=== PATIENT | female | born 1935 | race Caucasian/White ===

== ENCOUNTER 2016-12-19 17:47 | Inpatient (IN) | payer MEDICARE, OTHER, MEDICAID ==
[2016-12-19] MEDS ORDERED: Sodium Polystyrene Sulfonate 15 GM/60 ML Susp 60 ML Bot PO ONE (18:42)
--- NOTE | 2016-12-19 19:06 | EDM.PDOC ---
ED HPI GENERAL MEDICAL PROBLEM - General Chief Complaint: General Stated Complaint: Shortness of Breath Time Seen by Provider: 12/19/16 17:59 Source of Information: Reports: Patient, RN Notes Reviewed History Limitations: Reports: Other (questionable reliability) - History of Present Illness INITIAL COMMENTS - FREE TEXT/NARRATIVE: Patient sent here from [place] for evaluation of continuing cough that has been treated with Doxy since December 15. Patient denies any antibiotics during history and ROS. Today patient was complaining that she felt more SOB than usual. NH said that room air sats were around 93%, patient usually is around 95% . No fevers or other changes noted by NH. Patient has been doing fine and eating well otherwise. Patient's complaints during ROS included continued cough , SOB sensation when coughing (not when not coughing) and chest wall aches anteriorly when coughing. - Related Data Allergies Allergy/AdvReac Type Severity Reaction Status Date / Time codeine Allergy Hives Verified 11/18/15 14:18 morphine Allergy Cannot Verified 11/18/15 14:18 Remember Penicillins Allergy Hives Verified 11/18/15 14:18 Sulfa (Sulfonamide Allergy Hives Verified 11/18/15 14:18 Antibiotics) Home Meds: Home Meds Insulin Glarg,Human.Rec.Analog [Lantus] 35 unit SUBCUT BEDTIME 01/04/14 [History ] Aspirin 81 mg PO DAILY 11/18/15 [History] Lisinopril 10 mg PO DAILY 11/18/15 [History] Pregabalin [Lyrica] 100 mg PO DAILY 11/18/15 [History] ALPRAZolam [Xanax] 0.25 mg PO TID 12/19/16 [History] Acetaminophen 650 mg PO Q6HR PRN 12/19/16 [History] Acetaminophen [Acetaminophen Extra Strength] 500 mg PO DAILY 12/19/16 [History] Acetaminophen/HYDROcodone [[place] 325-5 MG] 1 tab PO DAILY PRN 12/19/16 [History] Acetaminophen/HYDROcodone [[place] 325-5 MG] 1 tab PO Q6H 12/19/16 [History] Acetylcysteine [Mucomyst 20%] 200 mg NEB TID 12/19/16 [History] Albuterol/Ipratropium [DuoNeb 3.0-0.5 MG/3 ML] 3 ml NEB Q6HRRT 12/19/16 [History ] Benzonatate [Tessalon Perles] 200 mg PO TID PRN 12/19/16 [History] Doxycycline Hyclate 100 mg PO BID 12/19/16 [History] Fexofenadine HCl [Allergy Relief] 180 mg PO Q12HR PRN 12/19/16 [History] Hydrocodone/Acetaminophen [[place] 5-325 Tablet] 1 each PO BEDTIME 12/19/16 [ History] Insulin Aspart [NovoLOG] 15 unit SUBCUT TIDAC 12/19/16 [History] Loperamide HCl [Imodium A-D] 4 mg PO ASDIRECTED PRN 12/19/16 [History] Magnesium Oxide 400 mg PO DAILY 12/19/16 [History] Multivitamin [Multi-Day Vitamins] 1 each PO DAILY 12/19/16 [History] Mupirocin Oint [Bactroban Oint] 22 gm TOP Q8HR PRN 12/19/16 [History] Polyethylene Glycol 3350 [MiraLAX] 17 gm PO DAILY 12/19/16 [History] Ranitidine HCl [Zantac 75] 75 mg PO BID 12/19/16 [History] Trolamine Salicylate/Aloe Vera [Analgesic Creme 10% Cream] 85 gm TP ASDIRECTED PRN 12/19/16 [History] amLODIPine [Norvasc] 5 mg PO DAILY 12/19/16 [History] busPIRone HCl [Buspirone HCl] 7.5 mg PO BEDTIME 12/19/16 [History] busPIRone HCl [Buspirone HCl] 15 mg PO DAILY 12/19/16 [History] guaiFENesin/Dextromethorphan [Guaifenesin Dm Syrup] 10 ml PO Q4HR PRN 12/19/16 [ History] Past Medical History HEENT History: Reports: Cataract, Hard of Hearing, Impaired Vision Cardiovascular History: Reports: Arrhythmia, Blood Clots/VTE/DVT, High Cholesterol, Hypertension, PVD Respiratory History: Reports: COPD Gastrointestinal History: Reports: Chronic Constipation, GERD Genitourinary History: Reports: Urinary Incontinence, UTI, Recurrent [facility] History: Reports: Dysfunctional Uterine Bleeding, Fibroids, Musculoskeletal History: Reports: Amputation, Back Pain, Chronic, Neck Pain, Chronic, Osteoarthritis, Osteoporosis, Other (See Below) Other Musculoskeletal History: osteomyelitis of the left heel by bone scan on with 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 Neurological History: Reports: Alzheimers Disease, Neuropathy, Diabetic Psychiatric History: Reports: Anxiety, Dementia, Depression Endocrine/Metabolic History: Reports: Diabetes, Type II, IDDM, Osteoporosis Hematologic History: Reports: None Immunologic History: Reports: None Oncologic (Cancer) History: Reports: None Dermatologic History: Reports: Other (See Below) Other Dermatologic History: chronic diabetic foot ulcers - Infectious Disease History Infectious Disease History: Reports: Chicken Pox - Past Surgical History Head Surgeries/Procedures: Reports: None HEENT Surgical History: Reports: Adenoidectomy, Oral Surgery, Tonsillectomy Respiratory Surgical History: Reports: None Female Surgical History: Reports: Hysterectomy, Salpingo-Oophorectomy Oncologic Surgical History: Reports: None - Past Imaging History Past Imaging History: Reports: Bone Scan Social & Family History - Family History : Reports: UTI, Recurrent - Tobacco Use Smoking Status *Q: Current Some Day Smoker Years of Tobacco use: 72 Packs/Tins Daily: 1 Used Tobacco, but Quit: No Month Tobacco Last Used: January Second Hand Smoke Exposure: No - Caffeine Use Caffeine Use: Reports: Coffee - Alcohol Use Days Per Week of Alcohol Use: 0 - Recreational Drug Use Recreational Drug Use: No Drug Use in Last 12 Months: No Recreational Drug Type: Reports: Vicodin, Other (see below) (Tramadol) Recreational Drug Use Frequency: Daily - Living Situation & Occupation Living situation: Reports: , Extended Care Facility Occupation: Retired ED ROS GENERAL - Review of Systems Review Of Systems: See Below (questionable reliability) Constitutional: Reports: No Symptoms. Denies: Fever, Chills, Weakness, Diaphoresis, Decreased Appetite HEENT: Reports: No Symptoms. Denies: Rhinitis, Sinus Problem, Throat Pain Respiratory: Reports: Shortness of Breath (with coughing), Cough, Other ( anterior chest discomfort bilaterally when coughing). Denies: Wheezing, Pleuritic Chest Pain, Sputum, Hemoptysis Cardiovascular: Reports: No Symptoms Endocrine: Reports: No Symptoms GI/Abdominal: Reports: No Symptoms : Reports: No Symptoms Musculoskeletal: Reports: No Symptoms (no acute changes otherwise) Skin: Reports: No Symptoms Neurological: Reports: No Symptoms Psychiatric: Reports: No Symptoms Hematologic/Lymphatic: Reports: No Symptoms ED EXAM, GENERAL - Physical Exam Exam: See Below Exam Limited By: No Limitations General Appearance: Alert, No Apparent Distress, Obese Eye Exam: Bilateral Eye: EOMI, PERRL Ears: Normal External Exam, Normal Canal, Hearing Grossly Normal, Normal TMs Nose: Normal Inspection, Normal Mucosa, No Blood Throat/Mouth: Normal Inspection, Normal Oropharynx, Normal Voice, No Airway Compromise Head: Atraumatic, Normocephalic Neck: Normal Inspection, Supple, Non-Tender, Full Range of Motion. No: Carotid Bruit, Lymphadenopathy (L), Lymphadenopathy (R) Respiratory/Chest: No Respiratory Distress, No Accessory Muscle Use, Chest Non- Tender, Rhonchi (throughout all leos). No: Crackles, Rales, Wheezing, Stridor , Accessory Muscle Use Cardiovascular: Normal Peripheral Pulses, Regular Rate, Rhythm, No Murmur Peripheral Pulses: 2+: Radial (L), Radial (R) GI/Abdominal: Normal Bowel Sounds, Soft, Non-Tender Back Exam: Normal Inspection. No: CVA Tenderness (L), CVA Tenderness (R), Muscle Spasm, Paraspinal Tenderness, Vertebral Tenderness Extremities: Normal Capillary Refill, Pedal Edema (right lower leg (left lower leg amputated) has mild edema). No: Leg Pain Neurological: Alert, Normal Reflexes, No Motor/Sensory Deficits Psychiatric: Normal Affect, Normal Mood Skin Exam: Warm, Dry, Other (has dry skin with some excoriations lower right leg. ) Course - Vital Signs Last Recorded V/S: Last Vital Signs Temp 36.8 C 12/19/16 17:58 Pulse 63 12/19/16 17:58 Resp 18 12/19/16 17:58 BP 106/63 12/19/16 17:58 Pulse Ox 98 12/19/16 17:58 - Orders/Labs/Meds Orders: Active Orders 24 hr Category Date Time Status CXR [Chest 2V] [CR] Stat Exams 12/19/16 17:52 Taken UA W/MICROSCOPIC [URIN] Stat Lab 12/19/16 17:53 Uncollected Labs: Laboratory Tests 12/19/16 12/19/16 Range/Units 18:05 18:05 WBC 7.4 (4.0-10.2) K/uL RBC 3.56 L (3.77-5.09) M/uL Hgb 10.5 L (11.7-15.5) g/dL Hct 34.2 (34.0-46.0) % MCV 96.1 (84.0-98.0) fL MCH 29.5 (28.2-33.3) pg MCHC 30.7 L (31.7-36.0) g/dL RDW 14.2 H (11.2-14.1) % Plt Count 347 (150-350) K/uL Neut % (Auto) 67.1 (45.0-80.0) % Lymph % (Auto) 23.6 (10.0-50.0) % Hitchcock % (Auto) 5.5 (2.0-14.0) % Eos % (Auto) 2.6 (0.0-5.0) % Baso % (Auto) 1.2 (0.0-2.0) % Neut # (Auto) 4.98 (1.40-7.00) K/uL Lymph # (Auto) 1.75 (0.50-3.50) K/uL Hitchcock # (Auto) 0.41 (0.00-1.00) K/uL Eos # (Auto) 0.19 (0.00-0.50) K/uL Baso # (Auto) 0.09 (0.00-0.20) K/uL Sodium 132 L (136-145) mmol/L Potassium 6.5 H* (3.5-5.1) mmol/L Chloride 100 (98-107) mmol/L Carbon Dioxide 22.4 (21.0-32.0) mmol/L BUN 58 H (7-18) mg/dL Creatinine 1.74 H (0.51-1.17) mg/dL Est Cr Clr Drug Dosing 23.74 mL/min Estimated GFR (MDRD) 28 mL/min Glucose 173 H (74-106) mg/dL Calcium 9.1 (8.5-10.1) mg/dL Total Bilirubin 0.2 (0.2-1.0) mg/dL AST 35 (15-37) U/L ALT 43 (12-78) U/L Alkaline Phosphatase 131 H (46-116) IU/L Wry-[id number]-Aiykywpmuvy Pept 1997 H (0-125) pg/mL Total Protein 8.9 H (6.4-8.2) g/dL Albumin 3.3 L (3.4-5.0) g/dL Meds: Medications Discontinued Medications Generic Name Dose Route Start Last Admin Trade Name Nadeem PRN Reason Stop Dose Admin Sodium Polystyrene Sulfonate 15 gm 12/19/16 18:42 12/19/16 18:56 Kayexalate PO 12/19/16 18:43 15 gm ONETIME ONE Administration - Radiology Interpretation Free Text/Narrative:: Chest xray performed, third one in the last few weeks. No overall acute change. May have small infiltrate left lower lung. COPD. Mild CHF. - Re-Assessments/Exams Free Text/Narrative Re-Assessment/Exam: 12/19/16 19:11 Vital signs stable. O2 sats 98% room air. WBC normal. Hgb 10.5 Chem showed K of 6.5. Na 132, Cr 1.74, Glu 173 BNP 1996 Patient admitted for treatment of hyperkalemia. Cough heard in ER was dry cough. Patient will be continued on Doxy. Has been afebrile. No elevation in WBC. May be viral in nature and may include COPD/ reactive airway disease component. Will treat with nebs and small amount of prednisone. Blood sugars will be monitored as they will likely elevate secondary to the treatment plan. Will also give smaller amount of lasix given elevated BNP and observe for further improvement. Anticipate 2-3 day stay inpatient. Departure - Departure Time of Disposition: 19:17 Disposition: Admitted As Inpatient 66 Condition: good Clinical Impression: Hyperkalemia, Hyponatremia, Renal insufficiency, IDDM (insulin dependent diabetes mellitus), Respiratory tract infection Clinical Impression: (Ruled Out): Cough - Discharge Information Forms: ED Department Discharge - Problem List & Annotations (1) IDDM (insulin dependent diabetes mellitus) SNOMED Code(s): 54947582 Code(s): E11.9 - TYPE 2 DIABETES MELLITUS WITHOUT COMPLICATIONS; Z79.4 - PENITENTIARY (CURRENT) USE OF INSULIN Status: Chronic Priority: Medium Current Visit: Yes Annotation/Comment:: Blood sugar of 170 today in the emergency room. Otherwise blood sugars apparently stable by limited history. (2) Dementia SNOMED Code(s): 86772528 Code(s): F03.90 - UNSPECIFIED DEMENTIA WITHOUT BEHAVIORAL DISTURBANCE Status: Chronic Priority: Low Current Visit: No Qualifiers: Dementia type: unspecified type Dementia behavioral disturbance: without behavioral disturbance Qualified Code(s): F03.90 - Unspecified dementia without behavioral disturbance (3) Hyperkalemia SNOMED Code(s): 69836507 Code(s): E87.5 - HYPERKALEMIA Status: Acute Priority: High Current Visit: Yes (4) Hyponatremia SNOMED Code(s): 91967061 Code(s): E87.1 - HYPO-OSMOLALITY AND HYPONATREMIA Status: Acute Priority : Medium Current Visit: Yes (5) Renal insufficiency SNOMED Code(s): 531793357, 077481851 Code(s): N28.9 - DISORDER OF KIDNEY AND URETER, UNSPECIFIED Status: Chronic Priority: Low Current Visit: Yes (6) Respiratory tract infection SNOMED Code(s): 457079534, 006262367, 504968429 Code(s): J98.8 - OTHER SPECIFIED RESPIRATORY DISORDERS Status: Acute Priority: Medium Current Visit: Yes - Problem List Review Problem List Initiated/Reviewed/Updated: Yes - My Orders Last 24 Hours: My Active Orders 12/19/16 17:52 CXR [Chest 2V] [CR] Stat 12/19/16 17:53 UA W/MICROSCOPIC [URIN] Stat - Assessment/Plan Admission H&P: Please use this note as an admission H&P Last 24 Hours: My Active Orders 12/19/16 17:52 CXR [Chest 2V] [CR] Stat 12/19/16 17:53 UA W/MICROSCOPIC [URIN] Stat Assessment:: Hyperkalemia, hyponatremia, respiratory tract infection/bronchitis. Plan: as above.
[2016-12-19] MEDS ORDERED: Sodium Chloride 0.9% 10 ML Syringe FLUSH PRN (19:27)
[2016-12-19] MEDS ORDERED: Sodium Chloride 0.9% 1,000 ML IV ONE (19:28)
[2016-12-19] MEDS ORDERED: LOPERAMIDE HCL 4 MG PO PRN (19:29)
[2016-12-19] MEDS ORDERED: Mupirocin Oint 22 GM Tube TOP PRN (19:29)
[2016-12-19] MEDS ORDERED: Acetaminophen/HYDROcodone 325-5 MG Tab PO PRN (19:29)
[2016-12-19] MEDS ORDERED: Acetaminophen 325 MG Tab PO PRN (19:29)
[2016-12-19] MEDS ORDERED: guaiFENesin/Dextromethorphan 100-10 MG/5 ML Soln 10 ML Cup PO PRN (19:29)
[2016-12-19] MEDS ORDERED: ALOE VERA TP PRN (19:29)
[2016-12-19] MEDS ORDERED: Benzonatate 100 MG Cap PO PRN (19:29)
[2016-12-19] MEDS ORDERED: TROLAMINE SALICYLATE TP PRN (19:29)
[2016-12-19] MEDS ORDERED: Doxycycline 100 MG Cap PO SCH (19:30)
[2016-12-19] MEDS ORDERED: Nicotine 21 MG/24 Hr Patch TRDERM SCH (19:30)
[2016-12-19] MEDS ORDERED: Sodium Polystyrene Sulfonate 15 GM/60 ML Susp 60 ML Bot PO SCH (19:30)
[2016-12-19] MEDS ORDERED: Acetaminophen/HYDROcodone 325-5 MG Tab PO SCH ×2 (19:30→20:00)
[2016-12-19] MEDS ORDERED: predniSONE 20 MG Tab PO ONE (19:38)
[2016-12-19] MEDS ORDERED: Furosemide 20 MG Tab PO ONE (19:42)
[2016-12-19] MEDS ORDERED: Azithromycin 500 MG in Sodium Chloride 0.9% 250 ML IV SCH (19:45)
[2016-12-19] MEDS ORDERED: [UNRECOGNIZED DRUG - OTHER] SUBCUT SCH (20:00)
[2016-12-19] MEDS ORDERED: INSULIN GLARGINE SUBCUT SCH (20:00)
[2016-12-19] MEDS ORDERED: Albuterol/Ipratropium 3.0-0.5 MG/3 ML Neb Soln NEB SCH (20:00)
[2016-12-19] MEDS ORDERED: BUSPIRONE HCL 7.5 MG PO SCH (20:00)
[2016-12-19] MEDS ORDERED: Loperamide 2 MG Tab PO PRN (20:09)
[2016-12-19 21:20] VITALS: BP 165/46
--- NOTE | 2016-12-19 23:06 | PCM.DCSUM1 ---
Discharge Summary - Hospital Course Brief History: Admitted for treatment of hyperkalemia and cough. Noted after admission to have intermittent worsening bradycardia with rate in 30s. At times appeared to have absence of P waves. BP remained stable. At times this appeared to correlate with patient's prolonged coughing spells. 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 Otherwise blood sugars apparently stable by limited history. (2) Dementia SNOMED Code(s): 76850393 ICD Code: F03.90 - UNSPECIFIED DEMENTIA WITHOUT BEHAVIORAL DISTURBANCE Status: Chronic Priority: Low Current Visit: No Qualifiers: Dementia type: unspecified type Dementia behavioral disturbance: without behavioral disturbance Qualified Code(s): F03.90 - Unspecified dementia without behavioral disturbance (3) Hyperkalemia SNOMED Code(s): 86553349 ICD Code: E87.5 - HYPERKALEMIA Status: Acute Priority: High Current Visit: Yes (4) Hyponatremia SNOMED Code(s): 70888489 ICD Code: E87.1 - HYPO-OSMOLALITY AND HYPONATREMIA Status: Acute Priority : Medium Current Visit: Yes (5) Renal insufficiency SNOMED Code(s): 103661126, 327423741 ICD Code: N28.9 - DISORDER OF KIDNEY AND URETER, UNSPECIFIED Status: Chronic Priority: Low Current Visit: Yes (6) Respiratory tract infection SNOMED Code(s): 334667547, 705188865, 987888830 ICD Code: J98.8 - OTHER SPECIFIED RESPIRATORY DISORDERS Status: Acute Priority: Medium Current Visit: Yes (7) Bradycardia SNOMED Code(s): 29319022 ICD Code: R00.1 - BRADYCARDIA, UNSPECIFIED Status: Acute Priority: High Current Visit: No Onset Date: 11/18/15 Problem Details: Bradycardia that at times was in mid 30s. O2 sats/BP stable. At times it appeared that P waves were intermittently absent on monitor. Patient was transferred last year to [facility] for Bradycardia. No pacemaker at that time. Patient wishes to be seen by Cardiology when her Bradycardia was discussed tonight. She is DNR, but would be willing to consider pacemaker if indicated. It is noted that the bradycardia at times appears to coincide with patient's prolonged coughing spells. Discussed patient with from [facility]. He accepted patient for transfer to [facility] for further monitoring and evaluation. - Patient Summary/Data Complications: none Hospital Course: Patient admitted for elevated potassium. Also continued treatment for respiratory tract infection and cough. Noted on monitor to have multiple episodes of bradycardia, and at times appeared to drop her p waves. After consult with Dr. Nesbitt, Hospitalist at [facility], it was decided to transfer patient there for continued monitoring and workup. Cardiology available for consult. - Discharge Plan Home Medications: Home Meds Insulin Glarg,Human.Rec.Analog [Lantus] 35 unit SUBCUT BEDTIME 01/04/14 [History ] Aspirin 81 mg PO DAILY 11/18/15 [History] Lisinopril 10 mg PO DAILY 11/18/15 [History] Pregabalin [Lyrica] 100 mg PO DAILY 11/18/15 [History] ALPRAZolam [Xanax] 0.25 mg PO TID 12/19/16 [History] Acetaminophen 650 mg PO Q6HR PRN 12/19/16 [History] Acetaminophen [Acetaminophen Extra Strength] 500 mg PO DAILY 12/19/16 [History] Acetaminophen/HYDROcodone [[place] 325-5 MG] 1 tab PO DAILY PRN 12/19/16 [History] Acetylcysteine [Mucomyst 20%] 200 mg NEB TID 12/19/16 [History] Albuterol/Ipratropium [DuoNeb 3.0-0.5 MG/3 ML] 3 ml NEB Q6HRRT 12/19/16 [History ] Benzonatate [Tessalon Perles] 200 mg PO TID PRN 12/19/16 [History] Doxycycline Hyclate 100 mg PO BID 12/19/16 [History] Fexofenadine HCl [Allergy Relief] 180 mg PO Q12HR PRN 12/19/16 [History] Hydrocodone/Acetaminophen [[place] 5-325 Tablet] 1 each PO BEDTIME 12/19/16 [ History] Insulin Aspart [NovoLOG] 15 unit SUBCUT TIDAC 12/19/16 [History] Loperamide HCl [Imodium A-D] 4 mg PO ASDIRECTED PRN 12/19/16 [History] Magnesium Oxide 400 mg PO DAILY 12/19/16 [History] Multivitamin [Multi-Day Vitamins] 1 each PO DAILY 12/19/16 [History] Mupirocin Oint [Bactroban Oint] 22 gm TOP Q8HR PRN 12/19/16 [History] Polyethylene Glycol 3350 [MiraLAX] 17 gm PO DAILY 12/19/16 [History] Ranitidine HCl [Zantac 75] 75 mg PO BID 12/19/16 [History] Trolamine Salicylate/Aloe Vera [Analgesic Creme 10% Cream] 85 gm TP ASDIRECTED PRN 12/19/16 [History] amLODIPine [Norvasc] 5 mg PO DAILY 12/19/16 [History] busPIRone HCl [Buspirone HCl] 7.5 mg PO BEDTIME 12/19/16 [History] busPIRone HCl [Buspirone HCl] 15 mg PO DAILY 12/19/16 [History] guaiFENesin/Dextromethorphan [Guaifenesin Dm Syrup] 10 ml PO Q4HR PRN 12/19/16 [ History] Forms: ED Department Discharge Referrals: Dario Mead MD [Primary Care Provider] - - Discharge Summary/Plan Comment DC Time >30 min.: No - Patient Data Vitals - Most Recent: Last Vital Signs Temp 37.1 C 12/19/16 19:10 Pulse 64 12/19/16 19:10 Resp 18 12/19/16 19:10 BP 165/46 H 12/19/16 19:10 Pulse Ox 98 12/19/16 19:24 Weight - Most Recent: 87.09 kg I&O - Last 24 hours: Intake & Output 12/19/16 12/19/16 12/19/16 06:59 14:59 22:59 Intake Total 250 Output Total 200 Balance 50 Med Orders - Current: Current Medications Acetaminophen (Tylenol) 650 mg PO Q6HR PRN PRN Reason: Pain Acetaminophen (Tylenol Extra Strength) 500 mg PO DAILY [facility] Hydrocodone Bitart/Acetaminophen ([place] 325-5 Mg) 1 tab PO DAILY PRN PRN Reason: Pain Hydrocodone Bitart/Acetaminophen ([place] 325-5 Mg) 1 tab PO BEDTIME [facility] Last Admin: 12/19/16 20:37 Dose: 1 tab Acetylcysteine (Mucomyst 20%) 200 mg NEB TID [facility] Albuterol/Ipratropium (Duoneb 3.0-0.5 Mg/3 Ml) 3 ml NEB Q6HRRT [facility] Last Admin: 12/19/16 20:38 Dose: 3 ml Alprazolam (Xanax) 0.25 mg PO TID [facility] Amlodipine Besylate (Norvasc) 5 mg PO DAILY [facility] Aspirin (Aspirin) 81 mg PO DAILY [facility] Benzonatate (Tessalon Perles) 200 mg PO TID PRN PRN Reason: Cough Last Admin: 12/19/16 21:43 Dose: 200 mg Buspirone HCl (Buspar) 15 mg PO DAILY [facility] Buspirone HCl (Buspar) 7.5 mg PO BEDTIME [facility] Fexofenadine HCl (Gracy) 180 mg PO Q12HR PRN PRN Reason: Cough Guaifenesin/Dextromethorphan (Robitussin Dm) 10 ml PO Q4HR PRN PRN Reason: Cough Sodium Chloride (Normal Saline) 1,000 mls @ 75 mls/hr IV .BOLUS ONE Stop: 12/20/16 08:47 Last Admin: 12/19/16 20:40 Dose: 75 mls/hr Azithromycin 500 mg/ Sodium (Chloride) 250 mls @ 250 mls/hr IV Q24H [facility] Last Admin: 12/19/16 20:38 Dose: 250 mls/hr Insulin Aspart (Novolog) 0 unit SUBCUT TIDAC [facility] PRN Reason: Protocol Insulin Detemir (Levemir) 35 unit SUBCUT BEDTIME [facility] Lisinopril (Prinivil) 10 mg PO DAILY [facility] Loperamide HCl (Imodium Ad) 4 mg PO ASDIRECTED PRN PRN Reason: Diarrhea Magnesium Oxide (Magnesium Oxide) 400 mg PO DAILY [facility] Multivitamins/Minerals/Vitamin C (Tab-A-Jessie) 1 tab PO DAILY [facility] Mupirocin (Bactroban Oint) 22 gm TOP Q8HR PRN PRN Reason: Rash Nicotine (Habitrol) 21 mg TRDERM DAILY [facility] Last Admin: 12/19/16 20:35 Dose: 21 mg Non-Formulary Medication (Ranitidine Hcl [Zantac 75]) 75 mg PO BID [facility] Non-Formulary Medication (Trolamine Salicylate/Aloe Vera) 85 gm TP ASDIRECTED PRN PRN Reason: Pain Polyethylene Glycol (Miralax) 17 gm PO DAILY [facility] Prednisone (Prednisone) 40 mg PO WITHBREAKFAST [facility] Pregabalin (Lyrica) 100 mg PO DAILY [facility] Sodium Chloride (Saline Flush) 10 ml FLUSH ASDIRECTED PRN PRN Reason: Keep Vein Open Sodium Polystyrene Sulfonate (Kayexalate) 15 gm PO Q6H [facility] Last Admin: 12/19/16 20:41 Dose: Not Given Discontinued Medications Hydrocodone Bitart/Acetaminophen ([place] 325-5 Mg) 1 tab PO Q6H [facility] Last Admin: 12/19/16 20:40 Dose: Not Given Doxycycline Hyclate (Vibramycin) 100 mg PO BID [facility] Last Admin: 12/19/16 21:33 Dose: Not Given Furosemide (Lasix) 20 mg PO ONETIME ONE Stop: 12/19/16 19:43 Last Admin: 12/19/16 20:40 Dose: 20 mg Insulin Aspart (Novolog) 15 unit SUBCUT TIDAC [facility] PRN Reason: Protocol Prednisone (Prednisone) 40 mg PO ONETIME ONE Stop: 12/19/16 19:39 Last Admin: 12/19/16 20:39 Dose: 40 mg Sodium Polystyrene Sulfonate (Kayexalate) 15 gm PO ONETIME ONE Stop: 12/19/16 18:43 Last Admin: 12/19/16 18:56 Dose: 15 gm *Q Meaningful Use (DIS) - VTE *Q VTE Criteria *Q: - Stroke *Q Stroke Criteria *Q: - AMI *Q AMI Criteria *Q:
--- NOTE | 2016-12-19 23:15 | PCM.SN ---
- Free Text/Narrative Note: EKG performed showed rate of 51, normal axis. Sinus Bradycardia. Normal P-R. No acute ST changes.
[2016-12-20] MEDS ORDERED: Insulin Aspart 100 Units/ML 3 ML Pen SUBCUT SCH ×2 (07:00)
[2016-12-20] MEDS ORDERED: Non-Formulary Medication 1 Each (Pregabalin [Lyrica] 100 MG) PO SCH (08:00)
[2016-12-20] MEDS ORDERED: Magnesium Oxide 400 MG Tab PO SCH (08:00)
[2016-12-20] MEDS ORDERED: Multivitamin Tab PO SCH (08:00)
[2016-12-20] MEDS ORDERED: Non-Formulary Medication 1 Each (Ranitidine Hcl [Zantac 75] 75 MG) PO SCH (08:00)
[2016-12-20] MEDS ORDERED: Polyethylene Glycol 3350 Powder 17 GM Packet PO SCH (08:00)
[2016-12-20] MEDS ORDERED: busPIRone 15 MG Tab PO SCH ×2 (08:00→20:00)
[2016-12-20] MEDS ORDERED: Acetylcysteine 20% 200 MG/ML 30 ML Nebulizer Soln SDV NEB SCH (08:00)
[2016-12-20] MEDS ORDERED: ALPRAZolam 0.25 MG Tab PO SCH (08:00)
[2016-12-20] MEDS ORDERED: Pregabalin 25 MG Cap PO SCH (08:00)
[2016-12-20] MEDS ORDERED: Aspirin 81 MG Tab.Chew PO SCH (08:00)
[2016-12-20] MEDS ORDERED: predniSONE 20 MG Tab PO SCH (08:00)
[2016-12-20] MEDS ORDERED: Lisinopril 10 MG Tab PO SCH (08:00)
[2016-12-20] MEDS ORDERED: Acetaminophen 500 MG Tab PO SCH (08:00)
[2016-12-20] MEDS ORDERED: amLODIPine 5 MG Tab PO SCH (08:00)
[2016-12-20] MEDS ORDERED: Insulin Detemir 100 Units/ML 3 ML Pen SUBCUT SCH (20:00)
== END 2016-12-19 23:37 | DRG 641 ==
LOC: LL.ED 17:47 → LL.MS 18:39 → UNDOADMIN 18:39 → LL.MS 19:29 → UNDODISIN 23:37
PROVIDERS: ADMIT Emergency Medicine; ATTEND Emergency Medicine
DX: E87.5 Hyperkalemia (principal); E87.1 Hypo-osmolality and hyponatremia; R00.1 Bradycardia, unspecified; J98.8 Other specified respiratory disorders; I12.9 Hypertensive chronic kidney disease with stage 1 through stage 4 chronic kidney disease, or unspecified chronic kidney disease; E11.22 Type 2 diabetes mellitus with diabetic chronic kidney disease; N18.9 Chronic kidney disease, unspecified; Z79.4 Long term (current) use of insulin; E11.40 Type 2 diabetes mellitus with diabetic neuropathy, unspecified; E78.00 Pure hypercholesterolemia, unspecified; I73.9 Peripheral vascular disease, unspecified; J44.9 Chronic obstructive pulmonary disease, unspecified; K21.9 Gastro-esophageal reflux disease without esophagitis; K59.09 Other constipation; L21.9 Seborrheic dermatitis, unspecified; R32 Unspecified urinary incontinence; M19.90 Unspecified osteoarthritis, unspecified site; M81.0 Age-related osteoporosis without current pathological fracture; Z89.512 Acquired absence of left leg below knee; G30.9 Alzheimer's disease, unspecified; F02.80 Dementia in other diseases classified elsewhere, unspecified severity, without behavioral disturbance, psychotic disturbance, mood disturbance, and anxiety; F32.9 Major depressive disorder, single episode, unspecified; F41.9 Anxiety disorder, unspecified; Z86.718 Personal history of other venous thrombosis and embolism; F17.200 Nicotine dependence, unspecified, uncomplicated; H91.90 Unspecified hearing loss, unspecified ear; Z79.82 Long term (current) use of aspirin; Z79.899 Other long term (current) drug therapy; Z88.0 Allergy status to penicillin; Z88.2 Allergy status to sulfonamides; Z88.6 Allergy status to analgesic agent
CPT/HCPCS: 36415; 71020; 80053; 81001; 83880; 85025; 93005; 99284; A9270-GY; J0456; J7030; J7050

== ENCOUNTER 2018-01-18 16:05 | Inpatient (IN) | payer MEDICARE, OTHER ==
--- NOTE | 2018-01-18 16:25 | EDM.PDOC ---
ED HPI GENERAL MEDICAL PROBLEM - General Chief Complaint: General Stated Complaint: SOB, flucuating sugars Time Seen by Provider: 01/18/18 16:09 Source of Information: Reports: Patient, Residential Records History Limitations: Reports: Altered Mental Status - History of Present Illness INITIAL COMMENTS - FREE TEXT/NARRATIVE: Patient is a 82-year-old female who is well known to myself seeing today lethargic confused hypoxic hypotensive with nausea and emesis 2 days brought in for evaluation and treatment. Daughter states that she went to the doctor last week coughing was placed on prednisone and sugar climbed. Onset: Gradual Duration: Day(s): (2 days), Getting Worse Location: Reports: Chest, Abdomen Quality: Reports: Other (No pain at present time) Severity: Moderate Improves with: Reports: None Worsens with: Reports: None Associated Symptoms: Reports: Cough, Diaphoresis, Nausea/Vomiting - Related Data Allergies Allergy/AdvReac Type Severity Reaction Status Date / Time codeine Allergy Hives Verified 01/18/18 16:12 morphine Allergy Cannot Verified 01/18/18 16:12 Remember Penicillins Allergy Hives Verified 01/18/18 16:12 Sulfa (Sulfonamide Allergy Hives Verified 01/18/18 16:12 Antibiotics) Home Meds: Home Meds Insulin Glarg,Human.Rec.Analog [Lantus] 35 unit SUBCUT BEDTIME 01/04/14 [History ] Aspirin 81 mg PO DAILY 11/18/15 [History] Lisinopril 10 mg PO DAILY 11/18/15 [History] Pregabalin [Lyrica] 100 mg PO DAILY 11/18/15 [History] ALPRAZolam [Xanax] 0.25 mg PO TID 12/19/16 [History] Acetaminophen 650 mg PO Q6HR PRN 12/19/16 [History] Acetaminophen [Acetaminophen Extra Strength] 500 mg PO DAILY 12/19/16 [History] Acetaminophen/HYDROcodone [[place] 325-5 MG] 1 tab PO DAILY PRN 12/19/16 [History] Acetylcysteine [Mucomyst 20%] 200 mg NEB TID 12/19/16 [History] Albuterol/Ipratropium [DuoNeb 3.0-0.5 MG/3 ML] 3 ml NEB Q6HRRT 12/19/16 [History ] Benzonatate [Tessalon Perles] 200 mg PO TID PRN 12/19/16 [History] Doxycycline Hyclate 100 mg PO BID 12/19/16 [History] Fexofenadine HCl [Allergy Relief] 180 mg PO Q12HR PRN 12/19/16 [History] Hydrocodone/Acetaminophen [[place] 5-325 Tablet] 1 each PO BEDTIME 12/19/16 [ History] Insulin Aspart [NovoLOG] 15 unit SUBCUT TIDAC 12/19/16 [History] Loperamide HCl [Imodium A-D] 4 mg PO ASDIRECTED PRN 12/19/16 [History] Magnesium Oxide 400 mg PO DAILY 12/19/16 [History] Multivitamin [Multi-Day Vitamins] 1 each PO DAILY 12/19/16 [History] Mupirocin Oint [Bactroban Oint] 22 gm TOP Q8HR PRN 12/19/16 [History] Polyethylene Glycol 3350 [MiraLAX] 17 gm PO DAILY 12/19/16 [History] Ranitidine HCl [Zantac 75] 75 mg PO BID 12/19/16 [History] Trolamine Salicylate/Aloe Vera [Analgesic Creme 10% Cream] 85 gm TP ASDIRECTED PRN 12/19/16 [History] amLODIPine [Norvasc] 5 mg PO DAILY 12/19/16 [History] busPIRone HCl [Buspirone HCl] 7.5 mg PO BEDTIME 12/19/16 [History] busPIRone HCl [Buspirone HCl] 15 mg PO DAILY 12/19/16 [History] guaiFENesin/Dextromethorphan [Guaifenesin Dm Syrup] 10 ml PO Q4HR PRN 12/19/16 [ History] Past Medical History HEENT History: Reports: Cataract, Hard of Hearing, Impaired Vision Cardiovascular History: Reports: Afib, Arrhythmia, Blood Clots/VTE/DVT, High Cholesterol, Hypertension, PVD Respiratory History: Reports: COPD Gastrointestinal History: Reports: Chronic Constipation, GERD Genitourinary History: Reports: Urinary Incontinence, UTI, Recurrent 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: Dysfunctional Uterine Bleeding, Fibroids, Musculoskeletal History: Reports: Amputation, Back Pain, Chronic, Neck Pain, Chronic, Osteoarthritis, Osteoporosis, Other (See Below) Other Musculoskeletal History: osteomyelitis of the left heel by bone scan on with 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 Neurological History: Reports: Alzheimers Disease, Neuropathy, Diabetic Psychiatric History: Reports: Anxiety, Dementia, Depression Endocrine/Metabolic History: Reports: Diabetes, Type II, IDDM, Osteoporosis Hematologic History: Reports: None Immunologic History: Reports: None Oncologic (Cancer) History: Reports: None Dermatologic History: Reports: Other (See Below) Other Dermatologic History: chronic diabetic foot ulcers - Infectious Disease History Infectious Disease History: Reports: Chicken Pox - Past Surgical History Head Surgeries/Procedures: Reports: None HEENT Surgical History: Reports: Adenoidectomy, Oral Surgery, Tonsillectomy Respiratory Surgical History: Reports: None Female Surgical History: Reports: Hysterectomy, Salpingo-Oophorectomy Oncologic Surgical History: Reports: None - Past Imaging History Past Imaging History: Reports: Bone Scan Social & Family History - Family History : Reports: UTI, Recurrent - Caffeine Use Caffeine Use: Reports: None - Living Situation & Occupation Living situation: Reports: , Extended Care Facility Occupation: Retired ED ROS GENERAL - Review of Systems Review Of Systems: See Below Constitutional: Reports: Diaphoresis, Decreased Appetite HEENT: Reports: No Symptoms Respiratory: Reports: Shortness of Breath, Cough, Other (Hypoxia) Cardiovascular: Reports: No Symptoms Endocrine: Reports: No Symptoms GI/Abdominal: Reports: Diarrhea, Nausea, Vomiting : Reports: No Symptoms Musculoskeletal: Reports: No Symptoms Skin: Reports: No Symptoms ED EXAM, GENERAL - Physical Exam Exam: See Below Exam Limited By: Altered Mental Status General Appearance: WD/WN, Moderate Distress Ears: Normal External Exam, Normal Canal, Hearing Grossly Normal, Normal TMs Nose: Normal Inspection, Normal Mucosa, No Blood Throat/Mouth: Normal Inspection, Normal Lips, Normal Teeth, Normal Gums, Normal Oropharynx, Normal Voice, No Airway Compromise Head: Atraumatic, Normocephalic Neck: Normal Inspection, Supple, Non-Tender, Full Range of Motion Respiratory/Chest: Respiratory Distress, Decreased Breath Sounds, Rales (Right side) Cardiovascular: Normal Peripheral Pulses, Regular Rate, Rhythm, No Edema, No Gallop, No JVD, No Murmur, No Rub GI/Abdominal: Abnormal Bowel Sounds, Other (Female) Exam: Deferred Rectal (Female) Exam: Deferred Back Exam: Normal Inspection, Decreased Range of Motion Extremities: Normal Inspection, Normal Capillary Refill Neurological: Confused Skin Exam: Warm, Dry, Intact Lymphatic: No Adenopathy Course - Vital Signs Last Recorded V/S: Last Vital Signs Temp Pulse 69 01/18/18 16:43 Resp 17 01/18/18 16:43 BP 102/34 L 01/18/18 16:43 Pulse Ox 94 L 01/18/18 16:43 - Orders/Labs/Meds Orders: Active Orders 24 hr Category Date Time Status EKG Documentation Completion [RC] ASDIRECTED Care 01/18/18 16:12 Active Oxygen Therapy [RC] PRN Care 01/18/18 16:10 Active Pulse Oximetry [RC] PRN Care 01/18/18 16:10 Active RT Aerosol Therapy [RC] ASDIRECTED Care 01/18/18 17:18 Active Chest 1V Frontal [CR] Stat Exams 01/18/18 16:09 Taken C DIFFICILE TOXIN BY PCR [MREF] Stat Lab 01/18/18 17:07 Received CULTURE BLOOD [BC] Stat Lab 01/18/18 16:28 Received UA W/MICROSCOPIC [URIN] Stat Lab 01/18/18 16:44 Ordered Sodium Chloride 0.9% [Saline Flush] Med 01/18/18 16:09 Active 10 ml FLUSH ASDIRECTED PRN Saline Lock Insert [OM.PC] Stat Oth 01/18/18 16:11 Ordered Medication Orders Acetaminophen (Tylenol) 650 mg PO Q4H PRN PRN Reason: Pain (Mild 1-3)/fever Acetaminophen (Tylenol) 650 mg PO Q6HR PRN PRN Reason: Pain Hydrocodone Bitart/Acetaminophen ([place] 325-5 Mg) 1 tab PO Q6H PRN PRN Reason: Pain (moderate 4-6) Acetylcysteine (Mucomyst 20%) 200 mg NEB TID EVANGELINA Albuterol/Ipratropium (Duoneb 3.0-0.5 Mg/3 Ml) 3 ml NEB Q4H PRN PRN Reason: Dyspnea Albuterol/Ipratropium (Duoneb 3.0-0.5 Mg/3 Ml) 3 ml NEB Q6HRRT EVANGELINA Alprazolam (Xanax) 0.25 mg PO TID [facility]ANGELINA Amlodipine Besylate (Norvasc) 5 mg PO DAILY [facility] Aspirin (Aspirin) 81 mg PO DAILY [facility]ANGELINA Benzonatate (Tessalon Perles) 200 mg PO TID PRN PRN Reason: Cough Buspirone HCl (Buspar) 15 mg PO DAILY [facility] Fexofenadine HCl (Gracy) 180 mg PO Q12HR PRN PRN Reason: Cough Guaifenesin/Dextromethorphan (Robitussin Dm) 10 ml PO Q4HR PRN PRN Reason: Cough Piperacillin Sod/Tazobactam (Sod 3.375 gm/ Sodium Chloride) 100 mls @ 200 mls/ hr IV Q6H [facility] Insulin Aspart (Novolog) 15 unit SUBCUT TIDAC [facility] Insulin Detemir (Levemir) 0 unit SUBCUT BID EVANGELINA; Protocol Magnesium Oxide (Magnesium Oxide) 400 mg PO DAILY [facility] Metronidazole (Flagyl) 500 mg PO Q8H [facility] Mupirocin (Bactroban Oint) 22 gm TOP Q8HR PRN PRN Reason: Rash Non-Formulary Medication (Buspirone Hcl [Buspirone Hcl]) 7.5 mg PO BEDTIME EVANGELINA Non-Formulary Medication (Insulin Glarg,Human.Rec.Analog) 35 unit SUBCUT BEDTIME [facility]ANGELINA Non-Formulary Medication (Loperamide Hcl [Imodium A-D]) 4 mg PO ASDIRECTED PRN PRN Reason: Diarrhea Non-Formulary Medication (Pregabalin [Lyrica]) 100 mg PO DAILY [facility] Non-Formulary Medication (Ranitidine Hcl [Zantac 75]) 75 mg PO BID EVANGELINA Non-Formulary Medication (Trolamine Salicylate/Aloe Vera) 85 gm TP ASDIRECTED PRN PRN Reason: Pain Ondansetron HCl (Zofran) 4 mg IVPUSH Q6H PRN PRN Reason: Nausea/Vomiting Sodium Chloride (Saline Flush) 10 ml FLUSH ASDIRECTED PRN PRN Reason: Keep Vein Open Labs: Laboratory Tests 01/18/18 01/18/18 01/18/18 Range/Units 16:28 16:28 16:28 WBC 18.7 H (4.0-10.2) K/uL RBC 4.35 (3.77-5.09) M/uL Hgb 13.8 D (11.7-15.5) g/dL Hct 41.8 (34.0-46.0) % MCV 96.1 D (84.0-98.0) fL MCH 31.7 (28.2-33.3) pg MCHC 33.0 (31.7-36.0) g/dL RDW 13.4 (11.2-14.1) % Plt Count 238 (150-350) K/uL Neut % (Auto) 80.0 (45.0-80.0) % Lymph % (Auto) 10.4 (10.0-50.0) % [place] % (Auto) 8.9 (2.0-14.0) % Eos % (Auto) 0.4 (0.0-5.0) % Baso % (Auto) 0.3 (0.0-2.0) % Neut # (Auto) 14.94 H (1.40-7.00) K/uL Lymph # (Auto) 1.94 (0.50-3.50) K/uL [place] # (Auto) 1.66 H (0.00-1.00) K/uL Eos # (Auto) 0.08 (0.00-0.50) K/uL Baso # (Auto) 0.05 (0.00-0.20) K/uL ABG pH (7.35-7.45) ABG pCO2 (35-45) mmHG ABG pO2 (80-105) mmHG ABG HCO3 (22-26) mmol/L ABG Total CO2 (23-27) mmol/L ABG O2 Saturation (95-98) % ABG Base Excess (-2-3) mmol/L O2 Delivery Device Sodium 132 L (136-145) mmol/L Potassium 4.9 (3.5-5.1) mmol/L Chloride 97 L (98-107) mmol/L Carbon Dioxide 23.3 (21.0-32.0) mmol/L BUN 75 H D (7-18) mg/dL Creatinine 2.90 H D (0.51-1.17) mg/dL Est Cr Clr Drug Dosing 14.54 mL/min Estimated GFR (MDRD) 16 mL/min Glucose 95 (74-106) mg/dL Lactic Acid 2.1 H (0.4-2.0) mmol/L Calcium 9.3 (8.5-10.1) mg/dL Total Bilirubin 0.3 (0.2-1.0) mg/dL AST 110 H (15-37) U/L ALT 41 (12-78) U/L Alkaline Phosphatase 90 (46-116) IU/L Troponin I 0.000 (0.000-0.056) ng/mL NT-Pro-B Natriuret Pep 248 H (0-125) pg/mL Total Protein 8.3 H (6.4-8.2) g/dL Albumin 3.0 L (3.4-5.0) g/dL 01/18/18 Range/Units 16:50 WBC (4.0-10.2) K/uL RBC (3.77-5.09) M/uL Hgb (11.7-15.5) g/dL Hct (34.0-46.0) % MCV (84.0-98.0) fL MCH (28.2-33.3) pg MCHC (31.7-36.0) g/dL RDW (11.2-14.1) % Plt Count (150-350) K/uL Neut % (Auto) (45.0-80.0) % Lymph % (Auto) (10.0-50.0) % [place] % (Auto) (2.0-14.0) % Eos % (Auto) (0.0-5.0) % Baso % (Auto) (0.0-2.0) % Neut # (Auto) (1.40-7.00) K/uL Lymph # (Auto) (0.50-3.50) K/uL [place] # (Auto) (0.00-1.00) K/uL Eos # (Auto) (0.00-0.50) K/uL Baso # (Auto) (0.00-0.20) K/uL ABG pH 7.33 L (7.35-7.45) ABG pCO2 36 (35-45) mmHG ABG pO2 89 (80-105) mmHG ABG HCO3 18.9 L (22-26) mmol/L ABG Total CO2 20 L (23-27) mmol/L ABG O2 Saturation 96 (95-98) % ABG Base Excess -7 L (-2-3) mmol/L O2 Delivery Device Nasal cannula Sodium (136-145) mmol/L Potassium (3.5-5.1) mmol/L Chloride (98-107) mmol/L Carbon Dioxide (21.0-32.0) mmol/L BUN (7-18) mg/dL Creatinine (0.51-1.17) mg/dL Est Cr Clr Drug Dosing mL/min Estimated GFR (MDRD) mL/min Glucose (74-106) mg/dL Lactic Acid (0.4-2.0) mmol/L Calcium (8.5-10.1) mg/dL Total Bilirubin (0.2-1.0) mg/dL AST (15-37) U/L ALT (12-78) U/L Alkaline Phosphatase (46-116) IU/L Troponin I (0.000-0.056) ng/mL NT-Pro-B Natriuret Pep (0-125) pg/mL Total Protein (6.4-8.2) g/dL Albumin (3.4-5.0) g/dL Meds: Medications Generic Name Dose Route Start Last Admin Trade Name Freq PRN Reason Stop Dose Admin Acetaminophen 650 mg 01/18/18 17:34 Tylenol PO Q4H PRN Pain (Mild 1-3)/fever Acetaminophen 650 mg 01/18/18 17:45 Tylenol PO Q6HR PRN Pain Hydrocodone Bitart/Acetaminophen 1 tab 01/18/18 17:34 [place] 325-5 Mg PO Q6H PRN Pain (moderate 4-6) Acetylcysteine 200 mg 01/18/18 18:00 Mucomyst 20% NEB TID EVANGELINA Albuterol/Ipratropium 3 ml 01/18/18 17:34 Duoneb 3.0-0.5 Mg/3 Ml NEB Q4H PRN Dyspnea Albuterol/Ipratropium 3 ml 01/18/18 20:00 Duoneb 3.0-0.5 Mg/3 Ml NEB Q6HRRT EVANGELINA Alprazolam 0.25 mg 01/18/18 18:00 Xanax PO TID EVANGELINA Amlodipine Besylate 5 mg 01/19/18 08:00 Norvasc PO DAILY [facility]ANGELINA Aspirin 81 mg 01/19/18 08:00 Aspirin PO DAILY [facility]ANGELINA Benzonatate 200 mg 01/18/18 17:45 Tessalon Perles PO TID PRN Cough Buspirone HCl 15 mg 01/19/18 08:00 Buspar PO DAILY [facility] Fexofenadine HCl 180 mg 01/18/18 17:45 Gracy PO Q12HR PRN Cough Guaifenesin/Dextromethorphan 10 ml 01/18/18 17:45 Robitussin Dm PO Q4HR PRN Cough Piperacillin Sod/Tazobactam 100 mls @ 200 mls/hr 01/18/18 18:00 Sod 3.375 gm/ Sodium Chloride IV Q6H [facility] Insulin Aspart 15 unit 01/19/18 07:00 Novolog SUBCUT TIDAC [facility] Insulin Detemir 0 unit 01/18/18 18:00 Levemir SUBCUT BID [facility] Protocol Magnesium Oxide 400 mg 01/19/18 08:00 Magnesium Oxide PO DAILY [facility] Metronidazole 500 mg 01/18/18 18:00 Flagyl PO Q8H [facility] Mupirocin 22 gm 01/18/18 17:45 Bactroban Oint TOP Q8HR PRN Rash Non-Formulary Medication 7.5 mg 01/18/18 20:00 Buspirone Hcl [Buspirone Hcl] PO BEDTIME EVANGELINA Non-Formulary Medication 35 unit 01/18/18 20:00 Insulin Glarg,Human.Rec.Analog SUBCUT BEDTIME [facility] Non-Formulary Medication 4 mg 01/18/18 17:45 Loperamide Hcl [Imodium A-D] PO ASDIRECTED PRN Diarrhea Non-Formulary Medication 100 mg 01/19/18 08:00 Pregabalin [Lyrica] PO DAILY [facility] Non-Formulary Medication 75 mg 01/18/18 18:00 Ranitidine Hcl [Zantac 75] PO BID [facility] Non-Formulary Medication 85 gm 01/18/18 17:45 Trolamine Salicylate/Aloe Vera TP ASDIRECTED PRN Pain Ondansetron HCl 4 mg 01/18/18 17:34 Zofran IVPUSH Q6H PRN Nausea/Vomiting Sodium Chloride 10 ml 01/18/18 16:09 Saline Flush FLUSH ASDIRECTED PRN Keep Vein Open Discontinued Medications Generic Name Dose Route Start Last Admin Trade Name Freq PRN Reason Stop Dose Admin Albuterol/Ipratropium 3 ml 01/18/18 17:18 06/19/18 17:26 Duoneb 3.0-0.5 Mg/3 Ml NEB 01/18/18 17:19 3 ml ONETIME ONE Administration Departure - Departure Time of Disposition: 18:01 Disposition: Admitted As Inpatient 66 Clinical Impression: C. difficile diarrhea, Renal insufficiency, Dehydration - Discharge Information - Problem List & Annotations (1) Dehydration SNOMED Code(s): 43327518 Code(s): E86.0 - DEHYDRATION Status: Acute Current Visit: No Annotation /Comment:: C. difficile negative IV fluids given for rehydration (2) Sepsis SNOMED Code(s): 45081945 Code(s): A41.9 - SEPSIS, UNSPECIFIED ORGANISM Status: Acute Current Visit : Yes Annotation/Comment:: White count elevated lactic acid elevated were will do blood cultures and treat for the gastroenteritis (3) C. difficile diarrhea SNOMED Code(s): 0482331336212 Code(s): A04.72 - ENTEROCOLITIS D/T CLOSTRIDIUM DIFFICILE, NOT SPCF RECUR Status: Acute Current Visit: Yes Annotation/Comment:: Prior to admission patient was on antibiotics now has diarrhea foul-smelling will do C. difficile cultures (4) Renal failure (ARF), acute on chronic SNOMED Code(s): 989049625 Code(s): N17.9 - ACUTE KIDNEY FAILURE, UNSPECIFIED; N18.9 - CHRONIC KIDNEY DISEASE, UNSPECIFIED Status: Acute Current Visit: Yes Annotation/Comment: : Acute tubular necrosis secondary to dehydration we will rehydrate check labs in the morning - Problem List Review Problem List Initiated/Reviewed/Updated: Yes - My Orders Last 24 Hours: My Active Orders 01/18/18 16:09 Chest 1V Frontal [CR] Stat Sodium Chloride 0.9% [Saline Flush] 10 ml FLUSH ASDIRECTED PRN 01/18/18 16:10 Oxygen Therapy [RC] PRN Pulse Oximetry [RC] PRN 01/18/18 16:11 Saline Lock Insert [OM.PC] Stat 01/18/18 16:12 EKG Documentation Completion [RC] ASDIRECTED 01/18/18 16:28 CULTURE BLOOD [BC] Stat 01/18/18 16:44 UA W/MICROSCOPIC [URIN] Stat 01/18/18 17:07 C DIFFICILE TOXIN BY PCR [MREF] Stat 01/18/18 17:18 RT Aerosol Therapy [RC] ASDIRECTED - Assessment/Plan Admission H&P: Please use this note as an admission H&P Last 24 Hours: My Active Orders 01/18/18 16:09 Chest 1V Frontal [CR] Stat Sodium Chloride 0.9% [Saline Flush] 10 ml FLUSH ASDIRECTED PRN 01/18/18 16:10 Oxygen Therapy [RC] PRN Pulse Oximetry [RC] PRN 01/18/18 16:11 Saline Lock Insert [OM.PC] Stat 01/18/18 16:12 EKG Documentation Completion [RC] ASDIRECTED 01/18/18 16:28 CULTURE BLOOD [BC] Stat 01/18/18 16:44 UA W/MICROSCOPIC [URIN] Stat 01/18/18 17:07 C DIFFICILE TOXIN BY PCR [MREF] Stat 01/18/18 17:18 RT Aerosol Therapy [RC] ASDIRECTED Plan: Patient will be admitted hydrated to try to reverse renal function we will do appropriate lab work to prove C. difficile in the meantime see orders
[2018-01-18 16:57] LABS: O2 DELIVERY DEVICE NASAL CANNULA
[2018-01-18 16:58] LABS: BASE EXCESS ARTERIAL -7 mmol/L (-2-3); BICARBONATE,ARTERIAL 18.9 mmol/L (22-26); O2 SATURATION ARTERIAL 96 % (95-98); PCO2 ARTERIAL 36 mmHG (35-45); PO2 ARTERIAL 89 mmHG (80-105)
[2018-01-18] MEDS ORDERED: Albuterol/Ipratropium 3.0-0.5 MG/3 ML Neb Soln NEB ONE (17:18)
[2018-01-18] MEDS ORDERED: Sodium Chloride 0.9% 1,000 ML IV ONE (17:25)
[2018-01-18] MEDS ORDERED: Albuterol/Ipratropium 3.0-0.5 MG/3 ML Neb Soln NEB PRN (17:34)
[2018-01-18] MEDS ORDERED: Ondansetron 4 MG/2 ML SDV IVPUSH PRN (17:34)
[2018-01-18] MEDS ORDERED: Acetaminophen/HYDROcodone 325-5 MG Tab PO PRN (17:34)
[2018-01-18] MEDS ORDERED: Acetaminophen 325 MG Tab PO PRN ×2 (17:34→17:45)
[2018-01-18] MEDS ORDERED: LOPERAMIDE HCL 4 MG PO PRN (17:45)
[2018-01-18] MEDS ORDERED: Mupirocin Oint 22 GM Tube TOP PRN (17:45)
[2018-01-18] MEDS ORDERED: guaiFENesin/Dextromethorphan 100-10 MG/5 ML Soln 10 ML Cup PO PRN (17:45)
[2018-01-18] MEDS ORDERED: Trolamine Salicylate/Aloe Vera 10% Crm 85 GM Tube TOP PRN (17:45)
[2018-01-18] MEDS ORDERED: Benzonatate 100 MG Cap PO PRN (17:45)
[2018-01-18] MEDS ORDERED: Non-Formulary Medication 1 Each (Ranitidine Hcl [Zantac 75] 75 MG) PO SCH (18:00)
[2018-01-18] MEDS ORDERED: Piperacillin/Tazobactam 3.375 GM in Sodium Chloride 0.9% 100 ML IV SCH (18:00)
[2018-01-18] MEDS ORDERED: Insulin Detemir 100 Units/ML 3 ML Pen SUBCUT SCH ×2 (18:00→20:00)
[2018-01-18] MEDS ORDERED: Insulin Aspart 100 Units/ML 3 ML Pen SUBCUT SCH (19:45)
[2018-01-18] MEDS ORDERED: Acetylcysteine 20% 200 MG/ML 30 ML Nebulizer Soln SDV NEB SCH (20:00)
[2018-01-18] MEDS ORDERED: busPIRone 15 MG Tab PO SCH (20:00)
[2018-01-18] MEDS: Piperacillin/Tazobactam 2.25 GM in Sodium Chloride 0.9% 100 ML IV SCH (20:13)
[2018-01-18] MEDS: metroNIDAZOLE 500 MG Tab PO SCH (20:13)
[2018-01-18] MEDS ORDERED: Acetaminophen/HYDROcodone 325-5 MG Tab PO ONE (20:38)
[2018-01-18] MEDS ORDERED: Insulin Detemir 100 Units/ML 3 ML Pen SUBCUT ONE ×2 (20:52→21:19)
[2018-01-18] MEDS: Pregabalin 25 MG Cap PO SCH (21:39)
[2018-01-18] MEDS: ALPRAZolam 0.25 MG Tab PO SCH (21:39)
[2018-01-18] MEDS: Albuterol/Ipratropium 3.0-0.5 MG/3 ML Neb Soln NEB SCH (21:40)
[2018-01-19] MEDS: Sodium Chloride 0.9% 1,000 ML IV SCH ×3 (02:04→17:19)
[2018-01-19] MEDS: Piperacillin/Tazobactam 2.25 GM in Sodium Chloride 0.9% 100 ML IV SCH ×3 (02:04→17:19)
[2018-01-19] MEDS: metroNIDAZOLE 500 MG Tab PO SCH ×3 (02:04→17:22)
[2018-01-19] MEDS: Albuterol/Ipratropium 3.0-0.5 MG/3 ML Neb Soln NEB SCH ×4 (02:06→19:51)
[2018-01-19] MEDS: Insulin Aspart 100 Units/ML 3 ML Pen SUBCUT SCH ×6 (07:32→19:52)
[2018-01-19] MEDS ORDERED: amLODIPine 5 MG Tab PO SCH (08:00)
[2018-01-19] MEDS ORDERED: busPIRone 15 MG Tab PO SCH (08:00)
[2018-01-19] MEDS ORDERED: Magnesium Oxide 400 MG Tab PO SCH (08:00)
[2018-01-19] MEDS: Formoterol/Mometasone 200-5 MCG 8.8 GM Inhaler IH SCH ×2 (09:16→19:53)
[2018-01-19] MEDS: Sodium Chloride 0.9% 10 ML Syringe FLUSH PRN (09:19)
[2018-01-19] MEDS: ALPRAZolam 0.25 MG Tab PO SCH ×3 (09:22→17:22)
[2018-01-19] MEDS: Aspirin 81 MG Tab.Chew PO SCH (09:22)
[2018-01-19] MEDS: busPIRone 15 MG Tab PO SCH ×3 (09:22→19:51)
[2018-01-19] MEDS: Pregabalin 25 MG Cap PO SCH ×2 (09:23→19:50)
[2018-01-19] MEDS: hydrOXYzine HCl 25 MG Tab PO SCH ×2 (09:23→19:50)
[2018-01-19] MEDS: Famotidine 10 MG Tab PO SCH ×2 (09:27→17:22)
--- NOTE | 2018-01-19 10:39 | PCM.PN ---
- General Info Date of Service: 01/19/18 Admission Dx/Problem (Free Text): Acute renal failure, dehydration, sepsis Functional Status: Reports: Pain Controlled, Tolerating Diet (Tolerating clear liquid diet) - Review of Systems General: Reports: No Symptoms HEENT: Reports: No Symptoms Pulmonary: Reports: No Symptoms Cardiovascular: Reports: No Symptoms Gastrointestinal: Reports: No Symptoms Genitourinary: Reports: No Symptoms Musculoskeletal: Reports: No Symptoms Skin: Reports: No Symptoms Neurological: Reports: No Symptoms Psychiatric: Reports: No Symptoms - Patient Data Vitals - Most Recent: Last Vital Signs Temp 97.3 F 01/19/18 07:26 Pulse 80 01/19/18 07:26 Resp 16 01/19/18 07:26 BP 135/43 L 01/19/18 07:26 Pulse Ox 100 01/19/18 07:26 Weight - Most Recent: 235 lb I&O - Last 24 Hours: Intake & Output 01/18/18 01/19/18 01/19/18 22:59 06:59 14:59 Intake Total 1890 Balance 1890 Lab Results Last 24 Hours: Laboratory Results - last 24 hr 01/18/18 01/18/18 01/18/18 Range/Units 16:28 16:28 16:28 WBC 18.7 H (4.0-10.2) K/uL RBC 4.35 (3.77-5.09) M/uL Hgb 13.8 D (11.7-15.5) g/dL Hct 41.8 (34.0-46.0) % MCV 96.1 D (84.0-98.0) fL MCH 31.7 (28.2-33.3) pg MCHC 33.0 (31.7-36.0) g/dL RDW 13.4 (11.2-14.1) % Plt Count 238 (150-350) K/uL Neut % (Auto) 80.0 (45.0-80.0) % Lymph % (Auto) 10.4 (10.0-50.0) % [place] % (Auto) 8.9 (2.0-14.0) % Eos % (Auto) 0.4 (0.0-5.0) % Baso % (Auto) 0.3 (0.0-2.0) % Neut # (Auto) 14.94 H (1.40-7.00) K/uL Lymph # (Auto) 1.94 (0.50-3.50) K/uL [place] # (Auto) 1.66 H (0.00-1.00) K/uL Eos # (Auto) 0.08 (0.00-0.50) K/uL Baso # (Auto) 0.05 (0.00-0.20) K/uL ABG pH (7.35-7.45) ABG pCO2 (35-45) mmHG ABG pO2 (80-105) mmHG ABG HCO3 (22-26) mmol/L ABG Total CO2 (23-27) mmol/L ABG O2 Saturation (95-98) % ABG Base Excess (-2-3) mmol/L O2 Delivery Device Sodium 132 L (136-145) mmol/L Potassium 4.9 (3.5-5.1) mmol/L Chloride 97 L (98-107) mmol/L Carbon Dioxide 23.3 (21.0-32.0) mmol/L BUN 75 H D (7-18) mg/dL Creatinine 2.90 H D (0.51-1.17) mg/dL Est Cr Clr Drug Dosing 14.54 mL/min Estimated GFR (MDRD) 16 mL/min Glucose 95 (74-106) mg/dL POC Glucose (65-110) mg/dl Lactic Acid 2.1 H (0.4-2.0) mmol/L Calcium 9.3 (8.5-10.1) mg/dL Magnesium (1.8-2.4) mg/dL Total Bilirubin 0.3 (0.2-1.0) mg/dL AST 110 H (15-37) U/L ALT 41 (12-78) U/L Alkaline Phosphatase 90 (46-116) IU/L Troponin I 0.000 (0.000-0.056) ng/mL NT-Pro-B Natriuret Pep 248 H (0-125) pg/mL Total Protein 8.3 H (6.4-8.2) g/dL Albumin 3.0 L (3.4-5.0) g/dL Specimen Type Urine Color Urine Appearance Urine pH (5.0-9.0) Ur Specific [place] (1.005-1.030) Urine Protein (NEGATIVE) mg/dL Urine Glucose (UA) (NEGATIVE) mg/dL Urine Ketones (NEGATIVE) mg/dL Urine Occult Blood (NEGATIVE) Urine Nitrite (NEGATIVE) Urine Bilirubin (NEGATIVE) Urine Urobilinogen (0.2-1.0) E.U./dL Ur Leukocyte Esterase (NEGATIVE) Urine RBC /HPF Urine WBC /HPF Ur Epithelial Cells /LPF Urine Bacteria (NONE TO FEW) /HPF Urine Other 01/18/18 01/18/18 01/19/18 Range/Units 16:50 20:11 06:25 WBC (4.0-10.2) K/uL RBC (3.77-5.09) M/uL Hgb (11.7-15.5) g/dL Hct (34.0-46.0) % MCV (84.0-98.0) fL MCH (28.2-33.3) pg MCHC (31.7-36.0) g/dL RDW (11.2-14.1) % Plt Count (150-350) K/uL Neut % (Auto) (45.0-80.0) % Lymph % (Auto) (10.0-50.0) % [place] % (Auto) (2.0-14.0) % Eos % (Auto) (0.0-5.0) % Baso % (Auto) (0.0-2.0) % Neut # (Auto) (1.40-7.00) K/uL Lymph # (Auto) (0.50-3.50) K/uL [place] # (Auto) (0.00-1.00) K/uL Eos # (Auto) (0.00-0.50) K/uL Baso # (Auto) (0.00-0.20) K/uL ABG pH 7.33 L (7.35-7.45) ABG pCO2 36 (35-45) mmHG ABG pO2 89 (80-105) mmHG ABG HCO3 18.9 L (22-26) mmol/L ABG Total CO2 20 L (23-27) mmol/L ABG O2 Saturation 96 (95-98) % ABG Base Excess -7 L (-2-3) mmol/L O2 Delivery Device Nasal cannula Sodium (136-145) mmol/L Potassium (3.5-5.1) mmol/L Chloride (98-107) mmol/L Carbon Dioxide (21.0-32.0) mmol/L BUN (7-18) mg/dL Creatinine (0.51-1.17) mg/dL Est Cr Clr Drug Dosing mL/min Estimated GFR (MDRD) mL/min Glucose (74-106) mg/dL POC Glucose 130 H (65-110) mg/dl Lactic Acid (0.4-2.0) mmol/L Calcium (8.5-10.1) mg/dL Magnesium 2.4 (1.8-2.4) mg/dL Total Bilirubin (0.2-1.0) mg/dL AST (15-37) U/L ALT (12-78) U/L Alkaline Phosphatase (46-116) IU/L Troponin I (0.000-0.056) ng/mL NT-Pro-B Natriuret Pep (0-125) pg/mL Total Protein (6.4-8.2) g/dL Albumin (3.4-5.0) g/dL Specimen Type Urine Color Urine Appearance Urine pH (5.0-9.0) Ur Specific [place] (1.005-1.030) Urine Protein (NEGATIVE) mg/dL Urine Glucose (UA) (NEGATIVE) mg/dL Urine Ketones (NEGATIVE) mg/dL Urine Occult Blood (NEGATIVE) Urine Nitrite (NEGATIVE) Urine Bilirubin (NEGATIVE) Urine Urobilinogen (0.2-1.0) E.U./dL Ur Leukocyte Esterase (NEGATIVE) Urine RBC /HPF Urine WBC /HPF Ur Epithelial Cells /LPF Urine Bacteria (NONE TO FEW) /HPF Urine Other 01/19/18 01/19/18 01/19/18 Range/Units 06:25 06:25 07:19 WBC 11.1 H (4.0-10.2) K/uL RBC 4.03 (3.77-5.09) M/uL Hgb 12.7 (11.7-15.5) g/dL Hct 39.4 (34.0-46.0) % MCV 97.8 (84.0-98.0) fL MCH 31.5 (28.2-33.3) pg MCHC 32.2 (31.7-36.0) g/dL RDW 13.2 (11.2-14.1) % Plt Count 217 (150-350) K/uL Neut % (Auto) 75.8 (45.0-80.0) % Lymph % (Auto) 14.0 (10.0-50.0) % [place] % (Auto) 9.3 (2.0-14.0) % Eos % (Auto) 0.8 (0.0-5.0) % Baso % (Auto) 0.1 (0.0-2.0) % Neut # (Auto) 8.43 H (1.40-7.00) K/uL Lymph # (Auto) 1.55 (0.50-3.50) K/uL [place] # (Auto) 1.03 H (0.00-1.00) K/uL Eos # (Auto) 0.09 (0.00-0.50) K/uL Baso # (Auto) 0.01 (0.00-0.20) K/uL ABG pH (7.35-7.45) ABG pCO2 (35-45) mmHG ABG pO2 (80-105) mmHG ABG HCO3 (22-26) mmol/L ABG Total CO2 (23-27) mmol/L ABG O2 Saturation (95-98) % ABG Base Excess (-2-3) mmol/L O2 Delivery Device Sodium 134 L (136-145) mmol/L Potassium 4.7 (3.5-5.1) mmol/L Chloride 104 (98-107) mmol/L Carbon Dioxide 19.7 L (21.0-32.0) mmol/L BUN 67 H (7-18) mg/dL Creatinine 2.11 H (0.51-1.17) mg/dL Est Cr Clr Drug Dosing 19.99 mL/min Estimated GFR (MDRD) 22 mL/min Glucose 259 H (74-106) mg/dL POC Glucose 241 H (65-110) mg/dl Lactic Acid (0.4-2.0) mmol/L Calcium 8.2 L (8.5-10.1) mg/dL Magnesium (1.8-2.4) mg/dL Total Bilirubin (0.2-1.0) mg/dL AST (15-37) U/L ALT (12-78) U/L Alkaline Phosphatase (46-116) IU/L Troponin I (0.000-0.056) ng/mL NT-Pro-B Natriuret Pep (0-125) pg/mL Total Protein (6.4-8.2) g/dL Albumin (3.4-5.0) g/dL Specimen Type Urine Color Urine Appearance Urine pH (5.0-9.0) Ur Specific [place] (1.005-1.030) Urine Protein (NEGATIVE) mg/dL Urine Glucose (UA) (NEGATIVE) mg/dL Urine Ketones (NEGATIVE) mg/dL Urine Occult Blood (NEGATIVE) Urine Nitrite (NEGATIVE) Urine Bilirubin (NEGATIVE) Urine Urobilinogen (0.2-1.0) E.U./dL Ur Leukocyte Esterase (NEGATIVE) Urine RBC /HPF Urine WBC /HPF Ur Epithelial Cells /LPF Urine Bacteria (NONE TO FEW) /HPF Urine Other 01/19/18 01/19/18 Range/Units 09:13 10:00 WBC (4.0-10.2) K/uL RBC (3.77-5.09) M/uL Hgb (11.7-15.5) g/dL Hct (34.0-46.0) % MCV (84.0-98.0) fL MCH (28.2-33.3) pg MCHC (31.7-36.0) g/dL RDW (11.2-14.1) % Plt Count (150-350) K/uL Neut % (Auto) (45.0-80.0) % Lymph % (Auto) (10.0-50.0) % [place] % (Auto) (2.0-14.0) % Eos % (Auto) (0.0-5.0) % Baso % (Auto) (0.0-2.0) % Neut # (Auto) (1.40-7.00) K/uL Lymph # (Auto) (0.50-3.50) K/uL [place] # (Auto) (0.00-1.00) K/uL Eos # (Auto) (0.00-0.50) K/uL Baso # (Auto) (0.00-0.20) K/uL ABG pH (7.35-7.45) ABG pCO2 (35-45) mmHG ABG pO2 (80-105) mmHG ABG HCO3 (22-26) mmol/L ABG Total CO2 (23-27) mmol/L ABG O2 Saturation (95-98) % ABG Base Excess (-2-3) mmol/L O2 Delivery Device Sodium (136-145) mmol/L Potassium (3.5-5.1) mmol/L Chloride (98-107) mmol/L Carbon Dioxide (21.0-32.0) mmol/L BUN (7-18) mg/dL Creatinine (0.51-1.17) mg/dL Est Cr Clr Drug Dosing mL/min Estimated GFR (MDRD) mL/min Glucose (74-106) mg/dL POC Glucose 253 H* (65-110) mg/dl Lactic Acid (0.4-2.0) mmol/L Calcium (8.5-10.1) mg/dL Magnesium (1.8-2.4) mg/dL Total Bilirubin (0.2-1.0) mg/dL AST (15-37) U/L ALT (12-78) U/L Alkaline Phosphatase (46-116) IU/L Troponin I (0.000-0.056) ng/mL NT-Pro-B Natriuret Pep (0-125) pg/mL Total Protein (6.4-8.2) g/dL Albumin (3.4-5.0) g/dL Specimen Type Urinvoid Urine Color Light yellow Urine Appearance Cloudy Urine pH 5.0 (5.0-9.0) Ur Specific [place] 1.015 (1.005-1.030) Urine Protein Negative (NEGATIVE) mg/dL Urine Glucose (UA) Negative (NEGATIVE) mg/dL Urine Ketones Negative (NEGATIVE) mg/dL Urine Occult Blood Negative (NEGATIVE) Urine Nitrite Negative (NEGATIVE) Urine Bilirubin Negative (NEGATIVE) Urine Urobilinogen 0.2 (0.2-1.0) E.U./dL Ur Leukocyte Esterase Small H (NEGATIVE) Urine RBC 0-5 /HPF Urine WBC See note /HPF Ur Epithelial Cells Many H /LPF Urine Bacteria Moderate H (NONE TO FEW) /HPF Urine Other See note H Med Orders - Current: Current Medications Acetaminophen (Tylenol) 650 mg PO Q4H PRN PRN Reason: Pain (Mild 1-3)/fever Hydrocodone Bitart/Acetaminophen ([place] 325-5 Mg) 1 tab PO BID PRN PRN Reason: Pain Albuterol/Ipratropium (Duoneb 3.0-0.5 Mg/3 Ml) 3 ml NEB Q4H PRN PRN Reason: Dyspnea Albuterol/Ipratropium (Duoneb 3.0-0.5 Mg/3 Ml) 3 ml NEB Q6HRRT [facility] Last Admin: 01/19/18 09:21 Dose: 3 ml Alprazolam (Xanax) 0.25 mg PO TID [facility] Last Admin: 01/19/18 09:22 Dose: 0.25 mg Aspirin (Aspirin) 81 mg PO DAILY [facility] Last Admin: 01/19/18 09:22 Dose: 81 mg Buspirone HCl (Buspar) 7.5 mg PO TID@0800,1400,2000 [facility] Last Admin: 01/19/18 09:22 Dose: 7.5 mg Famotidine (Pepcid) 10 mg PO BID [facility] Last Admin: 01/19/18 09:27 Dose: 10 mg Guaifenesin/Dextromethorphan (Robitussin Dm) 10 ml PO Q4HR PRN PRN Reason: Cough Hydroxyzine HCl (Atarax) 25 mg PO Q12HR [facility] Last Admin: 01/19/18 09:23 Dose: 25 mg Piperacillin Sod/Tazobactam (Sod 2.25 gm/ Sodium Chloride) 100 mls @ 200 mls/ hr IV Q8H [facility] Last Admin: 01/19/18 09:18 Dose: 200 mls/hr Sodium Chloride (Normal Saline) 1,000 mls @ 150 mls/hr IV ASDIRECTED [facility] Last Admin: 01/19/18 09:16 Dose: 150 mls/hr Insulin Aspart (Novolog) 22 unit SUBCUT TIDAC [facility] Last Admin: 01/19/18 07:32 Dose: 22 units Insulin Aspart (Novolog) 0 unit SUBCUT TID@1000,1400,1900 [facility]; Protocol Last Admin: 01/19/18 09:14 Dose: 3 units Metronidazole (Flagyl) 500 mg PO Q8H [facility] Last Admin: 01/19/18 09:24 Dose: 500 mg Mometasone Furoate/Formoterol Fumar (Dulera 200-5 Mcg) 2 puff IH BIDRT [facility] Last Admin: 01/19/18 09:16 Dose: 2 puff Ondansetron HCl (Zofran) 4 mg IVPUSH Q6H PRN PRN Reason: Nausea/Vomiting Last Admin: 01/19/18 09:19 Dose: 4 mg Pregabalin (Lyrica) 50 mg PO BID@0800,2000 [facility] Last Admin: 01/19/18 09:23 Dose: 50 mg Sodium Chloride (Saline Flush) 10 ml FLUSH ASDIRECTED PRN PRN Reason: Keep Vein Open Last Admin: 01/19/18 09:19 Dose: 10 ml Discontinued Medications Acetaminophen (Tylenol) 650 mg PO Q6HR PRN PRN Reason: Pain Hydrocodone Bitart/Acetaminophen ([place] 325-5 Mg) 1 tab PO Q6H PRN PRN Reason: Pain (moderate 4-6) Hydrocodone Bitart/Acetaminophen ([place] 325-5 Mg) 1 tab PO BID ONE Stop: 01/18/18 20:39 Last Admin: 01/18/18 21:48 Dose: Not Given Acetylcysteine (Mucomyst 20%) 200 mg NEB TIDRT [facility] Last Admin: 01/18/18 21:24 Dose: Not Given Albuterol/Ipratropium (Duoneb 3.0-0.5 Mg/3 Ml) 3 ml NEB ONETIME ONE Stop: 01/18/18 17:19 Last Admin: 01/18/18 17:26 Dose: 3 ml Amlodipine Besylate (Norvasc) 5 mg PO DAILY [facility] Benzonatate (Tessalon Perles) 200 mg PO TID PRN PRN Reason: Cough Buspirone HCl (Buspar) 15 mg PO DAILY [facility] Buspirone HCl (Buspar) 7.5 mg PO BEDTIME [facility] Last Admin: 01/18/18 21:25 Dose: Not Given Fexofenadine HCl (Gracy) 180 mg PO Q12HR PRN PRN Reason: Cough Piperacillin Sod/Tazobactam (Sod 3.375 gm/ Sodium Chloride) 100 mls @ 200 mls/ hr IV Q6H [facility] Last Admin: 01/18/18 19:31 Dose: Not Given Insulin Aspart (Novolog) 15 unit SUBCUT TIDAC [facility] Last Admin: 01/18/18 21:25 Dose: Not Given Insulin Detemir (Levemir) 0 unit SUBCUT BID [facility]; Protocol Last Admin: 01/18/18 21:26 Dose: Not Given Insulin Detemir (Levemir) 35 unit SUBCUT BEDTIME [facility] Last Admin: 01/18/18 21:25 Dose: Not Given Insulin Detemir (Levemir) 60 unit SUBCUT BEDTIME ONE Stop: 01/18/18 20:53 Last Admin: 01/18/18 21:22 Dose: Not Given Insulin Detemir (Levemir) 25 unit SUBCUT ONETIME ONE Stop: 01/18/18 21:20 Last Admin: 01/18/18 21:40 Dose: 25 units Magnesium Oxide (Magnesium Oxide) 400 mg PO DAILY [facility] Mupirocin (Bactroban Oint) 0 gm TOP Q8HR PRN PRN Reason: Rash Non-Formulary Medication (Loperamide Hcl [Imodium A-D]) 4 mg PO ASDIRECTED PRN PRN Reason: Diarrhea Non-Formulary Medication (Ranitidine Hcl [Zantac 75]) 75 mg PO BID [facility] Last Admin: 01/18/18 21:25 Dose: Not Given Trolamine Salicylate (Aspercreme 10%) 85 gm TOP ASDIRECTED PRN PRN Reason: Pain - Exam Quality Assessment: Supplemental Oxygen General: Alert, Oriented HEENT: Pupils Equal, Pupils Reactive, EOMI, Mucous Membr. Moist/[place] Neck: Supple Lungs: Decreased Breath Sounds (On the right versus the left) Cardiovascular: Regular Rate, Regular Rhythm GI/Abdominal Exam: Normal Bowel Sounds, Soft, Non-Tender, No Organomegaly, No Distention, No Abnormal Bruit, No Mass, Pelvis Stable (Female) Exam: Normal External Exam, Normal Speculum Exam, Normal Bimanual Exam Back Exam: Decreased Range of Motion, Other (Chronic back pain) Extremities: Normal Inspection, Normal Range of Motion, Non-Tender, No Pedal Edema, Normal Capillary Refill Skin: Warm, Dry, Intact Neurological: No New Focal Deficit Psy/Mental Status: Alert, Normal Affect, Normal Mood - Problem List & Annotations (1) Dehydration SNOMED Code(s): 51301315 Code(s): E86.0 - DEHYDRATION Status: Acute Current Visit: Yes Annotation/Comment:: C. difficile negative IV fluids given for rehydration (2) Sepsis SNOMED Code(s): 88758763 Code(s): A41.9 - SEPSIS, UNSPECIFIED ORGANISM Status: Acute Current Visit : Yes Annotation/Comment:: White count improving will continue IV antibiotics UA showed leukocytes esterase and bacteria's patient had been treated as an outpatient for UTI (3) C. difficile diarrhea SNOMED Code(s): 6777904014412 Code(s): A04.72 - ENTEROCOLITIS D/T CLOSTRIDIUM DIFFICILE, NOT SPCF RECUR Status: Acute Current Visit: Yes Annotation/Comment:: Prior to admission patient was on antibiotics now has diarrhea foul-smelling will do C. difficile cultures (4) Renal failure (ARF), acute on chronic SNOMED Code(s): 521756861 Code(s): N17.9 - ACUTE KIDNEY FAILURE, UNSPECIFIED; N18.9 - CHRONIC KIDNEY DISEASE, UNSPECIFIED Status: Acute Current Visit: Yes Annotation/Comment: : Creatinine improving 2.1 today BUNs improving (5) Urinary tract infection SNOMED Code(s): 50184302 Code(s): N39.0 - URINARY TRACT INFECTION, SITE NOT SPECIFIED Status: Acute Current Visit: Yes Qualifiers: Urinary tract infection type: acute cystitis Hematuria presence: without hematuria Qualified Code(s): N30.00 - Acute cystitis without hematuria Annotation/Comment:: Patient on antibiotics will continue cultures pending - Problem List Review Problem List Initiated/Reviewed/Updated: Yes - My Orders Last 24 Hours: My Active Orders 01/18/18 16:09 Chest 1V Frontal [CR] Stat Sodium Chloride 0.9% [Saline Flush] 10 ml FLUSH ASDIRECTED PRN 01/18/18 16:10 Oxygen Therapy [RC] PRN Pulse Oximetry [RC] PRN 01/18/18 16:11 Saline Lock Insert [OM.PC] Stat 01/18/18 16:12 EKG Documentation Completion [RC] ASDIRECTED 01/18/18 16:28 CULTURE BLOOD [BC] Stat 01/18/18 17:07 C DIFFICILE TOXIN BY PCR [MREF] Stat 01/18/18 17:18 RT Aerosol Therapy [RC] ASDIRECTED 01/18/18 17:34 Patient Status [ADT] Routine Bedrest Bedside Commode [RC] ASDIRECTED Blood Glucose Check, Bedside [RC] QIDACANDBED Oxygen Therapy [RC] 2300 Urinary Catheter Assessment [RC] ASDIRECTED VTE/DVT Education [RC] PER UNIT ROUTINE Vital Signs [RC] Q4HR Acetaminophen [Tylenol] 650 mg PO Q4H PRN Albuterol/Ipratropium [DuoNeb 3.0-0.5 MG/3 ML] 3 ml NEB Q4H PRN Ondansetron [Zofran] 4 mg IVPUSH Q6H PRN Glucose Management Sub Q Reflex [OM.PC] Click To Edit Resuscitation Status Routine 01/18/18 17:38 Cardiac Monitoring [RC] CONTINUOUS 01/18/18 17:39 Diabetes Education [RC] .PRN 01/18/18 17:45 RT Aerosol Therapy [RC] 02,08,14,20 Dextromethorphan/guaiFENesin [Robitussin DM] 10 ml PO Q4HR PRN 01/18/18 18:00 ALPRAZolam [Xanax] 0.25 mg PO TID Piperacillin/Tazobactam [Zosyn] 2.25 gm Sodium Chloride 0.9% [Normal Saline] 100 ml IV Q8H metroNIDAZOLE [Flagyl] 500 mg PO Q8H 01/18/18 20:00 Albuterol/Ipratropium [DuoNeb 3.0-0.5 MG/3 ML] 3 ml NEB Q6HRRT 01/18/18 20:30 Pregabalin [Lyrica] 50 mg PO BID@0800,2000 01/18/18 21:06 Acetaminophen/HYDROcodone [[place] 325-5 MG] 1 tab PO BID PRN 01/19/18 01:30 Sodium Chloride 0.9% [Normal Saline] 1,000 ml IV ASDIRECTED 01/19/18 07:00 Insulin Aspart [NovoLOG] 22 unit SUBCUT TIDAC 01/19/18 08:00 Communication Order [RC] DAILY Aspirin 81 mg PO DAILY Famotidine [Pepcid] 10 mg PO BID Mometasone/Formoterol [Dulera 200-5 MCG] 2 puff IH BIDRT busPIRone [Buspar] 7.5 mg PO TID@0800,1400,1999 hydrOXYzine HCl [Atarax] 25 mg PO Q12HR 01/19/18 10:00 UA W/MICROSCOPIC [URIN] Stat Insulin Aspart [NovoLOG] See Protocol SUBCUT TID@1000,1400,1900 01/19/18 Breakfast Clear Liquid Diet [DIET] - Plan Plan:: Continue care
[2018-01-19] MEDS: Acetaminophen/HYDROcodone 325-5 MG Tab PO PRN (17:27)
[2018-01-19] MEDS ORDERED: Insulin Detemir 100 Units/ML 3 ML Pen SUBCUT SCH (20:00)
[2018-01-20] MEDS: Acetaminophen/HYDROcodone 325-5 MG Tab PO PRN ×2 (00:13→08:20)
[2018-01-20] MEDS: Sodium Chloride 0.9% 1,000 ML IV SCH (00:39)
[2018-01-20] MEDS: metroNIDAZOLE 500 MG Tab PO SCH ×2 (02:46→10:37)
[2018-01-20] MEDS: Piperacillin/Tazobactam 2.25 GM in Sodium Chloride 0.9% 100 ML IV SCH ×2 (02:46→10:37)
[2018-01-20] MEDS: Albuterol/Ipratropium 3.0-0.5 MG/3 ML Neb Soln NEB SCH ×3 (02:52→14:23)
[2018-01-20] MEDS: Insulin Aspart 100 Units/ML 3 ML Pen SUBCUT SCH ×4 (08:18→14:23)
[2018-01-20] MEDS: Aspirin 81 MG Tab.Chew PO SCH (08:18)
[2018-01-20] MEDS: Pregabalin 25 MG Cap PO SCH (08:19)
[2018-01-20] MEDS: hydrOXYzine HCl 25 MG Tab PO SCH (08:19)
[2018-01-20] MEDS: busPIRone 15 MG Tab PO SCH ×2 (08:19→14:23)
[2018-01-20] MEDS: Formoterol/Mometasone 200-5 MCG 8.8 GM Inhaler IH SCH (08:19)
[2018-01-20] MEDS: ALPRAZolam 0.25 MG Tab PO SCH ×2 (08:20→12:14)
[2018-01-20] MEDS: Famotidine 10 MG Tab PO SCH (08:20)
[2018-01-20] MEDS: Sodium Chloride 0.9% 10 ML Syringe FLUSH PRN (10:38)
--- NOTE | 2018-01-20 11:27 | PCM.DCSUM1 ---
Discharge Summary - Hospital Course Free Text/Narrative:: Ariella is an 82 year old female that was admitted with dehydration, renal failure , diarrhea, and possible sepsis. patient was admitted to the hospital for hydration and antibiotic therapy. Responded well with white count going back to normal on the 2nd day of antibiotics. Renal functions improved. Will DC patient back to shelter. Diagnosis: Stroke: No - Discharge Data Discharge Date: 01/20/18 Discharge Disposition: DC/Tfer to Electrical Assistant [facility], [place] 63 Condition: Good - Discharge Diagnosis/Problem(s) (1) Dehydration SNOMED Code(s): 93843559 ICD Code: E86.0 - DEHYDRATION Status: Acute Current Visit: Yes Problem Details: pending C diff results. IV fluids given for rehydration- patient responded well. Will send patient home on oral Flagyl. (2) Sepsis SNOMED Code(s): 02023409 ICD Code: A41.9 - SEPSIS, UNSPECIFIED ORGANISM Status: Acute Current Visit: Yes Problem Details: White count improving ; will send home on oral antibiotics Qualifiers: Sepsis type: sepsis due to unspecified organism Qualified Code(s): A41.9 - Sepsis, unspecified organism (3) C. difficile diarrhea SNOMED Code(s): 3178778808407 ICD Code: A04.72 - ENTEROCOLITIS D/T CLOSTRIDIUM DIFFICILE, NOT SPCF RECUR Status: Acute Current Visit: Yes Problem Details: Cultures pending on c diff, will send patient on oral flagyl. (4) Renal failure (ARF), acute on chronic SNOMED Code(s): 395843841 ICD Code: N17.9 - ACUTE KIDNEY FAILURE, UNSPECIFIED; N18.9 - CHRONIC KIDNEY DISEASE, UNSPECIFIED Status: Resolved Current Visit: Yes Problem Details: labs improved. Qualifiers: Acute renal failure type: unspecified Chronic kidney disease stage: unspecified stage Qualified Code(s): N17.9 - Acute kidney failure, unspecified ; N18.9 - Chronic kidney disease, unspecified (5) Urinary tract infection SNOMED Code(s): 48894816 ICD Code: N39.0 - URINARY TRACT INFECTION, SITE NOT SPECIFIED Status: Acute Current Visit: Yes Problem Details: Patient on antibiotics will continue cultures pending Qualifiers: Urinary tract infection type: acute cystitis Hematuria presence: without hematuria Qualified Code(s): N30.00 - Acute cystitis without hematuria - Patient Instructions Diet: Usual Diet as Tolerated Diet, Other: Patient to drink 2L at minimum of water a day due to kidney failure. Activity: As Tolerated Showering/Bathing: May Shower Notify Provider of: Fever Other/Special Instructions: Call if any questions or concerns. Follow up with PCP in 7-10 days for post hospitalization follow up. - Discharge Plan Prescriptions/Med Rec: Amoxicillin/Clavulanate K [Augmentin 875-125 MG] 1 tab PO BID #16 tablet metroNIDAZOLE [Flagyl] 500 mg PO Q8H #24 tablet Home Medications: Home Meds Aspirin 81 mg PO DAILY 11/18/15 [History] Lisinopril 10 mg PO DAILY 11/18/15 [History] Pregabalin [Lyrica] 50 mg PO ,11/18/15 [History] ALPRAZolam [Xanax] 0.25 mg PO 08,12,12/19/16 [History] Acetaminophen 650 mg PO Q6HR PRN 12/19/16 [History] Acetaminophen/HYDROcodone [Warriors Mark 325-5 MG] 1 tab PO BID PRN 12/19/16 [History] Albuterol/Ipratropium [DuoNeb 3.0-0.5 MG/3 ML] 3 ml NEB Q6HRRT PRN 12/19/16 [ History] Insulin Aspart [NovoLOG] 22 unit SUBCUT TIDAC 12/19/16 [History] Loperamide HCl [Imodium A-D] 2 mg PO QID PRN 12/19/16 [History] Magnesium Oxide 400 mg PO DAILY 12/19/16 [History] Multivitamin [Multi-Day Vitamins] 1 each PO DAILY 12/19/16 [History] Polyethylene Glycol 3350 [MiraLAX] 17 gm PO DAILY PRN 12/19/16 [History] Ranitidine HCl [Zantac 75] 75 mg PO 08,16 12/19/16 [History] busPIRone HCl [Buspirone HCl] 7.5 mg PO 08,14,12/19/16 [History] guaiFENesin/Dextromethorphan [Guaifenesin Dm Syrup] 10 ml PO Q4HR PRN 12/19/16 [ History] Acetaminophen [Tylenol] 325 mg PO DAILY 01/18/18 [History] Albuterol/Ipratropium [DuoNeb 3.0-0.5 MG/3 ML] 3 ml INH 02,08,14,20 01/18/18 [ History] Budesonide/Formoterol Fumarate [Symbicort 160-4.5 Mcg Inhaler] 2 puff IH ,01/18/18 [History] Insulin Detemir [Levemir] 60 unit SUBCUT BEDTIME 01/18/18 [History] hydrOXYzine HCl [hydrOXYzine] 25 mg PO 01/18/18 [History] Amoxicillin/Clavulanate K [Augmentin 875-125 MG] 1 tab PO BID #16 tablet [Rx] metroNIDAZOLE [Flagyl] 500 mg PO Q8H #24 tablet 01/20/18 [Rx] Patient Handouts: Clostridium Difficile Infection, [id number], Dehydration, Adult, [id number], Urinary Tract Infection, Adult Forms: ED Department Discharge Referrals: PCP,Unknown [Primary Care Provider] - - Discharge Summary/Plan Comment DC Time >30 min.: No - General Info Date of Service: 01/20/18 - Review of Systems General: Reports: No Symptoms HEENT: Reports: No Symptoms Pulmonary: Reports: No Symptoms Cardiovascular: Reports: No Symptoms Gastrointestinal: Reports: Diarrhea Genitourinary: Reports: No Symptoms Musculoskeletal: Reports: No Symptoms Skin: Reports: No Symptoms Neurological: Reports: No Symptoms Psychiatric: Reports: No Symptoms - Patient Data Vitals - Most Recent: Last Vital Signs Temp 99.2 F 01/19/18 19:15 Pulse 93 01/19/18 19:15 Resp 16 01/19/18 19:15 BP 122/37 L 01/19/18 19:15 Pulse Ox 93 L 01/19/18 19:15 Weight - Most Recent: 234 lb 15.992 oz I&O - Last 24 hours: Intake & Output 01/19/18 01/20/18 01/20/18 22:59 06:59 14:59 Intake Total 1540 1663 Balance 1540 1663 Lab Results - Last 24 hrs: Laboratory Results - last 24 hr 01/19/18 01/19/18 01/19/18 Range/Units 11:22 14:41 17:17 WBC (4.0-10.2) K/uL RBC (3.77-5.09) M/uL Hgb (11.7-15.5) g/dL Hct (34.0-46.0) % MCV (84.0-98.0) fL MCH (28.2-33.3) pg MCHC (31.7-36.0) g/dL RDW (11.2-14.1) % Plt Count (150-350) K/uL Neut % (Auto) (45.0-80.0) % Lymph % (Auto) (10.0-50.0) % [place] % (Auto) (2.0-14.0) % Eos % (Auto) (0.0-5.0) % Baso % (Auto) (0.0-2.0) % Neut # (Auto) (1.40-7.00) K/uL Lymph # (Auto) (0.50-3.50) K/uL [place] # (Auto) (0.00-1.00) K/uL Eos # (Auto) (0.00-0.50) K/uL Baso # (Auto) (0.00-0.20) K/uL Sodium (136-145) mmol/L Potassium (3.5-5.1) mmol/L Chloride (98-107) mmol/L Carbon Dioxide (21.0-32.0) mmol/L BUN (7-18) mg/dL Creatinine (0.51-1.17) mg/dL Est Cr Clr Drug Dosing mL/min Estimated GFR (MDRD) mL/min Glucose (74-106) mg/dL POC Glucose 215 H 238 H 104 (65-110) mg/dl Calcium (8.5-10.1) mg/dL 01/19/18 01/19/18 01/20/18 Range/Units 19:19 21:34 07:27 WBC 9.2 (4.0-10.2) K/uL RBC 3.54 L (3.77-5.09) M/uL Hgb 11.2 L D (11.7-15.5) g/dL Hct 35.2 (34.0-46.0) % MCV 99.4 H (84.0-98.0) fL MCH 31.6 (28.2-33.3) pg MCHC 31.8 (31.7-36.0) g/dL RDW 13.3 (11.2-14.1) % Plt Count 188 (150-350) K/uL Neut % (Auto) 77.9 (45.0-80.0) % Lymph % (Auto) 10.9 (10.0-50.0) % [place] % (Auto) 10.1 (2.0-14.0) % Eos % (Auto) 1.0 (0.0-5.0) % Baso % (Auto) 0.1 (0.0-2.0) % Neut # (Auto) 7.17 H (1.40-7.00) K/uL Lymph # (Auto) 1.00 (0.50-3.50) K/uL [place] # (Auto) 0.93 (0.00-1.00) K/uL Eos # (Auto) 0.09 (0.00-0.50) K/uL Baso # (Auto) 0.01 (0.00-0.20) K/uL Sodium (136-145) mmol/L Potassium (3.5-5.1) mmol/L Chloride (98-107) mmol/L Carbon Dioxide (21.0-32.0) mmol/L BUN (7-18) mg/dL Creatinine (0.51-1.17) mg/dL Est Cr Clr Drug Dosing mL/min Estimated GFR (MDRD) mL/min Glucose (74-106) mg/dL POC Glucose 192 H 171 H (65-110) mg/dl Calcium (8.5-10.1) mg/dL 01/20/18 01/20/18 Range/Units 07:27 09:46 WBC (4.0-10.2) K/uL RBC (3.77-5.09) M/uL Hgb (11.7-15.5) g/dL Hct (34.0-46.0) % MCV (84.0-98.0) fL MCH (28.2-33.3) pg MCHC (31.7-36.0) g/dL RDW (11.2-14.1) % Plt Count (150-350) K/uL Neut % (Auto) (45.0-80.0) % Lymph % (Auto) (10.0-50.0) % [place] % (Auto) (2.0-14.0) % Eos % (Auto) (0.0-5.0) % Baso % (Auto) (0.0-2.0) % Neut # (Auto) (1.40-7.00) K/uL Lymph # (Auto) (0.50-3.50) K/uL [place] # (Auto) (0.00-1.00) K/uL Eos # (Auto) (0.00-0.50) K/uL Baso # (Auto) (0.00-0.20) K/uL Sodium 137 (136-145) mmol/L Potassium 4.2 (3.5-5.1) mmol/L Chloride 108 H (98-107) mmol/L Carbon Dioxide 18.1 L (21.0-32.0) mmol/L BUN 31 H D (7-18) mg/dL Creatinine 1.11 (0.51-1.17) mg/dL Est Cr Clr Drug Dosing 37.90 mL/min Estimated GFR (MDRD) 47 mL/min Glucose 208 H (74-106) mg/dL POC Glucose 192 H (65-110) mg/dl Calcium 7.7 L (8.5-10.1) mg/dL JESÚS Results - Last 24 hrs: Microbiology 01/18/18 16:28 Aerobic Blood Culture - Preliminary Blood NO GROWTH AFTER 1 DAY Anaerobic Blood Culture - Preliminary NO GROWTH AFTER 1 DAY Med Orders - Current: Current Medications Acetaminophen (Tylenol) 650 mg PO Q4H PRN PRN Reason: Pain (Mild 1-3)/fever Hydrocodone Bitart/Acetaminophen (Warriors [place] 325-5 Mg) 1 tab PO BID PRN PRN Reason: Pain Last Admin: 01/20/18 08:20 Dose: 1 tab Albuterol/Ipratropium (Duoneb 3.0-0.5 Mg/3 Ml) 3 ml NEB Q4H PRN PRN Reason: Dyspnea Albuterol/Ipratropium (Duoneb 3.0-0.5 Mg/3 Ml) 3 ml NEB Q6HRRT EVANGELINA Last Admin: 01/20/18 08:19 Dose: 3 ml Alprazolam (Xanax) 0.25 mg PO TID EVANGELINA Last Admin: 01/20/18 08:20 Dose: 0.25 mg Aspirin (Aspirin) 81 mg PO DAILY [facility] Last Admin: 01/20/18 08:18 Dose: 81 mg Buspirone HCl (Buspar) 7.5 mg PO TID@0800,1400,2000 [facility] Last Admin: 01/20/18 08:19 Dose: 7.5 mg Famotidine (Pepcid) 10 mg PO BID [facility] Last Admin: 01/20/18 08:20 Dose: 10 mg Guaifenesin/Dextromethorphan (Robitussin Dm) 10 ml PO Q4HR PRN PRN Reason: Cough Hydroxyzine HCl (Atarax) 25 mg PO Q12HR [facility] Last Admin: 01/20/18 08:19 Dose: 25 mg Piperacillin Sod/Tazobactam (Sod 2.25 gm/ Sodium Chloride) 100 mls @ 200 mls/ hr IV Q8H [facility] Last Admin: 01/20/18 10:37 Dose: 200 mls/hr Insulin Aspart (Novolog) 22 unit SUBCUT TIDAC [facility] Last Admin: 01/20/18 08:18 Dose: 22 units Insulin Aspart (Novolog) 0 unit SUBCUT TID@1000,1400,1900 [facility]; Protocol Last Admin: 01/20/18 10:36 Dose: 1 units Insulin Detemir (Levemir) 30 unit SUBCUT DAILY@1999 [facility] Last Admin: 01/19/18 19:55 Dose: 30 unit Metronidazole (Flagyl) 500 mg PO Q8H [facility] Last Admin: 01/20/18 10:37 Dose: 500 mg Mometasone Furoate/Formoterol Fumar (Dulera 200-5 Mcg) 2 puff IH BIDRT [facility] Last Admin: 01/20/18 08:19 Dose: 2 puff Ondansetron HCl (Zofran) 4 mg IVPUSH Q6H PRN PRN Reason: Nausea/Vomiting Last Admin: 01/19/18 09:19 Dose: 4 mg Pregabalin (Lyrica) 50 mg PO BID@0800,1999 [facility] Last Admin: 01/20/18 08:19 Dose: 50 mg Sodium Chloride (Saline Flush) 10 ml FLUSH ASDIRECTED PRN PRN Reason: Keep Vein Open Last Admin: 01/20/18 10:38 Dose: 10 ml Discontinued Medications Acetaminophen (Tylenol) 650 mg PO Q6HR PRN PRN Reason: Pain Hydrocodone Bitart/Acetaminophen (Warriors Mark 325-5 Mg) 1 tab PO Q6H PRN PRN Reason: Pain (moderate 4-6) Hydrocodone Bitart/Acetaminophen (Warriors Mark 325-5 Mg) 1 tab PO BID ONE Stop: 01/18/18 20:39 Last Admin: 01/18/18 21:48 Dose: Not Given Acetylcysteine (Mucomyst 20%) 200 mg NEB TIDRT [facility] Last Admin: 01/18/18 21:24 Dose: Not Given Albuterol/Ipratropium (Duoneb 3.0-0.5 Mg/3 Ml) 3 ml NEB ONETIME ONE Stop: 01/18/18 17:19 Last Admin: 01/18/18 17:26 Dose: 3 ml Amlodipine Besylate (Norvasc) 5 mg PO DAILY [facility] Benzonatate (Tessalon Perles) 200 mg PO TID PRN PRN Reason: Cough Buspirone HCl (Buspar) 15 mg PO DAILY [facility] Buspirone HCl (Buspar) 7.5 mg PO BEDTIME [facility] Last Admin: 01/18/18 21:25 Dose: Not Given Fexofenadine HCl (Gracy) 180 mg PO Q12HR PRN PRN Reason: Cough Piperacillin Sod/Tazobactam (Sod 3.375 gm/ Sodium Chloride) 100 mls @ 200 mls/ hr IV Q6H [facility] Last Admin: 01/18/18 19:31 Dose: Not Given Sodium Chloride (Normal Saline) 1,000 mls @ 150 mls/hr IV ASDIRECTED [facility] Last Admin: 01/20/18 00:39 Dose: 150 mls/hr Sodium Chloride (Normal Saline) 1,000 mls @ 150 mls/hr IV ONETIME ONE Stop: 01/19/18 00:04 Last Admin: 01/18/18 18:10 Dose: 150 mls/hr Insulin Aspart (Novolog) 15 unit SUBCUT TIDAC [facility] Last Admin: 01/18/18 21:25 Dose: Not Given Insulin Detemir (Levemir) 0 unit SUBCUT BID [facility]; Protocol Last Admin: 01/18/18 21:26 Dose: Not Given Insulin Detemir (Levemir) 35 unit SUBCUT BEDTIME [facility] Last Admin: 01/18/18 21:25 Dose: Not Given Insulin Detemir (Levemir) 60 unit SUBCUT BEDTIME ONE Stop: 01/18/18 20:53 Last Admin: 01/18/18 21:22 Dose: Not Given Insulin Detemir (Levemir) 25 unit SUBCUT ONETIME ONE Stop: 01/18/18 21:20 Last Admin: 01/18/18 21:40 Dose: 25 units Magnesium Oxide (Magnesium Oxide) 400 mg PO DAILY [facility] Mupirocin (Bactroban Oint) 0 gm TOP Q8HR PRN PRN Reason: Rash Non-Formulary Medication (Loperamide Hcl [Imodium A-D]) 4 mg PO ASDIRECTED PRN PRN Reason: Diarrhea Non-Formulary Medication (Ranitidine Hcl [Zantac 75]) 75 mg PO BID [facility] Last Admin: 01/18/18 21:25 Dose: Not Given Trolamine Salicylate (Aspercreme 10%) 85 gm TOP ASDIRECTED PRN PRN Reason: Pain - Exam General: Reports: Alert, Oriented HEENT: Reports: Pupils Equal, Pupils Reactive, EOMI, Mucous Membr. Moist/[place] Neck: Reports: Supple Lungs: Reports: Clear to Auscultation, Normal Respiratory Effort Cardiovascular: Reports: Regular Rate, Regular Rhythm GI/Abdominal Exam: Normal Bowel Sounds, Soft, Non-Tender, No Organomegaly, No Distention, No Abnormal Bruit, No Mass, Pelvis Stable (Female) Exam: Deferred Rectal (Female) Exam: Deferred Back Exam: Reports: Normal Inspection, Full Range of Motion Extremities: Normal Inspection, Normal Range of Motion, Non-Tender, No Pedal Edema, Normal Capillary Refill Skin: Reports: Warm, Dry, Intact Neurological: Reports: No New Focal Deficit Psy/Mental Status: Reports: Alert, Normal Affect, Normal Mood
[2018-01-20 12:23] VITALS: BP 123/42
== END 2018-01-20 15:00 | DRG 872 ==
LOC: LL.ED 16:05 → LL.MS 17:24
PROVIDERS: ADMIT Family Medicine; ATTEND Family Medicine
DX: A41.9 Sepsis, unspecified organism (principal); A04.72 Enterocolitis due to Clostridium difficile, not specified as recurrent; N28.9 Disorder of kidney and ureter, unspecified; N39.0 Urinary tract infection, site not specified; N17.9 Acute kidney failure, unspecified; I10 Essential (primary) hypertension; I48.91 Unspecified atrial fibrillation; I73.9 Peripheral vascular disease, unspecified; K21.9 Gastro-esophageal reflux disease without esophagitis; K59.09 Other constipation; Z88.0 Allergy status to penicillin; Z88.2 Allergy status to sulfonamides; R65.20 Severe sepsis without septic shock; E11.40 Type 2 diabetes mellitus with diabetic neuropathy, unspecified; E86.0 Dehydration; N19 Unspecified kidney failure; E11.22 Type 2 diabetes mellitus with diabetic chronic kidney disease; I12.9 Hypertensive chronic kidney disease with stage 1 through stage 4 chronic kidney disease, or unspecified chronic kidney disease; N18.9 Chronic kidney disease, unspecified; G89.29 Other chronic pain; M54.9 Dorsalgia, unspecified; Z79.4 Long term (current) use of insulin; Z79.82 Long term (current) use of aspirin; Z79.899 Other long term (current) drug therapy
CPT/HCPCS: 36415; 51701; 71045; 80048; 80053; 81001; 82803; 82962; 83605; 83735; 83880; 84484; 85025; 87040; 87493; 93005; 94640; 94761; 99285; A9270-GY; J1815-GY; J2405; J2543; J7030; J7050

== ENCOUNTER 2018-12-30 18:33 | Inpatient (IN) | payer MEDICARE, OTHER, MEDICAID ==
[2018-12-30] MEDS ORDERED: Budesonide 0.5 MG/2 ML Neb Susp NEB ONE (18:40)
[2018-12-30] MEDS ORDERED: Albuterol/Ipratropium 3.0-0.5 MG/3 ML Neb Soln NEB ONE (18:40)
--- NOTE | 2018-12-30 18:40 | EDM.PDOC ---
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 KIDNEY AND URETER, UNSPECIFIED Status: Chronic Priority: Medium Current Visit: No Annotation/Comment:: Observe her Diabetic nephropathy closely especially in light of IV Lasix therapy. (12) Cellulitis SNOMED Code(s): 365360654 Code(s): L03.90 - CELLULITIS, UNSPECIFIED Status: Acute Priority: High Current Visit: Yes Onset Date: ~12/30/18 Annotation/Comment:: IV antibiotic therapy as above. No drainage for collection of specimen for culture and sensitivity. Qualifiers: Site of cellulitis: extremity Site of cellulitis of extremity: lower extremity Laterality: left Qualified Code(s): L03.116 - Cellulitis of left lower limb (13) Hypoalbuminemia SNOMED Code(s): 610630261 Code(s): E88.09 - OTH DISORDERS OF PLASMA-PROTEIN METABOLISM, NEC Status: Acute Priority: Medium Current Visit: Yes Annotation/Comment:: Consider high-protein Glucerna supplements as snacks (14) Need for comfort care SNOMED Code(s): 217696222, 806199254 Code(s): API1400 - Status: Acute Priority: High Current Visit: Yes Annotation/Comment:: Prognosis Guarded. Continue comfort care. (15) Hypomagnesemia SNOMED Code(s): 420733763 Code(s): E83.42 - HYPOMAGNESEMIA Status: Chronic Priority: Medium Current Visit: Yes Annotation/Comment:: Magnesium oxide supplementation will be increased. - Problem List Review Problem List Initiated/Reviewed/Updated: Yes - My Orders Last 24 Hours: My Active Orders 12/30/18 18:40 Cardiac Monitoring [RC] CONTINUOUS Communication Order [RC] ROUTINE Oxygen Therapy, ED [RC] CONTINUOUS Pulse Oximetry [RC] CONTINUOUS Up With Assistance [RC] ASDIRECTED Chest 1V Frontal [CR] Stat CULTURE SPUTUM + SMEAR [RM] Urgent CULTURE URINE [RM] Routine UA W/MICROSCOPIC [URIN] Stat Sodium Chloride 0.9% [Saline Flush] 10 ml FLUSH ASDIRECTED PRN Blood Culture x2 Reflex Set [OM.PC] Stat Obtain Past Medical Record [OM.PC] Stat Peripheral IV Insertion Adult [OM.PC] Stat Resuscitation Status Routine 12/30/18 18:41 EKG Documentation Completion [RC] ASDIRECTED Peripheral IV Care [RC] . DIRECTED 12/30/18 19:10 CULTURE BLOOD [BC] Stat 12/30/18 19:20 CULTURE BLOOD [BC] Stat 12/30/18 20:08 Chest PE [Ang Chest] [CT] Stat 12/30/18 Breakfast Nothing Per Oral Diet [DIET] - Assessment/Plan Admission H&P: Please use this note as an admission H&P Last 24 Hours: My Active Orders 12/30/18 18:40 Cardiac Monitoring [RC] CONTINUOUS Communication Order [RC] ROUTINE Oxygen Therapy, ED [RC] CONTINUOUS Pulse Oximetry [RC] CONTINUOUS Up With Assistance [RC] ASDIRECTED Chest 1V Frontal [CR] Stat CULTURE SPUTUM + SMEAR [RM] Urgent CULTURE URINE [RM] Routine UA W/MICROSCOPIC [URIN] Stat Sodium Chloride 0.9% [Saline Flush] 10 ml FLUSH ASDIRECTED PRN Blood Culture x2 Reflex Set [OM.PC] Stat Obtain Past Medical Record [OM.PC] Stat Peripheral IV Insertion Adult [OM.PC] Stat Resuscitation Status Routine 12/30/18 18:41 EKG Documentation Completion [RC] ASDIRECTED Peripheral IV Care [RC] . DIRECTED 12/30/18 19:10 CULTURE BLOOD [BC] Stat 12/30/18 19:20 CULTURE BLOOD [BC] Stat 12/30/18 20:08 Chest PE [Ang Chest] [CT] Stat 12/30/18 Breakfast Nothing Per Oral Diet [DIET] Assessment:: As above Plan: As above. Extensive precautions were given to the patient, who is in agreement with the treatment plan. The patient will require about 3-4 days of inpatient/ acute care secondary to multiple health problems as above. Tiffanie holden physician assumes care in the a.m.
[2018-12-30 19:51] LABS: CHLORIDE,CL 101 mmol/L (98-107); SODIUM,NA 136 mmol/L (136-145)
[2018-12-30] MEDS ORDERED: cefTRIAXone 1 GM in Sodium Chloride 0.9% 100 ML IV ONE (19:51)
[2018-12-30] MEDS: Sodium Chloride 0.9% 10 ML Syringe FLUSH PRN (20:03)
[2018-12-30] MEDS ORDERED: Iopamidol 755 Mg/ML 100 ML Bottle IVPUSH ONE (20:09)
[2018-12-30] MEDS ORDERED: METHYL SALICYLATE TP PRN (21:17)
[2018-12-30] MEDS ORDERED: MENTHOL TP PRN (21:17)
[2018-12-30] MEDS ORDERED: Aluminum Hydroxide/Magnesium Hydroxide/Simethicone Susp 30 ML Cup PO PRN (21:17)
[2018-12-30] MEDS ORDERED: Polyethylene Glycol 3350 Powder 17 GM Packet PO PRN (21:17)
[2018-12-30] MEDS ORDERED: Loperamide 2 MG Tab PO PRN (21:17)
[2018-12-30] MEDS ORDERED: Albuterol 0.083% 2.5 MG/3 ML Neb Soln NEB PRN (21:18)
[2018-12-30] MEDS ORDERED: Albuterol/Ipratropium 3.0-0.5 MG/3 ML Neb Soln NEB PRN (21:18)
[2018-12-30] MEDS: Dextromethorphan/guaiFENesin 600-30 MG Tab.ER PO SCH (22:35)
[2018-12-30] MEDS: Magnesium Oxide 400 MG Tab PO SCH (22:35)
[2018-12-30] MEDS: Insulin Glarg,Human.Rec.Analog 100 UNIT/ML ML SUBCUT SCH (22:36)
[2018-12-30] MEDS: Levofloxacin/Dextrose 5%-Water 500 MG in Premix Bag 1 BAG IV SCH (22:36)
[2018-12-30] MEDS: Sodium Chloride 0.9% 10 ML Syringe FLUSH SCH (22:38)
[2018-12-30] MEDS ORDERED: Enoxaparin 100 MG/1 ML Syringe SUBCUT SCH (23:30)
[2018-12-31] MEDS: Potassium Chloride 20 MEQ Tab.ER PO SCH ×3 (00:04→17:44)
[2018-12-31] MEDS: Furosemide 40 MG/4 ML VIAL IVPUSH SCH ×2 (00:05→11:49)
[2018-12-31] MEDS: Acetaminophen 325 MG Tab PO PRN ×3 (00:18→19:38)
[2018-12-31] MEDS: Albuterol/Ipratropium 3.0-0.5 MG/3 ML Neb Soln NEB SCH ×4 (01:32→19:15)
[2018-12-31 07:40] LABS: HEMOGLOBIN A1C 7.2 % (4.3-5.7)
[2018-12-31] MEDS: Insulin Lispro 100 Units/ML 3 ML Vial SUBCUT SCH ×7 (08:01→20:47)
[2018-12-31] MEDS: cefTRIAXone 1 GM in Sodium Chloride 0.9% 100 ML IV SCH ×2 (08:06→19:14)
[2018-12-31] MEDS: Sodium Chloride 0.9% 10 ML Syringe FLUSH PRN ×2 (08:08→19:14)
[2018-12-31] MEDS: Omeprazole 20 MG Cap.CR PO SCH (08:16)
[2018-12-31] MEDS: busPIRone 15 MG Tab PO SCH ×3 (08:16→19:15)
[2018-12-31] MEDS: Mirabegron 25 MG Tab Extended Release PO SCH (08:17)
[2018-12-31] MEDS: ALPRAZolam 0.25 MG Tab PO SCH ×3 (08:17→16:16)
[2018-12-31] MEDS: Ascorbic Acid 500 MG Tab PO SCH (08:17)
[2018-12-31] MEDS: Lisinopril 10 MG Tab PO SCH (08:18)
[2018-12-31] MEDS: Magnesium Oxide 400 MG Tab PO SCH ×2 (08:18→17:42)
[2018-12-31] MEDS: Multivitamin Tab PO SCH (08:18)
[2018-12-31] MEDS: Ferrous Sulfate 325 MG Tab PO SCH (08:18)
[2018-12-31] MEDS: Pregabalin 25 MG Cap PO SCH ×2 (08:20→19:15)
[2018-12-31] MEDS: Dextromethorphan/guaiFENesin 600-30 MG Tab.ER PO SCH ×2 (08:20→17:42)
[2018-12-31] MEDS: Budesonide 0.5 MG/2 ML Neb Susp NEB SCH ×2 (08:29→19:16)
[2018-12-31] MEDS: Sodium Chloride 0.9% 10 ML Syringe FLUSH SCH ×2 (09:29→21:30)
[2018-12-31] MEDS: Amitriptyline 25 MG Tab PO SCH (19:15)
[2018-12-31] MEDS: hydrOXYzine HCl 25 MG Tab PO SCH (19:15)
[2018-12-31] MEDS: Insulin Glarg,Human.Rec.Analog 100 UNIT/ML ML SUBCUT SCH (20:14)
[2018-12-31] MEDS: Levofloxacin/Dextrose 5%-Water 500 MG in Premix Bag 1 BAG IV SCH (21:30)
[2018-12-31] MEDS: Enoxaparin 100 MG/1 ML Syringe SUBCUT SCH (22:36)
[2019-01-01] MEDS: Acetaminophen 325 MG Tab PO PRN (00:45)
[2019-01-01] MEDS: Insulin Lispro 100 Units/ML 3 ML Vial SUBCUT SCH ×7 (08:39→20:53)
[2019-01-01] MEDS: Sodium Chloride 0.9% 10 ML Syringe FLUSH PRN ×2 (08:42→14:35)
[2019-01-01] MEDS: cefTRIAXone 1 GM in Sodium Chloride 0.9% 100 ML IV SCH ×2 (08:42→19:16)
[2019-01-01] MEDS: Ferrous Sulfate 325 MG Tab PO SCH (08:51)
[2019-01-01] MEDS: Magnesium Oxide 400 MG Tab PO SCH ×2 (08:51→17:12)
[2019-01-01] MEDS: Omeprazole 20 MG Cap.CR PO SCH (08:51)
[2019-01-01] MEDS: Mirabegron 25 MG Tab Extended Release PO SCH (08:51)
[2019-01-01] MEDS: Lisinopril 10 MG Tab PO SCH (08:52)
[2019-01-01] MEDS: Ascorbic Acid 500 MG Tab PO SCH (08:52)
[2019-01-01] MEDS: Multivitamin Tab PO SCH (08:53)
[2019-01-01] MEDS: Budesonide 0.5 MG/2 ML Neb Susp NEB SCH ×2 (08:53→19:14)
[2019-01-01] MEDS: busPIRone 15 MG Tab PO SCH ×3 (08:54→19:14)
[2019-01-01] MEDS: Pregabalin 25 MG Cap PO SCH ×2 (08:54→19:15)
[2019-01-01] MEDS: ALPRAZolam 0.25 MG Tab PO SCH ×3 (08:55→16:01)
[2019-01-01] MEDS: Dextromethorphan/guaiFENesin 600-30 MG Tab.ER PO SCH ×2 (08:55→17:12)
[2019-01-01] MEDS: Albuterol/Ipratropium 3.0-0.5 MG/3 ML Neb Soln NEB SCH ×4 (08:55→19:14)
[2019-01-01] MEDS: Furosemide 40 MG/4 ML VIAL IVPUSH SCH ×2 (08:56→14:35)
[2019-01-01] MEDS: Sodium Chloride 0.9% 10 ML Syringe FLUSH SCH ×3 (09:12→20:56)
--- NOTE | 2019-01-01 09:53 | PCM.SN ---
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
--- NOTE | 2019-01-01 10:12 | PCM.PN ---
- General Info Date of Service: 01/01/19 Admission Dx/Problem (Free Text): Patient is 83-year-old was admitted with hypoxemia hypotension diagnosed with pneumonia has been treated for 2 days now shows white count dropping. . Functional Status: Reports: Pain Controlled - Review of Systems General: Reports: No Symptoms HEENT: Reports: No Symptoms Pulmonary: Reports: No Symptoms Cardiovascular: Reports: No Symptoms Gastrointestinal: Reports: No Symptoms Genitourinary: Reports: No Symptoms Musculoskeletal: Reports: No Symptoms Skin: Reports: No Symptoms Neurological: Reports: No Symptoms Psychiatric: Reports: No Symptoms - Patient Data Vitals - Most Recent: Last Vital Signs Temp 98.6 F 01/01/19 08:00 Pulse 88 01/01/19 08:00 Resp 20 01/01/19 08:00 BP 119/31 L 01/01/19 08:52 Pulse Ox 94 L 01/01/19 08:00 Weight - Most Recent: 215 lb 8 oz I&O - Last 24 Hours: Intake & Output 12/31/18 01/01/19 01/01/19 22:59 06:59 14:59 Intake Total 2390 420 Balance 2390 420 Lab Results Last 24 Hours: Laboratory Results - last 24 hr 12/30/18 12/31/18 12/31/18 Range/Units 21:00 11:34 17:21 WBC (4.0-10.2) K/uL RBC (3.77-5.09) M/uL Hgb (11.7-15.5) g/dL Hct (34.0-46.0) % MCV (84.0-98.0) fL MCH (28.2-33.3) pg MCHC (31.7-36.0) g/dL RDW (11.2-14.1) % Plt Count (150-350) K/uL Neut % (Auto) (45.0-80.0) % Lymph % (Auto) (10.0-50.0) % [place] % (Auto) (2.0-14.0) % Eos % (Auto) (0.0-5.0) % Baso % (Auto) (0.0-2.0) % Neut # (Auto) (1.40-7.00) K/uL Lymph # (Auto) (0.50-3.50) K/uL [place] # (Auto) (0.00-1.00) K/uL Eos # (Auto) (0.00-0.50) K/uL Baso # (Auto) (0.00-0.20) K/uL Sodium (136-145) mmol/L Potassium (3.5-5.1) mmol/L Chloride (98-107) mmol/L Carbon Dioxide (21.0-32.0) mmol/L BUN (7-18) mg/dL Creatinine (0.51-1.17) mg/dL Est Cr Clr Drug Dosing mL/min Estimated GFR (MDRD) mL/min Glucose (74-106) mg/dL POC Glucose 188 H 80 (65-110) mg/dl Calcium (8.5-10.1) mg/dL Total Bilirubin (0.2-1.0) mg/dL AST (15-37) U/L ALT (12-78) U/L Alkaline Phosphatase (46-116) IU/L Creatine Kinase (26-308) U/L Creatine Kinase Index (0.0-2.5) % CK-MB (CK-2) (0.00-3.60) ng/mL NT-Pro-B Natriuret Pep (0-125) pg/mL Total Protein (6.4-8.2) g/dL Albumin (3.4-5.0) g/dL Specimen Type [place] Urine Color Light yellow Urine Appearance Slightly cloudy Urine pH 7.5 (5.0-9.0) Ur Specific [place] 1.015 (1.005-1.030) Urine Protein 30 H (NEGATIVE) mg/dL Urine Glucose (UA) Negative (NEGATIVE) mg/dL Urine Ketones Negative (NEGATIVE) mg/dL Urine Occult Blood Small H (NEGATIVE) Urine Nitrite Negative (NEGATIVE) Urine Bilirubin Negative (NEGATIVE) Urine Urobilinogen 0.2 (0.2-1.0) E.U./dL Ur Leukocyte Esterase Small H (NEGATIVE) Urine RBC Toll Transmission Worker Urine WBC Toll Transmission Worker Ur Epithelial Cells Toll Transmission Worker Urine Bacteria Toll Transmission Worker 12/31/18 01/01/19 01/01/19 Range/Units 20:12 08:21 09:05 WBC 8.6 (4.0-10.2) K/uL RBC 3.57 L (3.77-5.09) M/uL Hgb 12.0 (11.7-15.5) g/dL Hct 37.0 (34.0-46.0) % MCV 103.6 H (84.0-98.0) fL MCH 33.6 H (28.2-33.3) pg MCHC 32.4 (31.7-36.0) g/dL RDW 13.3 (11.2-14.1) % Plt Count 132 L (150-350) K/uL Neut % (Auto) 71.8 (45.0-80.0) % Lymph % (Auto) 12.9 (10.0-50.0) % [place] % (Auto) 13.8 (2.0-14.0) % Eos % (Auto) 1.3 (0.0-5.0) % Baso % (Auto) 0.2 (0.0-2.0) % Neut # (Auto) 6.16 (1.40-7.00) K/uL Lymph # (Auto) 1.11 (0.50-3.50) K/uL [place] # (Auto) 1.18 H (0.00-1.00) K/uL Eos # (Auto) 0.11 (0.00-0.50) K/uL Baso # (Auto) 0.02 (0.00-0.20) K/uL Sodium (136-145) mmol/L Potassium (3.5-5.1) mmol/L Chloride (98-107) mmol/L Carbon Dioxide (21.0-32.0) mmol/L BUN (7-18) mg/dL Creatinine (0.51-1.17) mg/dL Est Cr Clr Drug Dosing mL/min Estimated GFR (MDRD) mL/min Glucose (74-106) mg/dL POC Glucose 118 H 189 H (65-110) mg/dl Calcium (8.5-10.1) mg/dL Total Bilirubin (0.2-1.0) mg/dL AST (15-37) U/L ALT (12-78) U/L Alkaline Phosphatase (46-116) IU/L Creatine Kinase (26-308) U/L Creatine Kinase Index (0.0-2.5) % CK-MB (CK-2) (0.00-3.60) ng/mL NT-Pro-B Natriuret Pep (0-125) pg/mL Total Protein (6.4-8.2) g/dL Albumin (3.4-5.0) g/dL Specimen Type Urine Color Urine Appearance Urine pH (5.0-9.0) Ur Specific [place] (1.005-1.030) Urine Protein (NEGATIVE) mg/dL Urine Glucose (UA) (NEGATIVE) mg/dL Urine Ketones (NEGATIVE) mg/dL Urine Occult Blood (NEGATIVE) Urine Nitrite (NEGATIVE) Urine Bilirubin (NEGATIVE) Urine Urobilinogen (0.2-1.0) E.U./dL Ur Leukocyte Esterase (NEGATIVE) Urine RBC Urine WBC Ur Epithelial Cells Urine Bacteria 01/01/19 Range/Units 09:35 WBC (4.0-10.2) K/uL RBC (3.77-5.09) M/uL Hgb (11.7-15.5) g/dL Hct (34.0-46.0) % MCV (84.0-98.0) fL MCH (28.2-33.3) pg MCHC (31.7-36.0) g/dL RDW (11.2-14.1) % Plt Count (150-350) K/uL Neut % (Auto) (45.0-80.0) % Lymph % (Auto) (10.0-50.0) % [place] % (Auto) (2.0-14.0) % Eos % (Auto) (0.0-5.0) % Baso % (Auto) (0.0-2.0) % Neut # (Auto) (1.40-7.00) K/uL Lymph # (Auto) (0.50-3.50) K/uL [place] # (Auto) (0.00-1.00) K/uL Eos # (Auto) (0.00-0.50) K/uL Baso # (Auto) (0.00-0.20) K/uL Sodium 131 L (136-145) mmol/L Potassium 4.9 (3.5-5.1) mmol/L Chloride 96 L (98-107) mmol/L Carbon Dioxide 21.3 (21.0-32.0) mmol/L BUN 35 H (7-18) mg/dL Creatinine 2.41 H (0.51-1.17) mg/dL Est Cr Clr Drug Dosing 17.20 mL/min Estimated GFR (MDRD) 19 mL/min Glucose 191 H (74-106) mg/dL POC Glucose (65-110) mg/dl Calcium 8.4 L (8.5-10.1) mg/dL Total Bilirubin 0.3 (0.2-1.0) mg/dL AST 23 (15-37) U/L ALT 19 (12-78) U/L Alkaline Phosphatase 94 (46-116) IU/L Creatine Kinase 164 (26-308) U/L Creatine Kinase Index 0.4 (0.0-2.5) % CK-MB (CK-2) 0.60 (0.00-3.60) ng/mL NT-Pro-B Natriuret Pep 513 H (0-125) pg/mL Total Protein 7.8 (6.4-8.2) g/dL Albumin 2.5 L (3.4-5.0) g/dL Specimen Type Urine Color Urine Appearance Urine pH (5.0-9.0) Ur Specific [place] (1.005-1.030) Urine Protein (NEGATIVE) mg/dL Urine Glucose (UA) (NEGATIVE) mg/dL Urine Ketones (NEGATIVE) mg/dL Urine Occult Blood (NEGATIVE) Urine Nitrite (NEGATIVE) Urine Bilirubin (NEGATIVE) Urine Urobilinogen (0.2-1.0) E.U./dL Ur Leukocyte Esterase (NEGATIVE) Urine RBC Urine WBC Ur Epithelial Cells Urine Bacteria [place] Results Last 24 Hours: Microbiology 12/30/18 21:00 Urine Culture - Final Urine, Quick Cath (In-Out) Escherichia Coli 12/30/18 19:20 Aerobic Blood Culture - Preliminary Blood - Venous - Lab Draw NO GROWTH AFTER 1 DAY Anaerobic Blood Culture - Preliminary NO GROWTH AFTER 1 DAY 12/30/18 19:10 Aerobic Blood Culture - Preliminary Blood - Venous NO GROWTH AFTER 1 DAY Anaerobic Blood Culture - Preliminary NO GROWTH AFTER 1 DAY Med Orders - Current: Current Medications Acetaminophen (Tylenol) 650 mg PO Q4H PRN PRN Reason: Pain/Fever Last Admin: 01/01/19 00:45 Dose: 650 mg Al Hydroxide/Mg Hydroxide (Mag-Al Plus) 5 ml PO Q4H PRN PRN Reason: gi distress Albuterol (Proventil Neb Soln) 2.5 mg NEB Q2H PRN PRN Reason: Dyspnea Albuterol/Ipratropium (Duoneb 3.0-0.5 Mg/3 Ml) 3 ml NEB Q4HRRT PRN PRN Reason: Dyspnea Last Admin: 12/31/18 00:19 Dose: 3 ml Albuterol/Ipratropium (Duoneb 3.0-0.5 Mg/3 Ml) 3 ml NEB QID [facility] Last Admin: 01/01/19 08:55 Dose: 3 ml Alprazolam (Xanax) 0.5 mg PO TID@08,12,16 [facility] Last Admin: 01/01/19 08:55 Dose: 0.5 mg Amitriptyline HCl (Elavil) 25 mg PO BEDTIME [facility] Last Admin: 12/31/18 19:15 Dose: 25 mg Ascorbic Acid (Vitamin C) 500 mg PO DAILY [facility] Last Admin: 01/01/19 08:52 Dose: 500 mg Budesonide (Pulmicort) 0.5 mg NEB BIDRT [facility] Last Admin: 01/01/19 08:53 Dose: 0.5 mg Buspirone HCl (Buspar) 7.5 mg PO TID@08,14,20 [facility] Last Admin: 01/01/19 08:54 Dose: 7.5 mg Enoxaparin Sodium (Lovenox) 100 mg SUBCUT BEDTIME [facility] Last Admin: 12/31/18 22:36 Dose: 100 mg Ferrous Sulfate (Ferrous Sulfate) 325 mg PO DAILY [facility] Last Admin: 01/01/19 08:51 Dose: 325 mg Furosemide (Lasix) 40 mg IVPUSH BID@08,14 [facility] Last Admin: 01/01/19 08:56 Dose: Not Given Guaifenesin/Dextromethorphan (Mucinex Dm Er 600-30 Mg) 1 tab PO BID [facility] Last Admin: 01/01/19 08:55 Dose: 1 tab Hydroxyzine HCl (Atarax) 25 mg PO BEDTIME [facility] Last Admin: 12/31/18 19:15 Dose: 25 mg Ceftriaxone Sodium 1 gm/ (Sodium Chloride) 100 mls @ 200 mls/hr IV Q12H [facility] Last Admin: 01/01/19 08:42 Dose: 200 mls/hr Levofloxacin/Dextrose 500 mg/ (Premix) 100 mls @ 100 mls/hr IV Q24H [facility] Last Admin: 12/31/18 21:30 Dose: 100 mls/hr Insulin Glargine (Lantus) 55 unit SUBCUT BEDTIME [facility] Last Admin: 12/31/18 20:14 Dose: 55 units Insulin Human Lispro (Humalog) 25 unit SUBCUT TID@08,12,17 [facility] Last Admin: 01/01/19 08:39 Dose: 25 units Insulin Human Lispro (Humalog) 0 unit SUBCUT QIDACANDBED [facility]; Protocol Last Admin: 01/01/19 08:41 Dose: 2 units Lisinopril (Prinivil) 10 mg PO DAILY [facility] Last Admin: 01/01/19 08:52 Dose: 10 mg Loperamide HCl (Imodium Ad) 2 mg PO QID PRN PRN Reason: Diarrhea Magnesium Oxide (Magnesium Oxide) 400 mg PO BID [facility] Last Admin: 01/01/19 08:51 Dose: 400 mg Mirabegron (Myrbetriq) 25 mg PO DAILY [facility] Last Admin: 01/01/19 08:51 Dose: 25 mg Multivitamins/Minerals/Vitamin C (Tab-A-Jessie) 1 tab PO DAILY [facility] Last Admin: 01/01/19 08:53 Dose: 1 tab Non-Formulary Medication (Methyl Salicylate/Menthol [Salonpas Patch]) 1 each TP BID PRN PRN Reason: Pain Omeprazole (Omeprazole) 20 mg PO DAILY [facility] Last Admin: 01/01/19 08:51 Dose: 20 mg Polyethylene Glycol (Miralax) 17 gm PO DAILY PRN PRN Reason: Constipation Potassium Chloride (Klor-Con M20) 20 meq PO BID [facility] Last Admin: 12/31/18 17:44 Dose: Not Given Pregabalin (Lyrica) 100 mg PO BID@08,20 [facility] Last Admin: 01/01/19 08:54 Dose: 100 mg Sodium Chloride (Saline Flush) 10 ml FLUSH ASDIRECTED PRN PRN Reason: Keep Vein Open Last Admin: 01/01/19 08:42 Dose: 10 ml Sodium Chloride (Saline Flush) 10 ml FLUSH Q12H [facility] Last Admin: 01/01/19 09:12 Dose: 10 ml Discontinued Medications Albuterol/Ipratropium (Duoneb 3.0-0.5 Mg/3 Ml) 3 ml NEB ONETIME ONE Stop: 12/30/18 18:41 Last Admin: 12/30/18 19:06 Dose: 3 ml Albuterol/Ipratropium (Duoneb 3.0-0.5 Mg/3 Ml) 3 ml NEB Q6HRRT [facility] Last Admin: 12/31/18 19:15 Dose: 3 ml Budesonide (Pulmicort) 0.5 mg NEB ONETIME ONE Stop: 12/30/18 18:41 Last Admin: 12/30/18 19:06 Dose: 0.5 mg Enoxaparin Sodium (Lovenox) 100 mg SUBCUT Q24H [facility] Last Admin: 12/31/18 00:05 Dose: 100 mg Furosemide (Lasix) 40 mg IVPUSH Q12H [facility] Last Admin: 12/31/18 11:49 Dose: Not Given Ceftriaxone Sodium 1 gm/ (Sodium Chloride) 100 mls @ 200 mls/hr IV ONETIME ONE Stop: 12/30/18 20:20 Last Admin: 12/30/18 20:03 Dose: 200 mls/hr Iopamidol (Isovue-370 (76%)) 100 ml IVPUSH ONETIME ONE Stop: 12/30/18 20:10 Last Admin: 12/30/18 20:59 Dose: 100 ml - Exam General: Alert, Oriented HEENT: Pupils Equal, Pupils Reactive, EOMI, Mucous Membr. Moist/Miguel Barrera Neck: Supple Lungs: Rales (In basis) Cardiovascular: Regular Rate, Regular Rhythm GI/Abdominal Exam: Normal Bowel Sounds, Soft, Non-Tender, No Organomegaly, No Distention, No Abnormal Bruit, No Mass, Pelvis Stable (Female) Exam: Deferred Back Exam: Normal Inspection Extremities: Other (Status post) Skin: Warm, Dry, Intact Wound/Incisions: Healing Well Neurological: No New Focal Deficit Psy/Mental Status: Alert, Normal Affect, Normal Mood - Problem List Review Problem List Initiated/Reviewed/Updated: Yes - My Orders Last 24 Hours: My Active Orders 12/31/18 21:45 Enoxaparin [Lovenox] 100 mg SUBCUT BEDTIME 01/01/19 08:00 Albuterol/Ipratropium [DuoNeb 3.0-0.5 MG/3 ML] 3 ml NEB QID Furosemide [Lasix] 40 mg IVPUSH BID@08,14 01/01/19 Breakfast ADA Diabetic [[place] [employer] Diet] [DIET] - Plan Plan:: Continue antibiotics continue monitoring electrolytes
[2019-01-01] MEDS: Potassium Chloride 20 MEQ Tab.ER PO SCH ×2 (10:23→17:12)
[2019-01-01] MEDS: Amitriptyline 25 MG Tab PO SCH (19:14)
[2019-01-01] MEDS: hydrOXYzine HCl 25 MG Tab PO SCH (19:14)
[2019-01-01] MEDS: Enoxaparin 100 MG/1 ML Syringe SUBCUT SCH (19:15)
[2019-01-01] MEDS: Insulin Glarg,Human.Rec.Analog 100 UNIT/ML ML SUBCUT SCH (20:52)
[2019-01-01] MEDS: Levofloxacin/Dextrose 5%-Water 500 MG in Premix Bag 1 BAG IV SCH (20:55)
[2019-01-02] MEDS: Albuterol/Ipratropium 3.0-0.5 MG/3 ML Neb Soln NEB SCH ×4 (07:25→20:23)
[2019-01-02] MEDS: cefTRIAXone 1 GM in Sodium Chloride 0.9% 100 ML IV SCH ×2 (07:30→20:26)
[2019-01-02] MEDS: Sodium Chloride 0.9% 10 ML Syringe FLUSH PRN ×3 (07:30→13:27)
[2019-01-02] MEDS: Insulin Lispro 100 Units/ML 3 ML Vial SUBCUT SCH ×5 (07:34→17:29)
[2019-01-02] MEDS: Budesonide 0.5 MG/2 ML Neb Susp NEB SCH ×2 (07:36→20:26)
[2019-01-02] MEDS: Dextromethorphan/guaiFENesin 600-30 MG Tab.ER PO SCH ×2 (07:44→17:33)
[2019-01-02] MEDS: Magnesium Oxide 400 MG Tab PO SCH ×2 (07:44→17:27)
[2019-01-02] MEDS: Mirabegron 25 MG Tab Extended Release PO SCH (07:45)
[2019-01-02] MEDS: Pregabalin 25 MG Cap PO SCH ×2 (07:45→20:25)
[2019-01-02] MEDS: Lisinopril 10 MG Tab PO SCH (07:45)
[2019-01-02] MEDS: busPIRone 15 MG Tab PO SCH ×3 (07:46→20:24)
[2019-01-02] MEDS: Omeprazole 20 MG Cap.CR PO SCH ×2 (07:47→17:27)
[2019-01-02] MEDS: Multivitamin Tab PO SCH (07:47)
[2019-01-02] MEDS: Potassium Chloride 20 MEQ Tab.ER PO SCH (07:47)
[2019-01-02] MEDS: Ferrous Sulfate 325 MG Tab PO SCH (07:47)
[2019-01-02] MEDS: Ascorbic Acid 500 MG Tab PO SCH (07:47)
[2019-01-02] MEDS: ALPRAZolam 0.25 MG Tab PO SCH ×3 (07:47→17:27)
[2019-01-02] MEDS: Furosemide 40 MG/4 ML VIAL IVPUSH SCH ×2 (08:25→13:20)
[2019-01-02] MEDS: Sodium Chloride 0.9% 10 ML Syringe FLUSH SCH ×2 (08:31→20:32)
--- NOTE | 2019-01-02 08:53 | PCM.PN ---
- General Info Date of Service: 01/02/19 Admission Dx/Problem (Free Text): 1. CHF 2. Pneumonia 3. 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 Functional Status: Reports: Pain Controlled, Tolerating Diet, Urinating, Incentive Spirometry. Denies: Ambulating, New Symptoms Pain Score: 0 - Review of Systems General: Reports: Fever, Weakness (Improving). Denies: Fatigue, Malaise, Chills , Night Sweats, Appetite (Adequate) HEENT: Reports: Glasses (Not wearing). Denies: Dysphasia, Sinus Congestion, Sore Throat, Rhinitis Pulmonary: Reports: Cough. Denies: Shortness of Breath, Sputum, Wheezing Cardiovascular: Reports: No Symptoms. Denies: Chest Pain, Edema Gastrointestinal: Reports: Constipation, Other (Bowel movement this morning?). Denies: Abdominal Pain, Decreased Appetite Genitourinary: Reports: No Symptoms Musculoskeletal: Reports: No Symptoms Skin: Reports: Other (Cellulitis of the stump on left leg improving) Neurological: Reports: Confusion (Stable with patient somewhat more alert), Difficulty Walking (Below the knee left leg amputation), Weakness (Stable) - Patient Data Vitals - Most Recent: Last Vital Signs Temp 37.2 C 01/02/19 00:00 Pulse 86 01/01/19 20:00 Resp 20 01/01/19 20:00 BP 123/59 L 01/02/19 07:45 Pulse Ox 93 L 01/01/19 20:00 Vital Signs - 24 hr 01/01/19 01/01/19 01/01/19 08:52 12:18 14:42 Temperature [ Oral] Temperature [ 37.1 C Temporal] Pulse, 62 Peripheral [ Pulse Oximetry] Respiratory 20 Rate Blood Pressure 119/31 L Blood Pressure 148/41 H [Left Lower Arm ] Blood Pressure [Left Upper Arm ] Blood Pressure 145/42 H [Right Upper Arm] O2 Sat by Pulse 99 Oximetry 01/01/19 01/01/19 01/02/19 16:00 20:00 00:00 Temperature [ 37.1 C Oral] Temperature [ 37.9 C 37.2 C Temporal] Pulse, 71 86 Peripheral [ Pulse Oximetry] Respiratory 20 20 Rate Blood Pressure Blood Pressure [Left Lower Arm ] Blood Pressure 145/76 H 81/48 L [Left Upper Arm ] Blood Pressure 102/52 L [Right Upper Arm] O2 Sat by Pulse 95 93 L Oximetry 01/02/19 07:45 Temperature [ Oral] Temperature [ Temporal] Pulse, Peripheral [ Pulse Oximetry] Respiratory Rate Blood Pressure 123/59 L Blood Pressure [Left Lower Arm ] Blood Pressure [Left Upper Arm ] Blood Pressure [Right Upper Arm] O2 Sat by Pulse Oximetry Weight - Most Recent: 97.749 kg I&O - Last 24 Hours: Intake & Output 01/01/19 01/02/19 01/02/19 22:59 06:59 14:59 Intake Total 600 500 Balance 600 500 Imaging Impressions - Last 24 Hours: None with previous normal sinus rhythm with heart rate in the 60s to 80s Lab Results Last 24 Hours: Laboratory Results - last 24 hr 01/01/19 01/01/19 01/01/19 Range/Units 09:05 09:35 12:03 WBC 8.6 (4.0-10.2) K/uL RBC 3.57 L (3.77-5.09) M/uL Hgb 12.0 (11.7-15.5) g/dL Hct 37.0 (34.0-46.0) % MCV 103.6 H (84.0-98.0) fL MCH 33.6 H (28.2-33.3) pg MCHC 32.4 (31.7-36.0) g/dL RDW 13.3 (11.2-14.1) % Plt Count 132 L (150-350) K/uL Neut % (Auto) 71.8 (45.0-80.0) % Lymph % (Auto) 12.9 (10.0-50.0) % [place] % (Auto) 13.8 (2.0-14.0) % Eos % (Auto) 1.3 (0.0-5.0) % Baso % (Auto) 0.2 (0.0-2.0) % Neut # (Auto) 6.16 (1.40-7.00) K/uL Lymph # (Auto) 1.11 (0.50-3.50) K/uL [place] # (Auto) 1.18 H (0.00-1.00) K/uL Eos # (Auto) 0.11 (0.00-0.50) K/uL Baso # (Auto) 0.02 (0.00-0.20) K/uL Sodium 131 L (136-145) mmol/L Potassium 4.9 (3.5-5.1) mmol/L Chloride 96 L (98-107) mmol/L Carbon Dioxide 21.3 (21.0-32.0) mmol/L BUN 35 H (7-18) mg/dL Creatinine 2.41 H (0.51-1.17) mg/dL Est Cr Clr Drug Dosing 17.20 mL/min Estimated GFR (MDRD) 19 mL/min Glucose 191 H (74-106) mg/dL POC Glucose 162 H (65-110) mg/dl Calcium 8.4 L (8.5-10.1) mg/dL Total Bilirubin 0.3 (0.2-1.0) mg/dL AST 23 (15-37) U/L ALT 19 (12-78) U/L Alkaline Phosphatase 94 (46-116) IU/L Creatine Kinase 164 (26-308) U/L Creatine Kinase Index 0.4 (0.0-2.5) % CK-MB (CK-2) 0.60 (0.00-3.60) ng/mL NT-Pro-B Natriuret Pep 513 H (0-125) pg/mL Total Protein 7.8 (6.4-8.2) g/dL Albumin 2.5 L (3.4-5.0) g/dL 01/01/19 01/01/19 01/02/19 Range/Units 17:08 20:51 06:55 WBC 8.8 (4.0-10.2) K/uL RBC 3.22 L (3.77-5.09) M/uL Hgb 10.9 L (11.7-15.5) g/dL Hct 33.3 L (34.0-46.0) % MCV 103.4 H (84.0-98.0) fL MCH 33.9 H (28.2-33.3) pg MCHC 32.7 (31.7-36.0) g/dL RDW 13.1 (11.2-14.1) % Plt Count 181 (150-350) K/uL Neut % (Auto) 66.0 (45.0-80.0) % Lymph % (Auto) 18.0 (10.0-50.0) % [place] % (Auto) 14.8 H (2.0-14.0) % Eos % (Auto) 1.0 (0.0-5.0) % Baso % (Auto) 0.2 (0.0-2.0) % Neut # (Auto) 5.78 (1.40-7.00) K/uL Lymph # (Auto) 1.58 (0.50-3.50) K/uL [place] # (Auto) 1.30 H (0.00-1.00) K/uL Eos # (Auto) 0.09 (0.00-0.50) K/uL Baso # (Auto) 0.02 (0.00-0.20) K/uL Sodium (136-145) mmol/L Potassium (3.5-5.1) mmol/L Chloride (98-107) mmol/L Carbon Dioxide (21.0-32.0) mmol/L BUN (7-18) mg/dL Creatinine (0.51-1.17) mg/dL Est Cr Clr Drug Dosing mL/min Estimated GFR (MDRD) mL/min Glucose (74-106) mg/dL POC Glucose 160 H 155 H (65-110) mg/dl Calcium (8.5-10.1) mg/dL Total Bilirubin (0.2-1.0) mg/dL AST (15-37) U/L ALT (12-78) U/L Alkaline Phosphatase (46-116) IU/L Creatine Kinase (26-308) U/L Creatine Kinase Index (0.0-2.5) % CK-MB (CK-2) (0.00-3.60) ng/mL NT-Pro-B Natriuret Pep (0-125) pg/mL Total Protein (6.4-8.2) g/dL Albumin (3.4-5.0) g/dL 01/02/19 01/02/19 Range/Units 06:55 07:22 WBC (4.0-10.2) K/uL RBC (3.77-5.09) M/uL Hgb (11.7-15.5) g/dL Hct (34.0-46.0) % MCV (84.0-98.0) fL MCH (28.2-33.3) pg MCHC (31.7-36.0) g/dL RDW (11.2-14.1) % Plt Count (150-350) K/uL Neut % (Auto) (45.0-80.0) % Lymph % (Auto) (10.0-50.0) % [place] % (Auto) (2.0-14.0) % Eos % (Auto) (0.0-5.0) % Baso % (Auto) (0.0-2.0) % Neut # (Auto) (1.40-7.00) K/uL Lymph # (Auto) (0.50-3.50) K/uL [place] # (Auto) (0.00-1.00) K/uL Eos # (Auto) (0.00-0.50) K/uL Baso # (Auto) (0.00-0.20) K/uL Sodium 130 L (136-145) mmol/L Potassium 6.0 H* (3.5-5.1) mmol/L Chloride 98 (98-107) mmol/L Carbon Dioxide 20.5 L (21.0-32.0) mmol/L BUN 42 H (7-18) mg/dL Creatinine 2.66 H (0.51-1.17) mg/dL Est Cr Clr Drug Dosing 15.58 mL/min Estimated GFR (MDRD) 17 mL/min Glucose 137 H (74-106) mg/dL POC Glucose 153 H (65-110) mg/dl Calcium 8.4 L (8.5-10.1) mg/dL Total Bilirubin 0.4 (0.2-1.0) mg/dL AST 25 (15-37) U/L ALT 22 (12-78) U/L Alkaline Phosphatase 92 (46-116) IU/L Creatine Kinase (26-308) U/L Creatine Kinase Index (0.0-2.5) % CK-MB (CK-2) (0.00-3.60) ng/mL NT-Pro-B Natriuret Pep 2539 H (0-125) pg/mL Total Protein 7.6 (6.4-8.2) g/dL Albumin 2.4 L (3.4-5.0) g/dL Arnol Results Last 24 Hours: Microbiology 12/30/18 19:20 Aerobic Blood Culture - Preliminary Blood - Venous - Lab Draw NO GROWTH AFTER 2 DAYS Anaerobic Blood Culture - Preliminary NO GROWTH AFTER 2 DAYS 12/30/18 19:10 Aerobic Blood Culture - Preliminary Blood - Venous NO GROWTH AFTER 2 DAYS Anaerobic Blood Culture - Preliminary NO GROWTH AFTER 2 DAYS 12/30/18 21:00 Urine Culture - Final Urine, Quick Cath (In-Out) Escherichia Coli Med Orders - Current: Current Medications Acetaminophen (Tylenol) 650 mg PO Q4H PRN PRN Reason: Pain/Fever Last Admin: 01/01/19 00:45 Dose: 650 mg Al Hydroxide/Mg Hydroxide (Mag-Al Plus) 5 ml PO Q4H PRN PRN Reason: gi distress Albuterol (Proventil Neb Soln) 2.5 mg NEB Q2H PRN PRN Reason: Dyspnea Albuterol/Ipratropium (Duoneb 3.0-0.5 Mg/3 Ml) 3 ml NEB Q4HRRT PRN PRN Reason: Dyspnea Last Admin: 12/31/18 00:19 Dose: 3 ml Albuterol/Ipratropium (Duoneb 3.0-0.5 Mg/3 Ml) 3 ml NEB QID ON LICENSE OF [facility] Last Admin: 01/02/19 07:25 Dose: 3 ml Alprazolam (Xanax) 0.5 mg PO TID@08,12,16 ON LICENSE OF [facility] Last Admin: 01/02/19 07:47 Dose: 0.5 mg Amitriptyline HCl (Elavil) 25 mg PO BEDTIME ON LICENSE OF [facility] Last Admin: 01/01/19 19:14 Dose: 25 mg Ascorbic Acid (Vitamin C) 500 mg PO DAILY ON LICENSE OF [facility] Last Admin: 01/02/19 07:47 Dose: 500 mg Budesonide (Pulmicort) 0.5 mg NEB BIDRT ON LICENSE OF [facility] Last Admin: 01/02/19 07:36 Dose: 0.5 mg Buspirone HCl (Buspar) 7.5 mg PO TID@,14,20 ON LICENSE OF [facility] Last Admin: 01/02/19 07:46 Dose: 7.5 mg Ferrous Sulfate (Ferrous Sulfate) 325 mg PO DAILY ON LICENSE OF [facility] Last Admin: 01/02/19 07:47 Dose: 325 mg Furosemide (Lasix) 40 mg IVPUSH BID@, ON LICENSE OF [facility] Last Admin: 01/02/19 08:25 Dose: 40 mg Guaifenesin/Dextromethorphan (Mucinex Dm Er 600-30 Mg) 1 tab PO BID ON LICENSE OF [facility] Last Admin: 01/02/19 07:44 Dose: 1 tab Hydroxyzine HCl (Atarax) 25 mg PO BEDTIME ON LICENSE OF [facility] Last Admin: 01/01/19 19:14 Dose: 25 mg Ceftriaxone Sodium 1 gm/ (Sodium Chloride) 100 mls @ 200 mls/hr IV Q12H ON LICENSE OF [facility] Last Admin: 01/02/19 07:30 Dose: 200 mls/hr Insulin Glargine (Lantus) 55 unit SUBCUT BEDTIME ON LICENSE OF [facility] Last Admin: 01/01/19 20:52 Dose: 55 units Insulin Human Lispro (Humalog) 25 unit SUBCUT TID@,,17 ON LICENSE OF [facility] Last Admin: 01/02/19 07:34 Dose: 25 units Insulin Human Lispro (Humalog) 0 unit SUBCUT BIDAC ON LICENSE OF [facility]; Protocol Lisinopril (Prinivil) 10 mg PO DAILY ON LICENSE OF [facility] Last Admin: 01/02/19 07:45 Dose: 10 mg Loperamide HCl (Imodium Ad) 2 mg PO QID PRN PRN Reason: Diarrhea Magnesium Oxide (Magnesium Oxide) 400 mg PO BID ON LICENSE OF [facility] Last Admin: 01/02/19 07:44 Dose: 400 mg Mirabegron (Myrbetriq) 25 mg PO DAILY ON LICENSE OF [facility] Last Admin: 01/02/19 07:45 Dose: 25 mg Multivitamins/Minerals/Vitamin C (Tab-A-Jessie) 1 tab PO DAILY ON LICENSE OF [facility] Last Admin: 01/02/19 07:47 Dose: 1 tab Non-Formulary Medication (Methyl Salicylate/Menthol [Salonpas Patch]) 1 each TP BID PRN PRN Reason: Pain Omeprazole (Omeprazole) 20 mg PO BIDAC ON LICENSE OF [facility] Polyethylene Glycol (Miralax) 17 gm PO DAILY PRN PRN Reason: Constipation Last Admin: 01/02/19 07:44 Dose: 17 gm Pregabalin (Lyrica) 100 mg PO BID@08,20 ON LICENSE OF [facility] Last Admin: 01/02/19 07:45 Dose: 100 mg Sodium Chloride (Saline Flush) 10 ml FLUSH ASDIRECTED PRN PRN Reason: Keep Vein Open Last Admin: 01/02/19 08:25 Dose: 10 ml Sodium Chloride (Saline Flush) 10 ml FLUSH Q12H ON LICENSE OF [facility] Last Admin: 01/02/19 08:31 Dose: Not Given Sodium Polystyrene Sulfonate (Kayexalate) 15 gm PO BID ON LICENSE OF [facility] Discontinued Medications Albuterol/Ipratropium (Duoneb 3.0-0.5 Mg/3 Ml) 3 ml NEB ONETIME ONE Stop: 12/30/18 18:41 Last Admin: 12/30/18 19:06 Dose: 3 ml Albuterol/Ipratropium (Duoneb 3.0-0.5 Mg/3 Ml) 3 ml NEB Q6HRRT ON LICENSE OF [facility] Last Admin: 12/31/18 19:15 Dose: 3 ml Budesonide (Pulmicort) 0.5 mg NEB ONETIME ONE Stop: 12/30/18 18:41 Last Admin: 12/30/18 19:06 Dose: 0.5 mg Enoxaparin Sodium (Lovenox) 100 mg SUBCUT Q24H ON LICENSE OF [facility] Last Admin: 12/31/18 00:05 Dose: 100 mg Enoxaparin Sodium (Lovenox) 100 mg SUBCUT BEDTIME ON LICENSE OF [facility] Last Admin: 01/01/19 19:15 Dose: 100 mg Furosemide (Lasix) 40 mg IVPUSH Q12H ON LICENSE OF [facility] Last Admin: 12/31/18 11:49 Dose: Not Given Ceftriaxone Sodium 1 gm/ (Sodium Chloride) 100 mls @ 200 mls/hr IV ONETIME ONE Stop: 12/30/18 20:20 Last Admin: 12/30/18 20:03 Dose: 200 mls/hr Levofloxacin/Dextrose 500 mg/ (Premix) 100 mls @ 100 mls/hr IV Q24H ON LICENSE OF [facility] Last Admin: 01/01/19 20:55 Dose: 100 mls/hr Insulin Human Lispro (Humalog) 0 unit SUBCUT QIDACANDBED ON LICENSE OF [facility]; Protocol Last Admin: 01/02/19 07:34 Dose: 2 units Iopamidol (Isovue-370 (76%)) 100 ml IVPUSH ONETIME ONE Stop: 12/30/18 20:10 Last Admin: 12/30/18 20:59 Dose: 100 ml Omeprazole (Omeprazole) 20 mg PO DAILY ON LICENSE OF [facility] Last Admin: 01/02/19 07:47 Dose: 20 mg Potassium Chloride (Klor-Con M20) 20 meq PO BID ON LICENSE OF [facility] Last Admin: 01/02/19 07:47 Dose: 20 meq - Exam Quality Assessment: DVT Prophylaxis (Lovenox). No: Supplemental Oxygen, Central Line/PICC, Urine Catheter, Skin Breakdown, Restraints General: Alert, Cooperative. No: Oriented (Stable moderate to severe organic brain syndrome although the patient is more alert today) HEENT: Pupils Equal, Pupils Reactive, EOMI, Mucous Membr. Moist/[place], Other ( Not wearing her glasses, stable mild presbycusis) Neck: Supple, Trachea Midline, No JVD, No Thyromegaly, Carotid Bruit (Stable mild bilateral carotid bruits). No: Lymphadenopathy, Thyromegaly Lungs: Normal Respiratory Effort, Rales (Mild mostly bilateral basilar rales improved). No: Rhonchi, Rub, Wheezing Cardiovascular: Regular Rate, Regular Rhythm, No Murmurs. No: Gallops, Rubs GI/Abdominal Exam: Normal Bowel Sounds, Soft, Non-Tender, No Organomegaly, No Distention, No Abnormal Bruit, No Mass, Pelvis Stable, Other (Obese). No: Guarding (Female) Exam: Deferred Back Exam: Other (Moderate kyphosis). No: CVA Tenderness (L), CVA Tenderness (R ), Muscle Spasm, Paraspinal Tenderness, Vertebral Tenderness Extremities: Non-Tender, No Pedal Edema, Redness (Improved area of cellulitis at the stump of her leg with only trace erythema at this time and no drainage), Other (Left below the knee amputation). No: Roberto's Sign, Increased Warmth Peripheral Pulses: 0: Dorsalis Pedis (L) ([id number] amputation), 2+: Radial (L), Radial (R), Dorsalis Pedis (R) Skin: Ecchymosis (Mild ecchymosis at subcutaneous insulin and Lovenox sites) Wound/Incisions: Healing Well, No Drainage, Erythema Improving (As above) Neurological: No New Focal Deficit Psy/Mental Status: Alert. No: Normal Affect, Anxious, Depressed, Hallucinations , Withdrawal Symptoms - Problem List & Annotations (1) Pneumonia SNOMED Code(s): 249391479 Code(s): J18.9 - PNEUMONIA, UNSPECIFIED ORGANISM Status: Acute Priority: High Current Visit: Yes Onset Date: ~05/30/19 Qualifiers: Pneumonia type: due to unspecified organism Laterality: right Lung location: upper lobe of lung Qualified Code(s): J18.1 - Lobar pneumonia, unspecified organism Annotation/Comment:: IV Rocephin therapy initiated in the emergency room. Blood cultures 2 were collected. Additional IV Levaquin therapy also initiated soon after admission, however this will be discontinued at this time secondary to patient's normal WBCs and culture and sensitivity results of her urine. Attempt to obtain sputum for culture and sensitivity, which still needs to be obtained. Continue current nebulizer therapy. (2) COPD (chronic obstructive pulmonary disease) SNOMED Code(s): 74902419 Code(s): J44.9 - CHRONIC OBSTRUCTIVE PULMONARY DISEASE, UNSPECIFIED Status : Chronic Priority: High Current Visit: Yes Qualifiers: COPD type: COPD with acute lower respiratory infection Qualified Code(s): J44.0 - Chronic obstructive pulmonary disease with acute lower respiratory infection Annotation/Comment:: Continue rest of nebulizer therapy. Otherwise as above. Triple nebulizer treatment performed shortly after patient's arrival to this facility. Symptoms and clinical findings improved prior to admission. (3) CHF (congestive heart failure) SNOMED Code(s): 47282799 Code(s): I50.9 - HEART FAILURE, UNSPECIFIED Status: Chronic Priority: High Current Visit: Yes Onset Date: 11/18/15 Qualifiers: Heart failure type: unspecified Heart failure chronicity: acute on chronic Qualified Code(s): I50.9 - Heart failure, unspecified Annotation/Comment:: BNP significantly increased possibly secondary to progression of her renal insufficiency. Note that her morning IV Lasix was held yesterday with significant hyperkalemia this morning. Initiate Kayexalate therapy. Continue IV Lasix and lisinopril for now with potassium supplementation to be discontinued. Likely extended stay required secondary to multiple complications including refractory CHF, progressive renal insufficiency , etc. No apparent chest pain or anginal complaints, although the patient is somewhat poor historian. Cardiology consultation and further workup depending on her clinical course, however note NO CODE STATUS. Prognosis extremely guarded. (4) D-dimer, elevated SNOMED Code(s): 355985262 Code(s): R79.89 - OTHER SPECIFIED ABNORMAL FINDINGS OF BLOOD CHEMISTRY Status: Acute Priority: High Current Visit: No Onset Date: 12/30/18 Annotation/Comment:: CTA of the chest results on admission was at suboptimal secondary to respiratory motion artifacts. Possible right upper lobe pulmonary infarction versus pneumonia. High-dose subcutaneous Lovenox therapy initiated on admission, however this will be discontinued today secondary to patient's progressive anemia. Venous Doppler studies of the lower extremities were conducted this morning with no evidence of DVT.indicate possible not yet available at time of dictation. Repeat d-dimer in the a.m. (5) Dementia SNOMED Code(s): 55976254 Code(s): F03.90 - UNSPECIFIED DEMENTIA WITHOUT BEHAVIORAL DISTURBANCE Status: Chronic Priority: Medium Current Visit: Yes Qualifiers: Dementia type: unspecified type Dementia behavioral disturbance: without behavioral disturbance Qualified Code(s): F03.90 - Unspecified dementia without behavioral disturbance Annotation/Comment:: Stable by history and during this hospitalization, although the patient did become more alert during later phases of this hospitalization. (6) Hypertension SNOMED Code(s): 59933494 Code(s): I10 - ESSENTIAL (PRIMARY) HYPERTENSION Status: Chronic Priority : Medium Current Visit: Yes Qualifiers: Hypertension type: essential hypertension Qualified Code(s): I10 - Essential (primary) hypertension Annotation/Comment:: Somewhat decreased blood pressures yesterday despite holding her a.m. dose of her Lasix therapy with lowest blood pressure of 81/48. Blood pressure much improved this morning. Patient somewhat hypotensive prior to arrival with systolic blood pressures in the 90s. Improved blood pressures with respiratory treatment in the emergency room. Continue to observe closely especially in light of IV Lasix therapy, etc. (7) IDDM (insulin dependent diabetes mellitus) SNOMED Code(s): 70417401 Code(s): E11.9 - TYPE 2 DIABETES MELLITUS WITHOUT COMPLICATIONS; Z79.4 - BIT TRIPOLER (CURRENT) USE OF INSULIN Status: Chronic Priority: Medium Current Visit: No Annotation/Comment:: Initiated 4 times a day Accu-Cheks and sliding scale on admission with this to be decreased to a twice a day, before meals, regimen secondary to sugars under good control at this time. No hypoglycemic episodes. (8) Mixed anxiety and depressive disorder SNOMED Code(s): 017388430 Code(s): F41.8 - OTHER SPECIFIED ANXIETY DISORDERS Status: Chronic Priority: Medium Current Visit: No Annotation/Comment:: Stable by history and during this hospitalization with significant multiple medications at this time, which were previously ordered by her regular provider, however no sedation was sequelae. Continue to observe closely secondary to her progressive renal insufficiency. (9) Osteoarthritis SNOMED Code(s): 617891743 Code(s): M19.90 - UNSPECIFIED OSTEOARTHRITIS, UNSPECIFIED SITE Status: Chronic Priority: Medium Current Visit: Yes Qualifiers: Osteoarthritis location: multiple joints Osteoarthritis type: primary Qualified Code(s): M15.0 - Primary generalized (osteo)arthritis Annotation/Comment:: Stable by history and during this hospitalization. (10) Peptic reflux disease SNOMED Code(s): 277934621 Code(s): K21.9 - GASTRO-ESOPHAGEAL REFLUX DISEASE WITHOUT ESOPHAGITIS Status: Chronic Priority: Medium Current Visit: No Annotation/Comment:: Note progressive anemia with hemoglobin of 10.9 in comparison to 12.0 earlier in this hospitalization. Her Prilosec will be increased to twice a day regimen with discontinuation of Lovenox as above. No abdominal pain or evidence of GI bleed. Attempt to obtain Hemoccult with no bowel movement to this point during this hospitalization. Continue to observe closely and stable by history and currently nonsymptomatic with progressive anemia possibly secondary to her worsening renal function. (11) Renal insufficiency SNOMED Code(s): 716107540, 159713767 Code(s): N28.9 - DISORDER OF KIDNEY AND URETER, UNSPECIFIED Status: Chronic Priority: Medium Current Visit: No Annotation/Comment:: As above. Observe her Diabetic nephropathy closely especially in light of IV Lasix therapy. (12) Cellulitis SNOMED Code(s): 485097251 Code(s): L03.90 - CELLULITIS, UNSPECIFIED Status: Acute Priority: High Current Visit: Yes Onset Date: ~12/30/18 Qualifiers: Site of cellulitis: extremity Site of cellulitis of extremity: lower extremity Laterality: left Qualified Code(s): L03.116 - Cellulitis of left lower limb Annotation/Comment:: Improved as above. Continue IV antibiotic therapy as above. No drainage for collection of specimen for culture and sensitivity. (13) Hypoalbuminemia SNOMED Code(s): 480929650 Code(s): E88.09 - OTH DISORDERS OF PLASMA-PROTEIN METABOLISM, NEC Status: Acute Priority: Medium Current Visit: Yes Annotation/Comment:: Observe for now. Consider high-protein Glucerna supplements as snacks (14) Need for comfort care SNOMED Code(s): 179400115, 763675479 Code(s): RJZ7748 - Status: Acute Priority: High Current Visit: Yes Annotation/Comment:: Prognosis Guarded. Continue comfort care. (15) Hypomagnesemia SNOMED Code(s): 271915741 Code(s): E83.42 - HYPOMAGNESEMIA Status: Chronic Priority: Medium Current Visit: Yes Annotation/Comment:: Magnesium oxide supplementation increased on admission with repeat magnesium level in the a.m. (16) Anemia SNOMED Code(s): 728062725 Code(s): D64.9 - ANEMIA, UNSPECIFIED Status: Acute Priority: High Current Visit: Yes Onset Date: 01/02/19 Qualifiers: Anemia type: due to chronic kidney disease Chronic kidney disease stage: stage 4 (severe) Qualified Code(s): N18.4 - Chronic kidney disease, stage 4 ( severe); D63.1 - Anemia in chronic kidney disease Annotation/Comment:: As above (17) UTI (urinary tract infection) SNOMED Code(s): 44411949 Code(s): N39.0 - URINARY TRACT INFECTION, SITE NOT SPECIFIED Status: Acute Priority: High Current Visit: Yes Onset Date: ~01/01/19 Qualifiers: Urinary tract infection type: acute cystitis Hematuria presence: without hematuria Qualified Code(s): N30.00 - Acute cystitis without hematuria Annotation/Comment:: Continue IV Rocephin as above. Urine culture and sensitivity report reviewed. (18) Hyperkalemia SNOMED Code(s): 24932669 Code(s): E87.5 - HYPERKALEMIA Status: Acute Priority: High Current Visit: Yes Onset Date: 01/02/19 Annotation/Comment:: As above - Problem List Review Problem List Initiated/Reviewed/Updated: Yes - My Orders Last 24 Hours: My Active Orders 01/02/19 05:11 Venous Doppler Lwr Ext Bi [US] Urgent 01/02/19 08:45 Sodium Polystyrene Sulfonate [Kayexalate] 15 gm PO BID 01/02/19 17:30 Insulin Lispro [HumaLOG] See Protocol SUBCUT BIDAC Omeprazole 20 mg PO BIDAC 01/03/19 05:11 EKG Documentation Completion [RC] ASDIRECTED Chest 2V [CR] Routine BASIC METABOLIC PANEL,BMP [CHEM] Routine CBC WITH AUTO DIFF [HEME] Routine PHOSPHORUS [CHEM] Routine PRO B-TYPE NATRIUR PEPT,BNPPRO [CHEM] Routine EKG 12 Lead [EK] Routine - Assessment Assessment:: As above - Plan Plan:: As above. Extensive precautions were given to the patient, who is in agreement with the treatment plan. Extended hospitalization likely required as above.
[2019-01-02] MEDS: Sodium Polystyrene Sulfonate 15 GM/60 ML Susp 60 ML Bot PO SCH ×2 (09:58→17:27)
[2019-01-02] MEDS ORDERED: Insulin Lispro 100 Units/ML 3 ML Vial SUBCUT ONE (12:00)
[2019-01-02] MEDS: Amitriptyline 25 MG Tab PO SCH (20:23)
[2019-01-02] MEDS: hydrOXYzine HCl 25 MG Tab PO SCH (20:24)
[2019-01-02] MEDS: Insulin Glarg,Human.Rec.Analog 100 UNIT/ML ML SUBCUT SCH (20:31)
[2019-01-03] MEDS: cefTRIAXone 1 GM in Sodium Chloride 0.9% 100 ML IV SCH ×2 (07:32→20:10)
[2019-01-03] MEDS: Albuterol/Ipratropium 3.0-0.5 MG/3 ML Neb Soln NEB SCH ×4 (07:33→20:10)
[2019-01-03] MEDS: Sodium Chloride 0.9% 10 ML Syringe FLUSH PRN ×4 (07:34→20:13)
[2019-01-03] MEDS: ALPRAZolam 0.25 MG Tab PO SCH ×3 (07:35→16:40)
[2019-01-03] MEDS: Furosemide 40 MG/4 ML VIAL IVPUSH SCH ×3 (07:35→17:14)
[2019-01-03] MEDS: Omeprazole 20 MG Cap.CR PO SCH ×2 (07:35→17:16)
[2019-01-03] MEDS: Pregabalin 25 MG Cap PO SCH ×2 (07:36→20:10)
[2019-01-03] MEDS: Lisinopril 10 MG Tab PO SCH (07:36)
[2019-01-03] MEDS: Budesonide 0.5 MG/2 ML Neb Susp NEB SCH ×2 (07:36→20:10)
[2019-01-03] MEDS: Multivitamin Tab PO SCH (07:37)
[2019-01-03] MEDS: Ferrous Sulfate 325 MG Tab PO SCH (07:38)
[2019-01-03] MEDS: Mirabegron 25 MG Tab Extended Release PO SCH (07:38)
[2019-01-03] MEDS: Magnesium Oxide 400 MG Tab PO SCH ×2 (07:38→17:16)
[2019-01-03] MEDS: Ascorbic Acid 500 MG Tab PO SCH (07:38)
[2019-01-03] MEDS: busPIRone 15 MG Tab PO SCH ×3 (07:39→20:43)
[2019-01-03] MEDS: Dextromethorphan/guaiFENesin 600-30 MG Tab.ER PO SCH ×2 (07:39→17:16)
[2019-01-03] MEDS: Insulin Lispro 100 Units/ML 3 ML Vial SUBCUT SCH ×5 (07:45→17:21)
[2019-01-03] MEDS: Sodium Polystyrene Sulfonate 15 GM/60 ML Susp 60 ML Bot PO SCH ×2 (07:50→17:14)
--- NOTE | 2019-01-03 08:02 | PCM.PN ---
- General Info Date of Service: 01/03/19 Admission Dx/Problem (Free Text): 1. CHF 2. Pneumonia 3. 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 Functional Status: Reports: Pain Controlled, Tolerating Diet, Urinating, Incentive Spirometry. Denies: Ambulating, New Symptoms Pain Score: 5 (Low back) - Review of Systems General: Reports: Fever (37.3 this morning with maximum fever of 37.5 during the last 24 hoursimproved), Weakness (Stable chronic). Denies: Fatigue, Malaise, Chills, Night Sweats, Appetite (Adequate) HEENT: Reports: No Symptoms, Glasses Pulmonary: Reports: No Symptoms. Denies: Shortness of Breath, Pleuritic Chest Pain, Cough, Sputum, Wheezing Cardiovascular: Reports: No Symptoms. Denies: Chest Pain, Edema Gastrointestinal: Reports: Diarrhea (Mild loose stools secondary to Kayexalate) . Denies: Abdominal Pain, Flatus, Hematochezia, Melena Genitourinary: Reports: Incontinence Musculoskeletal: Reports: Back Pain. Denies: Leg Pain Skin: Reports: Other (Mildly increased erythema of left below-knee amputation stump) Neurological: Reports: Confusion (Stable moderate to severe), Difficulty Walking (Below the knee amputation), Weakness (Stable) Psychiatric: Reports: Confusion (Stable). Denies: Agitation, Cravings, Hallucinations - Patient Data Vitals - Most Recent: Last Vital Signs Temp 37.3 C 01/02/19 20:00 Pulse 70 01/02/19 20:00 Resp 18 01/02/19 20:00 BP 122/52 L 01/03/19 07:36 Pulse Ox 93 L 01/02/19 20:00 Vital Signs - 24 hr 01/02/19 01/02/19 01/02/19 13:22 16:00 20:00 Temperature [ 37.5 C 37.3 C Oral] Temperature [ 36.2 C Temporal] Pulse, 61 62 70 Peripheral [ Pulse Oximetry] Respiratory 20 20 18 Rate Blood Pressure Blood Pressure 141/57 H [Left Lower Arm ] Blood Pressure 130/78 [Left Upper Arm ] Blood Pressure 147/65 H [Right Upper Arm] O2 Sat by Pulse 96 92 L 93 L Oximetry 01/03/19 07:36 Temperature [ Oral] Temperature [ Temporal] Pulse, Peripheral [ Pulse Oximetry] Respiratory Rate Blood Pressure 122/52 L Blood Pressure [Left Lower Arm ] Blood Pressure [Left Upper Arm ] Blood Pressure [Right Upper Arm] O2 Sat by Pulse Oximetry Weight - Most Recent: 97.749 kg I&O - Last 24 Hours: Intake & Output 01/02/19 01/03/19 01/03/19 22:59 06:59 14:59 Intake Total 957 Balance 957 Imaging Impressions - Last 24 Hours: monitor 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 ?- Paced rhythm Chest x-ray, portable, shows moderate to severe cardiomegaly with moderate mostly centralized CHF, including some prominence of the right perihilar region. Possible pulmonary infiltrates versus atelectasis in the eye. Hilar and right middle lobe regions. Moderate COPD changes. Pacemaker noted. No pneumothorax. Mild aortic valve calcification. Lab Results Last 24 Hours: Laboratory Results - last 24 hr 01/02/19 01/02/19 01/02/19 Range/Units 13:19 17:26 20:22 WBC (4.0-10.2) K/uL RBC (3.77-5.09) M/uL Hgb (11.7-15.5) g/dL Hct (34.0-46.0) % MCV (84.0-98.0) fL MCH (28.2-33.3) pg MCHC (31.7-36.0) g/dL RDW (11.2-14.1) % Plt Count (150-350) K/uL Neut % (Auto) (45.0-80.0) % Lymph % (Auto) (10.0-50.0) % [place] % (Auto) (2.0-14.0) % Eos % (Auto) (0.0-5.0) % Baso % (Auto) (0.0-2.0) % Neut # (Auto) (1.40-7.00) K/uL Lymph # (Auto) (0.50-3.50) K/uL [place] # (Auto) (0.00-1.00) K/uL Eos # (Auto) (0.00-0.50) K/uL Baso # (Auto) (0.00-0.20) K/uL POC Glucose 193 H 232 H 222 H (65-110) mg/dl 01/03/19 01/03/19 Range/Units 07:26 07:30 WBC 9.1 (4.0-10.2) K/uL RBC 3.27 L (3.77-5.09) M/uL Hgb 11.0 L (11.7-15.5) g/dL Hct 33.9 L (34.0-46.0) % MCV 103.7 H (84.0-98.0) fL MCH 33.6 H (28.2-33.3) pg MCHC 32.4 (31.7-36.0) g/dL RDW 12.9 (11.2-14.1) % Plt Count 189 (150-350) K/uL Neut % (Auto) 68.8 (45.0-80.0) % Lymph % (Auto) 16.4 (10.0-50.0) % [place] % (Auto) 13.1 (2.0-14.0) % Eos % (Auto) 1.4 (0.0-5.0) % Baso % (Auto) 0.3 (0.0-2.0) % Neut # (Auto) 6.24 (1.40-7.00) K/uL Lymph # (Auto) 1.49 (0.50-3.50) K/uL [place] # (Auto) 1.19 H (0.00-1.00) K/uL Eos # (Auto) 0.13 (0.00-0.50) K/uL Baso # (Auto) 0.03 (0.00-0.20) K/uL POC Glucose 204 H (65-110) mg/dl Laboratory Results - last 24 hr 01/02/19 01/02/19 01/02/19 Range/Units 13:19 17:26 20:22 WBC (4.0-10.2) K/uL RBC (3.77-5.09) M/uL Hgb (11.7-15.5) g/dL Hct (34.0-46.0) % MCV (84.0-98.0) fL MCH (28.2-33.3) pg MCHC (31.7-36.0) g/dL RDW (11.2-14.1) % Plt Count (150-350) K/uL Neut % (Auto) (45.0-80.0) % Lymph % (Auto) (10.0-50.0) % [place] % (Auto) (2.0-14.0) % Eos % (Auto) (0.0-5.0) % Baso % (Auto) (0.0-2.0) % Neut # (Auto) (1.40-7.00) K/uL Lymph # (Auto) (0.50-3.50) K/uL [place] # (Auto) (0.00-1.00) K/uL Eos # (Auto) (0.00-0.50) K/uL Baso # (Auto) (0.00-0.20) K/uL D-Dimer, Quantitative (0-400) ng/mL Sodium (136-145) mmol/L Potassium (3.5-5.1) mmol/L Chloride (98-107) mmol/L Carbon Dioxide (21.0-32.0) mmol/L BUN (7-18) mg/dL Creatinine (0.51-1.17) mg/dL Est Cr Clr Drug Dosing mL/min Estimated GFR (MDRD) mL/min Glucose (74-106) mg/dL POC Glucose 193 H 232 H 222 H (65-110) mg/dl Calcium (8.5-10.1) mg/dL Phosphorus (2.6-4.7) mg/dL Magnesium (1.8-2.4) mg/dL NT-Pro-B Natriuret Pep (0-125) pg/mL 01/03/19 01/03/19 01/03/19 Range/Units 07:26 07:30 07:30 WBC 9.1 (4.0-10.2) K/uL RBC 3.27 L (3.77-5.09) M/uL Hgb 11.0 L (11.7-15.5) g/dL Hct 33.9 L (34.0-46.0) % MCV 103.7 H (84.0-98.0) fL MCH 33.6 H (28.2-33.3) pg MCHC 32.4 (31.7-36.0) g/dL RDW 12.9 (11.2-14.1) % Plt Count 189 (150-350) K/uL Neut % (Auto) 68.8 (45.0-80.0) % Lymph % (Auto) 16.4 (10.0-50.0) % [place] % (Auto) 13.1 (2.0-14.0) % Eos % (Auto) 1.4 (0.0-5.0) % Baso % (Auto) 0.3 (0.0-2.0) % Neut # (Auto) 6.24 (1.40-7.00) K/uL Lymph # (Auto) 1.49 (0.50-3.50) K/uL [place] # (Auto) 1.19 H (0.00-1.00) K/uL Eos # (Auto) 0.13 (0.00-0.50) K/uL Baso # (Auto) 0.03 (0.00-0.20) K/uL D-Dimer, Quantitative (0-400) ng/mL Sodium 133 L (136-145) mmol/L Potassium 5.2 H (3.5-5.1) mmol/L Chloride 100 (98-107) mmol/L Carbon Dioxide 20.7 L (21.0-32.0) mmol/L BUN 46 H (7-18) mg/dL Creatinine 1.99 H (0.51-1.17) mg/dL Est Cr Clr Drug Dosing 20.77 mL/min Estimated GFR (MDRD) 24 mL/min Glucose 190 H (74-106) mg/dL POC Glucose 204 H (65-110) mg/dl Calcium 9.0 (8.5-10.1) mg/dL Phosphorus 5.0 H (2.6-4.7) mg/dL Magnesium 2.0 (1.8-2.4) mg/dL NT-Pro-B Natriuret Pep 2471 H (0-125) pg/mL 01/03/19 Range/Units 07:30 WBC (4.0-10.2) K/uL RBC (3.77-5.09) M/uL Hgb (11.7-15.5) g/dL Hct (34.0-46.0) % MCV (84.0-98.0) fL MCH (28.2-33.3) pg MCHC (31.7-36.0) g/dL RDW (11.2-14.1) % Plt Count (150-350) K/uL Neut % (Auto) (45.0-80.0) % Lymph % (Auto) (10.0-50.0) % [place] % (Auto) (2.0-14.0) % Eos % (Auto) (0.0-5.0) % Baso % (Auto) (0.0-2.0) % Neut # (Auto) (1.40-7.00) K/uL Lymph # (Auto) (0.50-3.50) K/uL [place] # (Auto) (0.00-1.00) K/uL Eos # (Auto) (0.00-0.50) K/uL Baso # (Auto) (0.00-0.20) K/uL D-Dimer, Quantitative 1040 H (0-400) ng/mL Sodium (136-145) mmol/L Potassium (3.5-5.1) mmol/L Chloride (98-107) mmol/L Carbon Dioxide (21.0-32.0) mmol/L BUN (7-18) mg/dL Creatinine (0.51-1.17) mg/dL Est Cr Clr Drug Dosing mL/min Estimated GFR (MDRD) mL/min Glucose (74-106) mg/dL POC Glucose (65-110) mg/dl Calcium (8.5-10.1) mg/dL Phosphorus (2.6-4.7) mg/dL Magnesium (1.8-2.4) mg/dL NT-Pro-B Natriuret Pep (0-125) pg/mL Arnol Results Last 24 Hours: Microbiology 12/30/18 19:20 Aerobic Blood Culture - Preliminary Blood - Venous - Lab Draw NO GROWTH AFTER 3 DAYS Anaerobic Blood Culture - Preliminary NO GROWTH AFTER 3 DAYS 12/30/18 19:10 Aerobic Blood Culture - Preliminary Blood - Venous NO GROWTH AFTER 3 DAYS Anaerobic Blood Culture - Preliminary NO GROWTH AFTER 3 DAYS 01/02/19 10:05 Stool Occult Blood (ARNOL) - Final Stool / Feces NEGATIVE OCCULT BLOOD REFERENCE RANGE: NEGATIVE MRSA still pending Med Orders - Current: Current Medications Acetaminophen (Tylenol) 650 mg PO Q4H PRN PRN Reason: Pain/Fever Last Admin: 01/01/19 00:45 Dose: 650 mg Al Hydroxide/Mg Hydroxide (Mag-Al Plus) 5 ml PO Q4H PRN PRN Reason: gi distress Albuterol (Proventil Neb Soln) 2.5 mg NEB Q2H PRN PRN Reason: Dyspnea Albuterol/Ipratropium (Duoneb 3.0-0.5 Mg/3 Ml) 3 ml NEB Q4HRRT PRN PRN Reason: Dyspnea Last Admin: 12/31/18 00:19 Dose: 3 ml Albuterol/Ipratropium (Duoneb 3.0-0.5 Mg/3 Ml) 3 ml NEB QID [facility] Last Admin: 01/03/19 07:33 Dose: 3 ml Alprazolam (Xanax) 0.5 mg PO TID@08,12,16 [facility] Last Admin: 01/03/19 07:35 Dose: 0.5 mg Amitriptyline HCl (Elavil) 25 mg PO BEDTIME [facility] Last Admin: 01/02/19 20:23 Dose: 25 mg Ascorbic Acid (Vitamin C) 500 mg PO DAILY [facility] Last Admin: 01/03/19 07:38 Dose: 500 mg Budesonide (Pulmicort) 0.5 mg NEB BIDRT [facility] Last Admin: 01/03/19 07:36 Dose: 0.5 mg Buspirone HCl (Buspar) 7.5 mg PO TID@08,14,20 [facility] Last Admin: 01/03/19 07:39 Dose: 7.5 mg Ferrous Sulfate (Ferrous Sulfate) 325 mg PO DAILY [facility] Last Admin: 01/03/19 07:38 Dose: 325 mg Furosemide (Lasix) 40 mg IVPUSH BID@08,14 [facility] Last Admin: 01/02/19 13:20 Dose: 40 mg Guaifenesin/Dextromethorphan (Mucinex Dm Er 600-30 Mg) 1 tab PO BID [facility] Last Admin: 01/03/19 07:39 Dose: 1 tab Hydroxyzine HCl (Atarax) 25 mg PO BEDTIME [facility] Last Admin: 01/02/19 20:24 Dose: 25 mg Ceftriaxone Sodium 1 gm/ (Sodium Chloride) 100 mls @ 200 mls/hr IV Q12H [facility] Last Admin: 01/03/19 07:32 Dose: 200 mls/hr Insulin Glargine (Lantus) 55 unit SUBCUT BEDTIME [facility] Last Admin: 01/02/19 20:31 Dose: 55 units Insulin Human Lispro (Humalog) 25 unit SUBCUT TID@08,12,17 [facility] Last Admin: 01/03/19 07:45 Dose: 25 units Insulin Human Lispro (Humalog) 0 unit SUBCUT BIDAC [facility]; Protocol Last Admin: 01/03/19 07:47 Dose: 4 units Lisinopril (Prinivil) 10 mg PO DAILY [facility] Last Admin: 01/03/19 07:36 Dose: 10 mg Loperamide HCl (Imodium Ad) 2 mg PO QID PRN PRN Reason: Diarrhea Magnesium Oxide (Magnesium Oxide) 400 mg PO BID [facility] Last Admin: 01/03/19 07:38 Dose: 400 mg Mirabegron (Myrbetriq) 25 mg PO DAILY [facility] Last Admin: 01/03/19 07:38 Dose: 25 mg Multivitamins/Minerals/Vitamin C (Tab-A-Jessie) 1 tab PO DAILY [facility] Last Admin: 01/03/19 07:37 Dose: 1 tab Non-Formulary Medication (Methyl Salicylate/Menthol [Salonpas Patch]) 1 each TP BID PRN PRN Reason: Pain Omeprazole (Omeprazole) 20 mg PO BIDAC [facility] Last Admin: 01/03/19 07:35 Dose: 20 mg Polyethylene Glycol (Miralax) 17 gm PO DAILY PRN PRN Reason: Constipation Last Admin: 01/02/19 07:44 Dose: 17 gm Pregabalin (Lyrica) 100 mg PO BID@08,20 [facility] Last Admin: 01/03/19 07:36 Dose: 100 mg Sodium Chloride (Saline Flush) 10 ml FLUSH ASDIRECTED PRN PRN Reason: Keep Vein Open Last Admin: 01/03/19 07:44 Dose: 10 ml Sodium Chloride (Saline Flush) 10 ml FLUSH Q12H [facility] Last Admin: 01/02/19 20:32 Dose: 10 ml Sodium Polystyrene Sulfonate (Kayexalate) 15 gm PO BID [facility] Last Admin: 01/03/19 07:50 Dose: 15 gm Discontinued Medications Albuterol/Ipratropium (Duoneb 3.0-0.5 Mg/3 Ml) 3 ml NEB ONETIME ONE Stop: 12/30/18 18:41 Last Admin: 12/30/18 19:06 Dose: 3 ml Albuterol/Ipratropium (Duoneb 3.0-0.5 Mg/3 Ml) 3 ml NEB Q6HRRT [facility] Last Admin: 12/31/18 19:15 Dose: 3 ml Budesonide (Pulmicort) 0.5 mg NEB ONETIME ONE Stop: 12/30/18 18:41 Last Admin: 12/30/18 19:06 Dose: 0.5 mg Enoxaparin Sodium (Lovenox) 100 mg SUBCUT Q24H [facility] Last Admin: 12/31/18 00:05 Dose: 100 mg Enoxaparin Sodium (Lovenox) 100 mg SUBCUT BEDTIME [facility] Last Admin: 01/01/19 19:15 Dose: 100 mg Furosemide (Lasix) 40 mg IVPUSH Q12H [facility] Last Admin: 12/31/18 11:49 Dose: Not Given Ceftriaxone Sodium 1 gm/ (Sodium Chloride) 100 mls @ 200 mls/hr IV ONETIME ONE Stop: 12/30/18 20:20 Last Admin: 12/30/18 20:03 Dose: 200 mls/hr Levofloxacin/Dextrose 500 mg/ (Premix) 100 mls @ 100 mls/hr IV Q24H [facility] Last Admin: 01/01/19 20:55 Dose: 100 mls/hr Insulin Human Lispro (Humalog) 0 unit SUBCUT QIDACANDBED [facility]; Protocol Last Admin: 01/02/19 07:34 Dose: 2 units Insulin Human Lispro (Humalog) 12.5 unit SUBCUT ONETIME ONE Stop: 01/02/19 12:01 Last Admin: 01/02/19 13:26 Dose: 12.5 units Iopamidol (Isovue-370 (76%)) 100 ml IVPUSH ONETIME ONE Stop: 12/30/18 20:10 Last Admin: 12/30/18 20:59 Dose: 100 ml Omeprazole (Omeprazole) 20 mg PO DAILY [facility] Last Admin: 01/02/19 07:47 Dose: 20 mg Potassium Chloride (Klor-Con M20) 20 meq PO BID [facility] Last Admin: 01/02/19 07:47 Dose: 20 meq - Exam Quality Assessment: DVT Prophylaxis. 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 Moist/[place] Neck: Supple, Trachea Midline, No JVD, No Thyromegaly, Carotid Bruit (Mild bilateral carotid bruits). No: Lymphadenopathy Lungs: Normal Respiratory Effort, Rales (Stable mild bilateral basilar rales). No: Rhonchi, Rub, Wheezing Cardiovascular: Regular Rate, Regular Rhythm, No Murmurs. No: Gallops, Rubs GI/Abdominal Exam: Normal Bowel Sounds, Soft, Non-Tender, No Organomegaly, No Distention, No Abnormal Bruit, No Mass, Other (Obese). No: Guarding (Female) Exam: Deferred Back Exam: Normal Inspection, Full Range of Motion, Other (Moderate kyphosis with mild exacerbation of her chronic low back pain). No: CVA Tenderness (L), CVA Tenderness (R), Muscle Spasm, Paraspinal Tenderness, Vertebral Tenderness Extremities: No Pedal Edema, Normal Capillary Refill, Redness (Somewhat increased +1 erythema of the distal stump of the left [id number] amputation with no drainage, ulceration, etc.. Area of erythema is slowly decreasing, however.). No: Roberto's Sign, Leg Pain, Increased Warmth Peripheral Pulses: 0: Dorsalis Pedis (L) (Below the knee amputation), 2+: Radial (L), Radial (R), Dorsalis Pedis (R) Skin: Ecchymosis (Mild) Wound/Incisions: Healing Well, No Drainage, Erythema (As above), Erythema Improving (As above) Neurological: No New Focal Deficit, Other (Stable moderate to severe confusion secondary to organic brain syndrome. Patient is alert.) Psy/Mental Status: Alert, Normal Affect, Normal Mood EKG INTERPRETATION EKG Date: 01/03/19 Time: 07:35 Rhythm: Other (100% paced rhythm) Rate (Beats/Min): 60 Comparison: Change From Previous EKG (Conversion back to 100% paced rhythm since 12/30/18) EKG Interpretation Comments: 1. No acute ischemic changes 2. 100% paced rhythm - Problem List & Annotations (1) Pneumonia SNOMED Code(s): 513274533 Code(s): J18.9 - PNEUMONIA, UNSPECIFIED ORGANISM Status: Acute Priority: High Current Visit: Yes Onset Date: ~12/29/18 Qualifiers: Pneumonia type: due to unspecified organism Laterality: right Lung location: upper lobe of lung Qualified Code(s): J18.1 - Lobar pneumonia, unspecified organism Annotation/Comment:: IV Rocephin therapy initiated in the emergency room. Blood cultures 2 were collected. Additional IV Levaquin therapy also initiated soon after admission, however this was subsequently discontinued secondary to patient 's normal WBCs and culture and sensitivity results of her urine. Attempt to obtain sputum for culture and sensitivity, which still needs to be obtained. Continue current nebulizer therapy. (2) COPD (chronic obstructive pulmonary disease) SNOMED Code(s): 13434870 Code(s): J44.9 - CHRONIC OBSTRUCTIVE PULMONARY DISEASE, UNSPECIFIED Status : Chronic Priority: High Current Visit: Yes Qualifiers: COPD type: COPD with acute lower respiratory infection Qualified Code(s): J44.0 - Chronic obstructive pulmonary disease with acute lower respiratory infection Annotation/Comment:: Continue aggressive nebulizer therapy. Otherwise as above. Triple nebulizer treatment performed shortly after patient's arrival to this facility. Symptoms and clinical findings improved prior to admission and during this hospitalization. (3) CHF (congestive heart failure) SNOMED Code(s): 20370933 Code(s): I50.9 - HEART FAILURE, UNSPECIFIED Status: Chronic Priority: High Current Visit: Yes Onset Date: 11/18/15 Qualifiers: Heart failure type: unspecified Heart failure chronicity: acute on chronic Qualified Code(s): I50.9 - Heart failure, unspecified Annotation/Comment:: BNP slowly improving with persistent mild hyperkalemia. IV Lasix therapy will be increased today. BNP significantly increased on 01/02 possibly secondary to progression of her renal insufficiency. Note that her morning IV Lasix was held on 01/01 with significant hyperkalemia on 01/01. Initiate Kayexalate therapy on 01/02 is to be discontinued at this time. IV Lasix therapy as above and continued lisinopril for now with potassium supplementation discontinued on 01/02. Extended stay required secondary to multiple complications , including refractory CHF, progressive renal insufficiency, etc. No apparent chest pain or anginal complaints, although the patient is somewhat poor historian. Cardiology consultation and further workup depending on her clinical course, however note NO CODE STATUS. Prognosis extremely guarded. (4) D-dimer, elevated SNOMED Code(s): 472719382 Code(s): R79.89 - OTHER SPECIFIED ABNORMAL FINDINGS OF BLOOD CHEMISTRY Status: Acute Priority: High Current Visit: No Onset Date: 12/30/18 Annotation/Comment:: Progressive d-dimer elevation and 01/03 with still no evidence of a DVT or PE. CTA of the chest results on admission was suboptimal secondary to respiratory motion artifacts. Possible right upper lobe pulmonary infarction versus pneumonia. High-dose subcutaneous Lovenox therapy initiated on admission, however this was discontinued and 01/02 secondary to patient's progressive anemia. Venous Doppler studies of the lower extremities were conducted on 01/02 with no evidence of DVT. Repeat d-dimer in the a.m. (5) Dementia SNOMED Code(s): 45388774 Code(s): F03.90 - UNSPECIFIED DEMENTIA WITHOUT BEHAVIORAL DISTURBANCE Status: Chronic Priority: Medium Current Visit: Yes Qualifiers: Dementia type: unspecified type Dementia behavioral disturbance: without behavioral disturbance Qualified Code(s): F03.90 - Unspecified dementia without behavioral disturbance Annotation/Comment:: Stable by history and during this hospitalization, although the patient did become more alert during later phases of this hospitalization. (6) Hypertension SNOMED Code(s): 56590898 Code(s): I10 - ESSENTIAL (PRIMARY) HYPERTENSION Status: Chronic Priority : Medium Current Visit: Yes Qualifiers: Hypertension type: essential hypertension Qualified Code(s): I10 - Essential (primary) hypertension Annotation/Comment:: Somewhat decreased blood pressures during this hospitalization with multiple medication adjustments required including holding one of her doses of Lasix. Blood pressure improved today with lowest blood pressure of 81/48 during this hospitalization. Patient somewhat hypotensive prior to arrival with systolic blood pressures in the 90s. Improved blood pressures with respiratory treatment in the emergency room. Continue to observe closely especially in light of IV Lasix therapy, etc. (7) IDDM (insulin dependent diabetes mellitus) SNOMED Code(s): 67252110 Code(s): E11.9 - TYPE 2 DIABETES MELLITUS WITHOUT COMPLICATIONS; Z79.4 - SENIOR LIVING (CURRENT) USE OF INSULIN Status: Chronic Priority: Medium Current Visit: No Annotation/Comment:: Accu-Cheks currently in the with sliding scale in effect. Initiated 4 times a day Accu-Cheks and sliding scale on admission with this to be decreased to a twice a day, before meals, regimen secondary to sugars under good control at this time. No hypoglycemic episodes. (8) Mixed anxiety and depressive disorder SNOMED Code(s): 263959463 Code(s): F41.8 - OTHER SPECIFIED ANXIETY DISORDERS Status: Chronic Priority: Medium Current Visit: No Annotation/Comment:: Stable by history and during this hospitalization with significant multiple medications at this time, which were previously ordered by her regular provider, however no sedation or sequelae. Continue to observe closely secondary to her progressive renal insufficiency, which is improved on 01/03. (9) Osteoarthritis SNOMED Code(s): 927488896 Code(s): M19.90 - UNSPECIFIED OSTEOARTHRITIS, UNSPECIFIED SITE Status: Chronic Priority: Medium Current Visit: Yes Qualifiers: Osteoarthritis location: multiple joints Osteoarthritis type: primary Qualified Code(s): M15.0 - Primary generalized (osteo)arthritis Annotation/Comment:: Stable by history and during this hospitalization. (10) Peptic reflux disease SNOMED Code(s): 485598984 Code(s): K21.9 - GASTRO-ESOPHAGEAL REFLUX DISEASE WITHOUT ESOPHAGITIS Status: Chronic Priority: Medium Current Visit: No Annotation/Comment:: Stable hemoglobin today. Note progressive anemia with hemoglobin of 10.9 on 01/02 in comparison to 12.0 earlier in this hospitalization. Her Prilosec was increased to twice a day regimen on 01/02 with discontinuation of Lovenox as above. No abdominal pain or evidence of GI bleed. Attempt to obtain Hemoccult with no bowel movement to this point during this hospitalization. Continue to observe closely and stable by history and currently nonsymptomatic with progressive anemia possibly secondary to her worsening renal function. (11) Renal insufficiency SNOMED Code(s): 176046686, 198678868 Code(s): N28.9 - DISORDER OF KIDNEY AND URETER, UNSPECIFIED Status: Chronic Priority: Medium Current Visit: No Annotation/Comment:: As above. Improved creatinine today. Observe her Diabetic nephropathy closely especially in light of IV Lasix therapy. (12) Cellulitis SNOMED Code(s): 140933872 Code(s): L03.90 - CELLULITIS, UNSPECIFIED Status: Acute Priority: High Current Visit: Yes Onset Date: ~12/30/18 Qualifiers: Site of cellulitis: extremity Site of cellulitis of extremity: lower extremity Laterality: left Qualified Code(s): L03.116 - Cellulitis of left lower limb Annotation/Comment:: Stable during this hospitalization with occasional mild improvement. Continue IV antibiotic therapy as above. No drainage for collection of specimen for culture and sensitivity. (13) Hypoalbuminemia SNOMED Code(s): 353518095 Code(s): E88.09 - H DISORDERS OF PLASMA-PROTEIN METABOLISM, NEC Status: Acute Priority: Medium Current Visit: Yes Annotation/Comment:: Observe for now. Consider high-protein Glucerna supplements as snacks at discharge (14) Need for comfort care SNOMED Code(s): 602562951, 512178348 Code(s): KUR3750 - Status: Acute Priority: High Current Visit: Yes Annotation/Comment:: Prognosis Guarded. Continue comfort care. (15) Hypomagnesemia SNOMED Code(s): 586175742 Code(s): E83.42 - HYPOMAGNESEMIA Status: Chronic Priority: Medium Current Visit: Yes Annotation/Comment:: Magnesium oxide supplementation increased on admission with repeat magnesium level on 01/03 normal. (16) Anemia SNOMED Code(s): 720894797 Code(s): D64.9 - ANEMIA, UNSPECIFIED Status: Acute Priority: High Current Visit: Yes Onset Date: 01/02/19 Qualifiers: Anemia type: due to chronic kidney disease Chronic kidney disease stage: stage 4 (severe) Qualified Code(s): N18.4 - Chronic kidney disease, stage 4 ( severe); D63.1 - Anemia in chronic kidney disease Annotation/Comment:: As above (17) UTI (urinary tract infection) SNOMED Code(s): 39254007 Code(s): N39.0 - URINARY TRACT INFECTION, SITE NOT SPECIFIED Status: Acute Priority: High Current Visit: Yes Onset Date: ~01/01/19 Qualifiers: Urinary tract infection type: acute cystitis Hematuria presence: without hematuria Qualified Code(s): N30.00 - Acute cystitis without hematuria Annotation/Comment:: Continue IV Rocephin as above. Urine culture and sensitivity report reviewed. (18) Hyperkalemia SNOMED Code(s): 95258694 Code(s): E87.5 - HYPERKALEMIA Status: Acute Priority: High Current Visit: Yes Onset Date: 01/02/19 Annotation/Comment:: As above (19) Hyperphosphatemia SNOMED Code(s): 78557645 Code(s): E83.39 - OTHER DISORDERS OF PHOSPHORUS METABOLISM Status: Acute Priority: Medium Current Visit: Yes Onset Date: 01/03/19 Annotation/ Comment:: Initiate low-dose PhosLo for now with close follow-up on an outpatient basis by his regular providers. - Problem List Review Problem List Initiated/Reviewed/Updated: Yes - My Orders Last 24 Hours: My Active Orders 01/02/19 08:45 Sodium Polystyrene Sulfonate [Kayexalate] 15 gm PO BID 01/02/19 09:12 Cardiac Monitoring [RC] Q2HR 01/02/19 17:30 Insulin Lispro [HumaLOG] See Protocol SUBCUT BIDAC Omeprazole 20 mg PO BIDAC 01/03/19 05:11 EKG Documentation Completion [RC] ASDIRECTED Chest 1V Frontal [CR] Routine Chest 2V [CR] Routine EKG 12 Lead [EK] Routine 01/03/19 07:30 BASIC METABOLIC PANEL,BMP [CHEM] Routine D-DIMER QUANTITATIVE [COAG] Routine MAGNESIUM [CHEM] Routine PHOSPHORUS [CHEM] Routine PRO B-TYPE NATRIUR PEPT,BNPPRO [CHEM] Routine - Assessment Assessment:: As above - Plan Plan:: As above. Extensive precautions were given to the patient, who is in agreement with the treatment plan. Extended hospitalization likely required as above. Planned discharge patient back to the halfway within the next 1-2 days. Dario Mead M.D. at the [facility] was updated today and will assume care in the a.m. secondary to medication.
[2019-01-03] MEDS: Sodium Chloride 0.9% 10 ML Syringe FLUSH SCH ×2 (09:05→21:26)
[2019-01-03] MEDS: Calcium Acetate 667 MG Cap PO SCH ×2 (12:06→17:17)
[2019-01-03] MEDS: Insulin Glarg,Human.Rec.Analog 100 UNIT/ML ML SUBCUT SCH (20:11)
[2019-01-03] MEDS: Amitriptyline 25 MG Tab PO SCH (20:11)
[2019-01-03] MEDS: hydrOXYzine HCl 25 MG Tab PO SCH (20:11)
[2019-01-04] MEDS: Acetaminophen 325 MG Tab PO PRN (04:34)
[2019-01-04] MEDS: Omeprazole 20 MG Cap.CR PO SCH (07:24)
[2019-01-04] MEDS: Mirabegron 25 MG Tab Extended Release PO SCH (07:25)
[2019-01-04] MEDS: Multivitamin Tab PO SCH (07:25)
[2019-01-04] MEDS: Calcium Acetate 667 MG Cap PO SCH (07:26)
[2019-01-04] MEDS: Ascorbic Acid 500 MG Tab PO SCH (07:27)
[2019-01-04] MEDS: Pregabalin 25 MG Cap PO SCH (07:27)
[2019-01-04] MEDS: Lisinopril 10 MG Tab PO SCH (07:34)
[2019-01-04] MEDS: Magnesium Oxide 400 MG Tab PO SCH (07:35)
[2019-01-04] MEDS: Dextromethorphan/guaiFENesin 600-30 MG Tab.ER PO SCH (07:36)
[2019-01-04] MEDS: Ferrous Sulfate 325 MG Tab PO SCH (07:36)
[2019-01-04] MEDS: ALPRAZolam 0.25 MG Tab PO SCH ×3 (07:37→16:54)
[2019-01-04] MEDS: busPIRone 15 MG Tab PO SCH ×2 (07:37→14:14)
[2019-01-04] MEDS: Albuterol/Ipratropium 3.0-0.5 MG/3 ML Neb Soln NEB SCH ×3 (07:41→16:54)
[2019-01-04] MEDS: Budesonide 0.5 MG/2 ML Neb Susp NEB SCH (07:41)
[2019-01-04] MEDS: Sodium Polystyrene Sulfonate 15 GM/60 ML Susp 60 ML Bot PO SCH (07:41)
[2019-01-04] MEDS: cefTRIAXone 1 GM in Sodium Chloride 0.9% 100 ML IV SCH (07:42)
[2019-01-04] MEDS: Furosemide 40 MG/4 ML VIAL IVPUSH SCH ×2 (07:42→11:39)
[2019-01-04] MEDS: Insulin Lispro 100 Units/ML 3 ML Vial SUBCUT SCH ×3 (07:42→11:35)
[2019-01-04] MEDS: Sodium Chloride 0.9% 10 ML Syringe FLUSH PRN (07:46)
[2019-01-04] MEDS: Sodium Chloride 0.9% 10 ML Syringe FLUSH SCH (11:35)
[2019-01-04 16:32] VITALS: BP 148/64
--- NOTE | 2019-01-04 16:38 | PCM.DCSUM1 ---
Discharge Summary - Hospital Course Brief History: Admitted for treatment of fever, cellulitis, and possible pneumonia. [facility] complaints of observed hypoxemia, lower BPs, cough. Diagnosis: Stroke: No - Discharge Data Discharge Date: 01/04/19 Discharge Disposition: DC/Tfer to [facility] 02 Condition: Fair - Discharge Diagnosis/Problem(s) (1) UTI (urinary tract infection) SNOMED Code(s): 99311191 ICD Code: N39.0 - URINARY TRACT INFECTION, SITE NOT SPECIFIED Status: Acute Priority: High Current Visit: Yes Onset Date: ~01/01/19 Problem Details: E.Coli Continue IV Rocephin as above. Urine culture and sensitivity report reviewed. Qualifiers: Urinary tract infection type: acute cystitis Hematuria presence: without hematuria Qualified Code(s): N30.00 - Acute cystitis without hematuria (2) Cellulitis SNOMED Code(s): 157125731 ICD Code: L03.90 - CELLULITIS, UNSPECIFIED Status: Acute Priority: High Current Visit: Yes Onset Date: ~12/30/18 Problem Details: Minimal change. No drainage for collection of specimen for culture and sensitivity. IV Rocephin therapy. + for MRSA/nasal culture. Qualifiers: Site of cellulitis: extremity Site of cellulitis of extremity: lower extremity Laterality: left Qualified Code(s): L03.116 - Cellulitis of left lower limb (3) Hyperkalemia SNOMED Code(s): 23624546 ICD Code: E87.5 - HYPERKALEMIA Status: Acute Priority: High Current Visit: Yes Onset Date: 01/02/19 Problem Details: Improved (4) Pneumonia SNOMED Code(s): 553122730 ICD Code: J18.9 - PNEUMONIA, UNSPECIFIED ORGANISM Status: Acute Priority : High Current Visit: Yes Onset Date: ~12/29/18 Problem Details: Questionable presence of pneumonia based on changes observed via CT right upper lobe. Some hypoxia noted during initial evaluation. Differential includes PE in right upper lobe, motion during study limited accuracy of exam. IV Rocephin therapy initiated in the emergency room. Blood cultures 2 were collected, currently no growth noted. Additional IV Levaquin therapy also initiated soon after admission, however this was subsequently discontinued secondary to patient 's normal WBCs and culture and sensitivity results of her urine. Qualifiers: Pneumonia type: due to unspecified organism Laterality: right Lung location: upper lobe of lung Qualified Code(s): J18.1 - Lobar pneumonia, unspecified organism (5) Hypoalbuminemia SNOMED Code(s): 845402862 ICD Code: E88.09 - OTH DISORDERS OF PLASMA-PROTEIN METABOLISM, NEC Status: Chronic Priority: Medium Current Visit: Yes Problem Details: Observed for change (6) Need for comfort care SNOMED Code(s): 548965193, 126890912 ICD Code: [id number] - Status: Chronic Priority: High Current Visit: Yes Problem Details: Prognosis Guarded. Continue comfort care. (7) CHF (congestive heart failure) SNOMED Code(s): 90560740 ICD Code: I50.9 - HEART FAILURE, UNSPECIFIED Status: Chronic Priority: High Current Visit: Yes Onset Date: 11/18/15 Problem Details: BNP continues to be elevated. Qualifiers: Heart failure type: unspecified Heart failure chronicity: acute on chronic Qualified Code(s): I50.9 - Heart failure, unspecified (8) COPD (chronic obstructive pulmonary disease) SNOMED Code(s): 31857609 ICD Code: J44.9 - CHRONIC OBSTRUCTIVE PULMONARY DISEASE, UNSPECIFIED Status : Chronic Priority: High Current Visit: Yes Problem Details: History of smoking. Nebulizer therapy during inpatient stay Qualifiers: COPD type: COPD with acute lower respiratory infection Qualified Code(s): J44.0 - Chronic obstructive pulmonary disease with acute lower respiratory infection (9) Dementia SNOMED Code(s): 77836180 ICD Code: F03.90 - UNSPECIFIED DEMENTIA WITHOUT BEHAVIORAL DISTURBANCE Status: Chronic Priority: Medium Current Visit: Yes Problem Details: Stable by history and during this hospitalization, although the patient did become more alert during later phases of this hospitalization. Qualifiers: Dementia type: unspecified type Dementia behavioral disturbance: without behavioral disturbance Qualified Code(s): F03.90 - Unspecified dementia without behavioral disturbance (10) Hypertension SNOMED Code(s): 59843052 ICD Code: I10 - ESSENTIAL (PRIMARY) HYPERTENSION Status: Chronic Priority : Medium Current Visit: Yes Problem Details: Somewhat decreased blood pressures during this hospitalization with multiple medication adjustments required including holding one of her doses of Lasix. Blood pressure improved overall. Qualifiers: Hypertension type: essential hypertension Qualified Code(s): I10 - Essential (primary) hypertension (11) Hypomagnesemia SNOMED Code(s): 145342315 ICD Code: E83.42 - HYPOMAGNESEMIA Status: Chronic Priority: Medium Current Visit: Yes Problem Details: Magnesium oxide supplementation increased on admission with repeat magnesium level on 01/03 normal. (12) Osteoarthritis SNOMED Code(s): 878906024 ICD Code: M19.90 - UNSPECIFIED OSTEOARTHRITIS, UNSPECIFIED SITE Status: Chronic Priority: Medium Current Visit: Yes Problem Details: Stable by history and during this hospitalization. Qualifiers: Osteoarthritis location: multiple joints Osteoarthritis type: primary Qualified Code(s): M15.0 - Primary generalized (osteo)arthritis (13) D-dimer, elevated SNOMED Code(s): 635054985 ICD Code: R79.89 - OTHER SPECIFIED ABNORMAL FINDINGS OF BLOOD CHEMISTRY Status: Acute Priority: High Current Visit: No Onset Date: 12/30/18 Problem Details: Progressive d-dimer elevation and 01/03 with still no evidence of a DVT or PE. CTA of the chest results on admission was suboptimal secondary to respiratory motion artifacts. Possible right upper lobe pulmonary infarction versus pneumonia. High-dose subcutaneous Lovenox therapy initiated on admission , however this was discontinued and 01/02 secondary to patient's progressive anemia. 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 Initiated 4 times a day Accu-Cheks and sliding scale on admission with this to be decreased to a twice a day, before meals, regimen secondary to sugars under good control at this time. No hypoglycemic episodes. (16) Mixed anxiety and depressive disorder SNOMED Code(s): 090646732 ICD Code: F41.8 - OTHER SPECIFIED ANXIETY DISORDERS Status: Chronic Priority: Medium Current Visit: No Problem Details: Stable by history and during this hospitalization with significant multiple medications at this time, which were previously ordered by her regular provider, however no sedation or sequelae. (17) Peptic reflux disease SNOMED Code(s): 855468079 ICD Code: K21.9 - GASTRO-ESOPHAGEAL REFLUX DISEASE WITHOUT ESOPHAGITIS Status: Chronic Priority: Medium Current Visit: No Problem Details: Stable hemoglobin today. Note progressive anemia with hemoglobin of 10.9 on 01/02 in comparison to 12.0 earlier in this hospitalization. Her Prilosec was increased to twice a day regimen on 01/02 with discontinuation of Lovenox as above. No abdominal pain or evidence of GI bleed. Attempt to obtain Hemoccult with no bowel movement to this point during this hospitalization. Continue to observe closely and stable by history and currently nonsymptomatic with progressive anemia possibly secondary to her worsening renal function. (18) Renal insufficiency SNOMED Code(s): 745283280, 738247192 ICD Code: N28.9 - DISORDER OF KIDNEY AND URETER, UNSPECIFIED Status: Chronic Priority: Medium Current Visit: No Problem Details: Improved overall (19) MRSA (methicillin resistant staph aureus) culture positive SNOMED Code(s): 158785442 ICD Code: Z22.322 - CARRIER OR SUSPECTED CARRIER OF METHICILLIN RESIS STAPH Status: Acute Priority: Medium Current Visit: Yes - Patient Summary/Data Consults: Consultations 01/01/19 19:06 Consult to Speech Language Pathology [SOFTWARE QUALITY ANALYST Evaluation and Treatment] [CONS] Routine Hospital Course: Patient treated with Rocephin IV for UTI/cellulitis. Questionable pneumonia vs PE on CT that was performed secondary to elevated DDimer and lower O2 sats. Started on Lovenox, discontinued due to anemia concerns. Patient had multiple chronic issues, including dementia, CHF, renal insufficiency, elevated K, in addition to above concerns. Inpatient stay at facility for 5 days. Transfer to [place]/higher level of care arranged as Ddimer remained elevated, sodium noted to drop, and WBC noted to increase this day of hospitalization. 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 - Discharge Plan *PRESCRIPTION DRUG MONITORING PROGRAM REVIEWED*: Not Applicable *COPY OF PRESCRIPTION DRUG MONITORING REPORT IN PATIENT CIARRA: Not Applicable Home Medications: Home Meds Lisinopril 10 mg PO DAILY 11/18/15 [History] Pregabalin [Lyrica] 100 mg PO BID@,20 11/18/15 [History] ALPRAZolam [Xanax] 0.5 mg PO TID@,12,12/19/16 [History] Acetaminophen 650 mg PO Q6HR PRN 12/19/16 [History] Acetaminophen/HYDROcodone [[place] 325-5 MG] 1 tab PO BID PRN 12/19/16 [History] Albuterol/Ipratropium [DuoNeb 3.0-0.5 MG/3 ML] 3 ml NEB Q6HRRT PRN 12/19/16 [ History] Insulin Aspart [NovoLOG] 25 unit SUBCUT TID@,,12/19/16 [History] Loperamide HCl [Imodium A-D] 2 mg PO QID PRN 12/19/16 [History] Magnesium Oxide 400 mg PO DAILY 12/19/16 [History] Multivitamin [Multi-Day Vitamins] 1 each PO DAILY 12/19/16 [History] Polyethylene Glycol 3350 [MiraLAX] 17 gm PO DAILY PRN 12/19/16 [History] Ranitidine HCl [Zantac 75] 75 mg PO BID@,12/19/16 [History] busPIRone HCl [Buspirone HCl] 7.5 mg PO TID@,,12/19/16 [History] Acetaminophen [Tylenol] 650 mg PO Q12HR 01/18/18 [History] Insulin Detemir [Levemir] 55 unit SUBCUT BEDTIME 01/18/18 [History] hydrOXYzine HCl [hydrOXYzine] 25 mg PO BEDTIME 01/18/18 [History] Cyanocobalamin (Vitamin B-12) [B-12] 1,000 mcg PO DAILY 05/18/18 [History] Ferrous Sulfate 325 mg PO DAILY 05/18/18 [History] Mirabegron [Myrbetriq] 25 mg PO DAILY 05/18/18 [History] Umeclidinium Brm/Vilanterol Tr [Anoro Ellipta 62.5-25 MCG] 1 inh INH DAILY 05/18 [History] Amitriptyline [Elavil] 25 mg PO BEDTIME 12/30/18 [History] Ascorbic Acid 500 mg PO DAILY 12/30/18 [History] Azithromycin 500 mg PO DAILY@1600 12/30/18 [History] Dextromethorphan/guaiFENesin [Robitussin DM] 10 ml PO BEDTIME PRN 12/30/18 [ History] Ipratropium/Albuterol Sulfate [Iprat-Albut 0.5-3(2.5) MG/3 ML] 3 ml IH QID 12/30 [History] Ipratropium/Albuterol Sulfate [Iprat-Albut 0.5-3(2.5) mg/3 ml] 3 ml IH BEDTIME PRN 12/30/18 [History] Mag Hydrox/Aluminum Hyd/Simeth [Antacid Liquid] 5 ml PO Q4H PRN 12/30/18 [ History] Methyl Salicylate/Menthol [Salonpas Patch] 1 each TP BID PRN 12/30/18 [History] guaiFENesin [Diabetic Tussin EX] 200 mg PO Q6H PRN 12/30/18 [History] Forms: ED Department Discharge Referrals: Vinnie Ocampo MD [Primary Care Provider] - - Discharge Summary/Plan Comment DC Time >30 min.: Yes (waiting for bed to open at [place] and will need EMS transport available) - General Info Date of Service: 01/04/19 Admission Dx/Problem (Free Text: 1. CHF 2. Pneumonia 3. Cellulitis Subjective Update: Patient states she feels well and has no acute complaints when prompted with ROS. Functional Status: Reports: Pain Controlled, Tolerating Diet. Denies: New Symptoms - Review of Systems General: Denies: Fever, Fatigue, Chills HEENT: Reports: No Symptoms Pulmonary: Denies: Pleuritic Chest Pain, Cough, Sputum, Hemoptysis, Wheezing Cardiovascular: Denies: Chest Pain, Palpitations, Lightheadedness Gastrointestinal: Reports: Diarrhea. Denies: Abdominal Pain, Constipation, Decreased Appetite, Nausea, Vomiting Genitourinary: Reports: No Symptoms Musculoskeletal: Reports: No Symptoms Skin: Reports: No Symptoms Neurological: Reports: Other (chronic baseline confusion) Psychiatric: Denies: Anxiety, Agitation, Hallucinations, Suicidal Ideation, Homicidal Ideation - Patient Data Vitals - Most Recent: Last Vital Signs Temp 36.3 C 01/04/19 12:00 Pulse 78 01/04/19 12:00 Resp 18 01/04/19 12:00 BP 133/52 L 01/04/19 12:00 Pulse Ox 90 L 01/04/19 12:00 Weight - Most Recent: 94.801 kg I&O - Last 24 hours: Intake & Output 01/04/19 01/04/19 01/04/19 06:59 14:59 22:59 Intake Total 100 300 Balance 100 300 Lab Results - Last 24 hrs: Laboratory Results - last 24 hr 01/03/19 01/04/19 01/04/19 Range/Units 16:42 07:05 07:05 WBC 11.9 H (4.0-10.2) K/uL RBC 3.22 L (3.77-5.09) M/uL Hgb 10.8 L (11.7-15.5) g/dL Hct 32.9 L (34.0-46.0) % MCV 102.2 H (84.0-98.0) fL MCH 33.5 H (28.2-33.3) pg MCHC 32.8 (31.7-36.0) g/dL RDW 12.4 (11.2-14.1) % Plt Count 208 (150-350) K/uL Neut % (Auto) 79.6 (45.0-80.0) % Lymph % (Auto) 9.1 L (10.0-50.0) % [place] % (Auto) 10.7 (2.0-14.0) % Eos % (Auto) 0.3 (0.0-5.0) % Baso % (Auto) 0.3 (0.0-2.0) % Neut # (Auto) 9.49 H (1.40-7.00) K/uL Lymph # (Auto) 1.09 (0.50-3.50) K/uL [place] # (Auto) 1.28 H (0.00-1.00) K/uL Eos # (Auto) 0.03 (0.00-0.50) K/uL Baso # (Auto) 0.03 (0.00-0.20) K/uL D-Dimer, Quantitative 1310 H (0-400) ng/mL Sodium (136-145) mmol/L Potassium (3.5-5.1) mmol/L Chloride (98-107) mmol/L Carbon Dioxide (21.0-32.0) mmol/L BUN (7-18) mg/dL Creatinine (0.51-1.17) mg/dL Est Cr Clr Drug Dosing mL/min Estimated GFR (MDRD) mL/min Glucose (74-106) mg/dL POC Glucose 260 H* (65-110) mg/dl Calcium (8.5-10.1) mg/dL Creatine Kinase (26-308) U/L Creatine Kinase Index (0.0-2.5) % CK-MB (CK-2) (0.00-3.60) ng/mL Troponin I (0.000-0.056) ng/mL NT-Pro-B Natriuret Pep (0-125) pg/mL 01/04/19 01/04/19 01/04/19 Range/Units 07:05 07:21 11:33 WBC (4.0-10.2) K/uL RBC (3.77-5.09) M/uL Hgb (11.7-15.5) g/dL Hct (34.0-46.0) % MCV (84.0-98.0) fL MCH (28.2-33.3) pg MCHC (31.7-36.0) g/dL RDW (11.2-14.1) % Plt Count (150-350) K/uL Neut % (Auto) (45.0-80.0) % Lymph % (Auto) (10.0-50.0) % [place] % (Auto) (2.0-14.0) % Eos % (Auto) (0.0-5.0) % Baso % (Auto) (0.0-2.0) % Neut # (Auto) (1.40-7.00) K/uL Lymph # (Auto) (0.50-3.50) K/uL [place] # (Auto) (0.00-1.00) K/uL Eos # (Auto) (0.00-0.50) K/uL Baso # (Auto) (0.00-0.20) K/uL D-Dimer, Quantitative (0-400) ng/mL Sodium 128 L (136-145) mmol/L Potassium 4.8 (3.5-5.1) mmol/L Chloride 93 L (98-107) mmol/L Carbon Dioxide 23.1 (21.0-32.0) mmol/L BUN 43 H (7-18) mg/dL Creatinine 1.44 H (0.51-1.17) mg/dL Est Cr Clr Drug Dosing 28.71 mL/min Estimated GFR (MDRD) 35 mL/min Glucose 314 H (74-106) mg/dL POC Glucose 359 H* 321 H* (65-110) mg/dl Calcium 8.9 (8.5-10.1) mg/dL Creatine Kinase 117 (26-308) U/L Creatine Kinase Index 0.6 (0.0-2.5) % CK-MB (CK-2) 0.70 (0.00-3.60) ng/mL Troponin I 0.000 (0.000-0.056) ng/mL NT-Pro-B Natriuret Pep 922 H (0-125) pg/mL JESÚS Results - Last 24 hrs: Microbiology 12/30/18 23:52 MRSA (PCR) - Final Nasal, Unspecified 12/30/18 19:20 Aerobic Blood Culture - Preliminary Blood - Venous - Lab Draw NO GROWTH AFTER 4 DAYS Anaerobic Blood Culture - Preliminary NO GROWTH AFTER 4 DAYS 12/30/18 19:10 Aerobic Blood Culture - Preliminary Blood - Venous NO GROWTH AFTER 4 DAYS Anaerobic Blood Culture - Preliminary NO GROWTH AFTER 4 DAYS Med Orders - Current: Current Medications Acetaminophen (Tylenol) 650 mg PO Q4H PRN PRN Reason: Pain/Fever Last Admin: 01/04/19 04:34 Dose: 650 mg Al Hydroxide/Mg Hydroxide (Mag-Al Plus) 5 ml PO Q4H PRN PRN Reason: gi distress Albuterol (Proventil Neb Soln) 2.5 mg NEB Q2H PRN PRN Reason: Dyspnea Albuterol/Ipratropium (Duoneb 3.0-0.5 Mg/3 Ml) 3 ml NEB Q4HRRT PRN PRN Reason: Dyspnea Last Admin: 12/31/18 00:19 Dose: 3 ml Albuterol/Ipratropium (Duoneb 3.0-0.5 Mg/3 Ml) 3 ml NEB QID EVANGELINA Last Admin: 01/04/19 11:35 Dose: 3 ml Alprazolam (Xanax) 0.5 mg PO TID@08,12,16 [facility] Last Admin: 01/04/19 11:38 Dose: 0.5 mg Amitriptyline HCl (Elavil) 25 mg PO BEDTIME [facility] Last Admin: 01/03/19 20:11 Dose: 25 mg Ascorbic Acid (Vitamin C) 500 mg PO DAILY [facility] Last Admin: 01/04/19 07:27 Dose: 500 mg Budesonide (Pulmicort) 0.5 mg NEB BIDRT [facility] Last Admin: 01/04/19 07:41 Dose: 0.5 mg Buspirone HCl (Buspar) 7.5 mg PO TID@08,14,20 [facility] Last Admin: 01/04/19 14:14 Dose: 7.5 mg Calcium Acetate (Phoslo) 667 mg PO BIDMEALS [facility] Last Admin: 01/04/19 07:26 Dose: 667 mg Ferrous Sulfate (Ferrous Sulfate) 325 mg PO DAILY [facility] Last Admin: 01/04/19 07:36 Dose: 325 mg Furosemide (Lasix) 40 mg IVPUSH TID [facility] Last Admin: 01/04/19 11:39 Dose: 40 mg Guaifenesin/Dextromethorphan (Mucinex Dm Er 600-30 Mg) 1 tab PO BID [facility] Last Admin: 01/04/19 07:36 Dose: 1 tab Hydroxyzine HCl (Atarax) 25 mg PO BEDTIME [facility] Last Admin: 01/03/19 20:11 Dose: 25 mg Ceftriaxone Sodium 1 gm/ (Sodium Chloride) 100 mls @ 200 mls/hr IV Q12H [facility] Last Admin: 01/04/19 07:42 Dose: 200 mls/hr Insulin Glargine (Lantus) 55 unit SUBCUT BEDTIME [facility] Last Admin: 01/03/19 20:11 Dose: 55 units Insulin Human Lispro (Humalog) 25 unit SUBCUT TID@,12,17 [facility] Last Admin: 01/04/19 11:35 Dose: 25 units Insulin Human Lispro (Humalog) 0 unit SUBCUT BIDAC [facility]; Protocol Last Admin: 01/04/19 07:44 Dose: 10 units Lisinopril (Prinivil) 10 mg PO DAILY [facility] Last Admin: 01/04/19 07:34 Dose: 10 mg Loperamide HCl (Imodium Ad) 2 mg PO QID PRN PRN Reason: Diarrhea Magnesium Oxide (Magnesium Oxide) 400 mg PO BID [facility] Last Admin: 01/04/19 07:35 Dose: 400 mg Mirabegron (Myrbetriq) 25 mg PO DAILY [facility] Last Admin: 01/04/19 07:25 Dose: 25 mg Multivitamins/Minerals/Vitamin C (Tab-A-Jessie) 1 tab PO DAILY [facility] Last Admin: 01/04/19 07:25 Dose: 1 tab Non-Formulary Medication (Methyl Salicylate/Menthol [Salonpas Patch]) 1 each TP BID PRN PRN Reason: Pain Omeprazole (Omeprazole) 20 mg PO BIDAC [facility] Last Admin: 01/04/19 07:24 Dose: 20 mg Polyethylene Glycol (Miralax) 17 gm PO DAILY PRN PRN Reason: Constipation Last Admin: 01/02/19 07:44 Dose: 17 gm Pregabalin (Lyrica) 100 mg PO BID@08,20 [facility] Last Admin: 01/04/19 07:27 Dose: 100 mg Sodium Chloride (Saline Flush) 10 ml FLUSH ASDIRECTED PRN PRN Reason: Keep Vein Open Last Admin: 01/04/19 07:46 Dose: 10 ml Sodium Chloride (Saline Flush) 10 ml FLUSH Q12H [facility] Last Admin: 01/04/19 11:35 Dose: 10 ml Sodium Polystyrene Sulfonate (Kayexalate) 15 gm PO BID [facility] Last Admin: 01/04/19 07:41 Dose: 15 gm Discontinued Medications Albuterol/Ipratropium (Duoneb 3.0-0.5 Mg/3 Ml) 3 ml NEB ONETIME ONE Stop: 12/30/18 18:41 Last Admin: 12/30/18 19:06 Dose: 3 ml Albuterol/Ipratropium (Duoneb 3.0-0.5 Mg/3 Ml) 3 ml NEB Q6HRRT [facility] Last Admin: 12/31/18 19:15 Dose: 3 ml Budesonide (Pulmicort) 0.5 mg NEB ONETIME ONE Stop: 12/30/18 18:41 Last Admin: 12/30/18 19:06 Dose: 0.5 mg Enoxaparin Sodium (Lovenox) 100 mg SUBCUT Q24H [facility] Last Admin: 12/31/18 00:05 Dose: 100 mg Enoxaparin Sodium (Lovenox) 100 mg SUBCUT BEDTIME [facility] Last Admin: 01/01/19 19:15 Dose: 100 mg Furosemide (Lasix) 40 mg IVPUSH Q12H [facility] Last Admin: 12/31/18 11:49 Dose: Not Given Furosemide (Lasix) 40 mg IVPUSH BID@08,14 [facility] Last Admin: 01/03/19 07:35 Dose: 40 mg Ceftriaxone Sodium 1 gm/ (Sodium Chloride) 100 mls @ 200 mls/hr IV ONETIME ONE Stop: 12/30/18 20:20 Last Admin: 12/30/18 20:03 Dose: 200 mls/hr Levofloxacin/Dextrose 500 mg/ (Premix) 100 mls @ 100 mls/hr IV Q24H [facility] Last Admin: 01/01/19 20:55 Dose: 100 mls/hr Insulin Human Lispro (Humalog) 0 unit SUBCUT QIDACANDBED [facility]; Protocol Last Admin: 01/02/19 07:34 Dose: 2 units Insulin Human Lispro (Humalog) 12.5 unit SUBCUT ONETIME ONE Stop: 01/02/19 12:01 Last Admin: 01/02/19 13:26 Dose: 12.5 units Iopamidol (Isovue-370 (76%)) 100 ml IVPUSH ONETIME ONE Stop: 12/30/18 20:10 Last Admin: 12/30/18 20:59 Dose: 100 ml Omeprazole (Omeprazole) 20 mg PO DAILY [facility] Last Admin: 01/02/19 07:47 Dose: 20 mg Potassium Chloride (Klor-Con M20) 20 meq PO BID [facility] Last Admin: 01/02/19 07:47 Dose: 20 meq - Exam General: Reports: Alert, Cooperative, No Acute Distress. Denies: Oriented HEENT: Reports: Pupils Equal, Pupils Reactive, EOMI, Mucous Membr. Moist/[place] Neck: Reports: Supple Lungs: Reports: Clear to Auscultation, Normal Respiratory Effort Cardiovascular: Reports: Regular Rate, Regular Rhythm GI/Abdominal Exam: Normal Bowel Sounds, Soft, Non-Tender, No Distention (Female) Exam: Deferred Rectal (Female) Exam: Deferred Back Exam: Denies: CVA Tenderness (L), CVA Tenderness (R), Muscle Spasm, Paraspinal Tenderness, Vertebral Tenderness Extremities: Non-Tender, Normal Capillary Refill Skin: Reports: Warm, Dry Neurological: Reports: No New Focal Deficit Psy/Mental Status: Reports: Alert, Normal Affect, Normal Mood
== END 2019-01-04 17:30 | DRG 190 ==
LOC: LL.ED 18:33 → LL.MS 20:19
PROVIDERS: ADMIT Family Medicine; ATTEND Family Medicine
DX: J44.0 Chronic obstructive pulmonary disease with (acute) lower respiratory infection (principal); J18.1 Lobar pneumonia, unspecified organism; J44.1 Chronic obstructive pulmonary disease with (acute) exacerbation; J18.9 Pneumonia, unspecified organism; N18.4 Chronic kidney disease, stage 4 (severe); N30.00 Acute cystitis without hematuria; L03.116 Cellulitis of left lower limb; I13.0 Hypertensive heart and chronic kidney disease with heart failure and stage 1 through stage 4 chronic kidney disease, or unspecified chronic kidney disease; Z51.5 Encounter for palliative care; R79.89 Other specified abnormal findings of blood chemistry; M19.90 Unspecified osteoarthritis, unspecified site; I50.9 Heart failure, unspecified; E11.51 Type 2 diabetes mellitus with diabetic peripheral angiopathy without gangrene; G89.29 Other chronic pain; M81.0 Age-related osteoporosis without current pathological fracture; E11.42 Type 2 diabetes mellitus with diabetic polyneuropathy; E66.9 Obesity, unspecified; M54.9 Dorsalgia, unspecified; D63.1 Anemia in chronic kidney disease; E53.8 Deficiency of other specified B group vitamins; F03.90 Unspecified dementia, unspecified severity, without behavioral disturbance, psychotic disturbance, mood disturbance, and anxiety; M15.0 Primary generalized (osteo)arthritis; F41.8 Other specified anxiety disorders; E88.09 Other disorders of plasma-protein metabolism, not elsewhere classified; N18.9 Chronic kidney disease, unspecified; E87.5 Hyperkalemia; E83.39 Other disorders of phosphorus metabolism; Z90.49 Acquired absence of other specified parts of digestive tract; Z89.512 Acquired absence of left leg below knee; E11.22 Type 2 diabetes mellitus with diabetic chronic kidney disease; E08.9 Diabetes mellitus due to underlying condition without complications; E83.42 Hypomagnesemia; K21.9 Gastro-esophageal reflux disease without esophagitis; Z87.891 Personal history of nicotine dependence; H91.90 Unspecified hearing loss, unspecified ear; H54.7 Unspecified visual loss; Z95.0 Presence of cardiac pacemaker; K59.00 Constipation, unspecified; E11.40 Type 2 diabetes mellitus with diabetic neuropathy, unspecified; G30.9 Alzheimer's disease, unspecified; F02.80 Dementia in other diseases classified elsewhere, unspecified severity, without behavioral disturbance, psychotic disturbance, mood disturbance, and anxiety; Z79.4 Long term (current) use of insulin; Z79.899 Other long term (current) drug therapy; Z88.5 Allergy status to narcotic agent; Z88.0 Allergy status to penicillin; Z88.2 Allergy status to sulfonamides
CPT/HCPCS: 36415; 71045; 71275; 80048; 80053; 80061; 81001; 82272; 82550; 82553; 82962; 83036; 83605; 83735; 83880; 84100; 84443; 84484; 85025; 85379; 85610; 85730; 87040; 87086; 87088; 87186; 87641; 87804; 92526-GN; 92610-GN; 93005; 93970; 94640; 94761; 96365; 99285-25; A4217; A9270-GY; J0696; J1650; J1815; J1815-GY; J1940; J1956; J7050; J7620-GY; Q9967

== ENCOUNTER 2019-02-07 14:47 | Emergency (ER) | payer MEDICARE, OTHER, MEDICAID ==
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
[2019-02-07 16:18] VITALS: BP 102/43; PULSE 80
== END 2019-02-07 16:30 ==
LOC: LL.ED 14:47
DX: K92.1 Melena (principal); E87.5 Hyperkalemia; I13.0 Hypertensive heart and chronic kidney disease with heart failure and stage 1 through stage 4 chronic kidney disease, or unspecified chronic kidney disease; I50.9 Heart failure, unspecified; N18.9 Chronic kidney disease, unspecified; E11.22 Type 2 diabetes mellitus with diabetic chronic kidney disease; E11.21 Type 2 diabetes mellitus with diabetic nephropathy; E66.9 Obesity, unspecified; G30.9 Alzheimer's disease, unspecified; M19.90 Unspecified osteoarthritis, unspecified site; D64.9 Anemia, unspecified; E11.40 Type 2 diabetes mellitus with diabetic neuropathy, unspecified; K21.9 Gastro-esophageal reflux disease without esophagitis; Z98.890 Other specified postprocedural states; Z90.49 Acquired absence of other specified parts of digestive tract; Z90.710 Acquired absence of both cervix and uterus; Z79.899 Other long term (current) drug therapy; Z79.4 Long term (current) use of insulin; Z87.891 Personal history of nicotine dependence; Z88.2 Allergy status to sulfonamides; Z88.0 Allergy status to penicillin; Z88.5 Allergy status to narcotic agent
CPT/HCPCS: 36415; 80053; 82272; 85025; 99284; 99285

== ENCOUNTER → 2019-02-09 | Day surgery (SDC) | payer MEDICARE, OTHER, MEDICAID ==
[~2019-02-09] MED LIST: Albuterol/Ipratropium 3.0-0.5 MG/3 ML Neb Soln NEB ONE; Lactated Ringers 1,000 ML IV SCH; Propofol 200 MG/20 ML SDV ONE; Sodium Chloride 0.9% 10 ML Syringe FLUSH PRN
--- NOTE | 2019-02-09 12:57 | PCM.OPNOTE ---
- General Post-Op/Procedure Note Date of Surgery/Procedure: 02/09/19 Operative Procedure(s): EGD with Bx. Colonoscopy Findings: Duodenal Ulcers, Gastritis and Esophagitis Normal Colonoscopy Pre Op Diagnosis: Anemai Post-Op Diagnosis: Same Anesthesia Technique: JERSON Primary Surgeon: Esau Shi Anesthesia Provider: Cyndie Almazan Complications: None Condition: Good
[2019-02-09 16:24] VITALS: BP 116/82; PULSE 74
--- NOTE | 2019-02-10 10:19 | OR ---
Date of Procedure: 02/09/2019 PREOPERATIVE DIAGNOSIS: Anemia. POSTOPERATIVE DIAGNOSES: 1. Duodenal ulcers. 2. Gastritis. 3. Distal esophagitis. 4. Normal colonoscopy. PROCEDURES: 1. Esophagogastroduodenoscopy with biopsies. 2. Colonoscopy. ANESTHESIA: IV sedation. DESCRIPTION OF PROCEDURE: The patient was brought to the procedure room where she was placed on her left side and IV sedation administered. Oral bite block was placed and the upper endoscope advanced into the esophagus under direct vision without difficulty. This was advanced to the third portion of the duodenum and the first portion of the duodenum. She has numerous small superficial ulcerations without evidence of active bleeding. There were approximately 8 of them that I could visualize and these were all approximately 3 mm in diameter. The antrum was normal. I did biopsy this to check for H. pylori. Stomach has evidence of chronic gastritis with inflammation present, but no ulcerations or erosions. Retroflexion was normal. Distal esophagus has chronic inflammation without erosions or ulcerations. I also did biopsy this. Air was removed from the stomach and the scope withdrawn through the remaining esophagus. The patient tolerated this portion of the procedure well. Next, colonoscopy was performed after digital rectal exam was done which was normal. Colonoscope was inserted and advanced to the level of the cecum without difficulty. Cecal position was confirmed by identifying the appendiceal lumen and ileocecal valve. Prep was good with some thick stool remaining that was mostly irrigated and suctioned. Upon withdrawing the scope, the ascending, transverse, and descending colon were normal in appearance. Sigmoid colon and rectum were normal. Retroflexion was normal. Air was removed and the scope withdrawn. The patient tolerated the procedure well and returned to Recovery in stable condition. The patient was started on Protonix when she was in the emergency room 2 days ago and will remain on this. I will have her primary provider follow up with the biopsies, and if H. pylori is present, this should be treated. No further colon screening is necessary due to the patient's age. LISA HADDAD MD /[id number]
== END | disposition home or self-care (01) ==
LOC: LL.SDS 10:59
PROVIDERS: ATTEND Surgery
DX: K29.51 Unspecified chronic gastritis with bleeding (principal); K26.4 Chronic or unspecified duodenal ulcer with hemorrhage; K22.11 Ulcer of esophagus with bleeding; D64.9 Anemia, unspecified; I13.0 Hypertensive heart and chronic kidney disease with heart failure and stage 1 through stage 4 chronic kidney disease, or unspecified chronic kidney disease; E11.22 Type 2 diabetes mellitus with diabetic chronic kidney disease; I50.9 Heart failure, unspecified; N18.9 Chronic kidney disease, unspecified; J44.9 Chronic obstructive pulmonary disease, unspecified; J84.10 Pulmonary fibrosis, unspecified; G30.9 Alzheimer's disease, unspecified; Z88.0 Allergy status to penicillin; Z88.2 Allergy status to sulfonamides; Z88.5 Allergy status to narcotic agent; Z95.0 Presence of cardiac pacemaker; Z87.891 Personal history of nicotine dependence; Z79.4 Long term (current) use of insulin; Z79.899 Other long term (current) drug therapy
CPT/HCPCS: 43239; 45378; 82962; J2704; J7120; 00813; 88305; 88312; 88342; J7620-GY